=== PATIENT | female | born 1970 | race Caucasian/White ===

== ENCOUNTER 2017-05-15 15:57 | Emergency (ER) | payer MEDICAID, SELFPAY ==
[2017-05-15 15:57] VITALS: BP 154/87; PULSE 76; RESP 18; TEMP 36.6; O2SAT 98; BMI 34.4
--- NOTE | 2017-05-15 16:16 | CT_ITS ---
CT Abdomen And Pelvis W/O Contrast INDICATION: LLQ pain, hx diverticulitis. Prior appendectomy, cholecystectomy, partial colectomy, tubal ligation, . COMPARISON: None TECHNIQUE: Axial CT imaging of the abdomen and pelvis with coronal and sagittal reformatted images. Radiation dose optimization technique applied. FINDINGS: Visualized lung bases are clear. The heart size is normal. The liver and spleen are normal in size. The gallbladder is contracted or surgically absent. The kidneys are without evidence of hydronephrosis. 3 right renal calculi are seen measuring up to 2.5 mm. No renal calculi on the left. The bowel loops are nondistended. The appendix is not visualized. There is sigmoid diverticulosis without evidence of acute diverticulitis. The uterus is prominent in size and there is some lobulation at the posterior uterine segment, suggestive of a fibroid. Urinary bladder is decompressed. There is no evidence of free air or free fluid. Osseous structures demonstrate multilevel degenerative changes of the lumbar spine. CT/Abdomen/Pelvis without Cont IMPRESSION: Sigmoid diverticulosis without convincing evidence of acute diverticulitis at this time. Right-sided nephrolithiasis without evidence of hydronephrosis. at [id number] Reported and signed by: Daylin Horn MD Electronically Signed: Daylin Horn MD at 16:25 EST Tel , Service support ,
--- NOTE | 2017-05-15 16:18 | ED.DCSUM_ITS ---
- ER Visit Summary Date of Service: 05/15/17 Chief Complaint: Abdominal pain History of Present Illness: The patient is a 47 F with left lower quadrant abdominal pain that started this morning, about 8 or 9 hours ago, gradually worsening, feels similar to prior episodes of diverticulitis, for which she had to have an emergency partial colectomy in the past. She denies any fevers, nausea, vomiting. She had a normal loose bowel movement this morning without blood or melena. No pain in her back, no problems urinating. Physical Examination: Uncomfortable but in no distress, afebrile, vital signs unremarkable except for mild hypertension. She is moderately tender in the left lower quadrant but nowhere else, there is no guarding or rebound tenderness , abdomen is soft with normal bowel sounds present. No CVA tenderness. Lungs are clear, heart is regular without tachycardia. Oral mucous membranes are moist. Test Results: White blood count is 10.0 with a slight leftward shift. CT shows diverticulosis without convincing evidence of diverticulitis. Urine unremarkable except for trace blood. BMP unremarkable. Emergency Department Course and Treatment: Patient was treated with IV morphine , which helped and she remained stable and comfortable. My suspicion is that she has early diverticulitis despite the negative scan. Certainly there are no complications such as a perforation or an abscess. She was given empiric doses of IV Cipro and Flagyl and prescriptions for home use and she is asking for a work note for tomorrow. Encouraged to return if worse otherwise following up with her doctor for symptoms that persist longer than 5 or so days. Treatment Plan: As above Disposition: Discharge home Impression: Acute early colonic diverticulitis This note was generated with [employer] dictation software. It may contain incorrect words, spelling, and punctuation that were not noted in review of the chart prior to signing ED Disposition - Plan for ED Patient: Disposition: Home or Assisted Living Chief Complaint: Abd Pain Instructions: ED Diverticulitis Prescriptions: Ciprofloxacin [Cipro] 500 mg PO BID #20 tab Metronidazole [Flagyl] 500 mg PO BID #20 tab Referrals: Free Cari Sanchez [NON-STAFF] - 1 Week if not improving ()
[2017-05-15 16:34] LABS: Red Blood Cells-Urine 0 SEEN /hpf (0-5)
[2017-05-15 16:35] LABS: Absolute Lymphocyte Count 2.09 X10^3/ul (0.83-4.51); Absolute Neutrophil Count 7.2 X10^3/uL (2.0-7.7); Basophil# 0.02 X10^3/uL; Basophil% 0.2 % (0-1); Eosinophil# 0.12 X10^3/uL; Eosinophils% 1.2 % (0-5); Hematocrit 39.6 % (37-47); Hemoglobin 13.4 g/dl (12.0-15.0); Lymphocyte # 2.09 X10^3/ul (4.0); Mean Corp Hgb Conc 33.8 g/gl (32-36); Mean Corpuscular Hgb 29.8 pg (27.0-32.0); Mean Platelet Vol. 9.6 fl (6.2-12.0); Monocyte# 0.51 X10^3/uL; Monocyte% 5.1 % (0-10); Neutrophil # 7.19 X10^3/uL (2.7-7.7); Neutrophil % 72.3 % (47-70); POSITIVE COUNT NO; POSITIVE DIFFERENTIAL NO; POSITIVE MORPHOLOGY NO; Platelet Count 293 K/mm3 (150-450); RBC Distribution Width CV 12.9 % (11.6-14.6); RBC Distribution Width SD 40.4 fl (35.1-43.9)
[2017-05-15 16:36] LABS: Color, Urine Yellow (Yellow); Glucose, Dipstick Normal (Normal); Ketone-Dipstick 5 mg/dl (Negative); Leukocyte Esterase-Dipstick Negative /ul (Negative); Nitrite-Dipstick Negative (Negative); Occult Blood-Urine 10 /ul (Negative); Protein-Dipstick 15 mg/dl (Negative); Urine Bilirubin Dipstick Negative (Negative); Urine Clarity Clear (Clear); Urine Urobilinogen 1 mg/dl (Normal)
[2017-05-15 16:49] LABS: Mucous, Urine 3+ /hpf (<or=2+); Squamous Epithelial Cells - UA 5-10 SEEN /hpf (5-10)
[2017-05-15 16:50] LABS: White Blood Cells 0-5 SEEN /hpf (0-5)
[2017-05-15 16:52] LABS: Bacteria 2+ /hpf (None Seen)
[2017-05-15 16:54] LABS: Anion Gap 9 (5-15); BUN 11 mg/dL (7-18); BUN/Creat Ratio 18.6 RATIO (10-20); Calcium,Total 8.4 mg/dL (8.5-10.1); Chloride 107 mmol/L (98-107); Creatinine, Serum 0.59 mg/dL (0.55-1.02); EST Glomerular Filtration Rate 116 mL/min (>60); Est Glom Filt Rate - Afr Amer 140 mL/min (>60); Estimated Creatinine Clearance 94.23 ml/min; Glucose 139 mg/dL (74-106); Potassium 3.5 mmol/L (3.5-5.1); Sodium Level 139 mmol/L (136-145)
[2017-05-15 18:05] VITALS: BP 136/81; PULSE 96; RESP 12; O2SAT 98
[2017-05-15 19:58] VITALS: BP 138/73; PULSE 74; RESP 18; O2SAT 99
[2017-05-15 20:00] VITALS: BP 138/73; PULSE 74; RESP 18; O2SAT 99
== END 2017-05-15 20:10 | disposition home or self-care (01) ==
PROVIDERS: Emergency Provider Emergency Medicine; Family Provider Nurse Practitioner Family; PCP Nurse Practitioner Family
DX: K57.32 Diverticulitis of large intestine without perforation or abscess without bleeding (principal); I10 Essential (primary) hypertension; Z90.49 Acquired absence of other specified parts of digestive tract; F31.9 Bipolar disorder, unspecified
CPT/HCPCS: 74176; 80048; 81001; 85025; 96365; 96375; 99283; J7050; A4216; J0744

== ENCOUNTER 2017-06-04 08:52 | Day surgery (SDC) | payer MEDICAID, SELFPAY ==
[2017-06-04 09:10] VITALS: BP 110/91; PULSE 63; RESP 18; TEMP 36.9; O2SAT 97; BMI 33.3
[2017-06-04 09:14] LABS: Internal QC Validated? YES +Cl - CLEAR BKGD; Pregnancy, Urine Negative Negative
--- NOTE | 2017-06-04 10:48 | PCM.OPRPT ---
Problem List (1) Diverticulitis Status: Acute Report of Operation Date of Procedure: 06/04/17 Pre-Operative Diagnosis: History of diverticulitis and diverticular rupture Post-Operative Diagnosis: Diverticulosis Surgery/Procedure Performed:: Colonoscopy Description of Procedure: The major risks and benefits associated with the procedure were explained to the patient in detail. The patient verbalized understanding and agreement with the same. The patient was brought to the endoscopy suite. After adequate sedation was achieved, the patient was placed in the left lateral decubitus position and a digital rectal exam was performed. This examination was within normal limits. A well-lubricated colonoscope was then inserted into the rectum and advanced under direct visualization to the level of the cecum. The bowel prep was good. The cecum was identified by both visual and anatomic landmarks. A photograph was taken of the end of the cecum. The terminal ileum was intubated and was normal. The scope was then fully withdrawn while examining the color, texture, anatomy and integrity of the mucosa from the cecum to the anal canal. The findings were consistent with normal colonic mucosa. Over 6 minutes were taken to examine the colonic mucosa. The patient did still have some diverticulosis in the descending colon. The anastomosis was patent and normal-appearing. Upon reaching the rectum the scope was retroflexed to examine the distal rectal vault. The scope was then straightened and was completely retrieved upon exiting the anal canal and the procedure was terminated. The patient was then transferred to the recovery room in stable condition. Recommendations for follow up: 10 years
[2017-06-04 10:50] VITALS: BP 110/91; BP 116/63; PULSE 68; RESP 16; TEMP 36.3; O2SAT 98
[2017-06-04 10:55] VITALS: BP 110/91; BP 99/70; PULSE 70; RESP 16; O2SAT 98
[2017-06-04 11:00] VITALS: BP 110/91; BP 118/78; BP 123/69; PULSE 58; PULSE 62; RESP 16; TEMP 36.6; O2SAT 95; O2SAT 99
[2017-06-04 11:22] VITALS: BP 110/91
== END 2017-06-04 11:22 | disposition home or self-care (01) ==
LOC: EN 08:55 → AC 08:56
PROVIDERS: Anesthesiology; Family Provider Nurse Practitioner Family; PCP Nurse Practitioner Family; Visit Provider Surgery
PROC: 0DJD8ZZ Inspection of Lower Intestinal Tract, Via Natural or Artificial Opening Endoscopic (ICD-10-PCS; CPT 45378; principal; 2017-06-04 10:10)
DX: K57.90 Diverticulosis of intestine, part unspecified, without perforation or abscess without bleeding (principal); Z87.891 Personal history of nicotine dependence
CPT/HCPCS: 45378; 81025; J7120

== ENCOUNTER 2017-08-27 17:21 | Emergency (ER) | payer MEDICAID, SELFPAY ==
[2017-08-27 17:22] VITALS: BP 166/105; PULSE 101; RESP 16; TEMP 36.8; O2SAT 100; BMI 32.9
[2017-08-27 17:56] LABS: Glucose, Dipstick Normal (Normal); Ketone-Dipstick 15 mg/dl (Negative); Leukocyte Esterase-Dipstick Negative /ul (Negative); Nitrite-Dipstick Positive (Negative); Occult Blood-Urine 150 /ul (Negative); Protein-Dipstick 100 mg/dl (Negative); Urine Clarity Cloudy (Clear); Urine Urobilinogen 8 mg/dl (Normal)
[2017-08-27 18:00] LABS: Color, Urine SEE COMMENT BELOW (Yellow); Urine Bilirubin Dipstick 6 mg/dL (Negative)
--- NOTE | 2017-08-27 18:05 | CT_ITS ---
STUDY: CT ABDOMEN AND PELVIS WITHOUT CONTRAST REASON FOR EXAM: Female, 47 years old. Right-sided flank pain. History of diverticulitis, appendectomy, cholecystectomy and colectomy. RADIATION DOSAGE (If Supplied By Facility): CTDIvol = ( 11.75 ) mGy, DLP = ( 578.31 ) mGycm TECHNIQUE: Transaxial images were obtained from the dome of the diaphragm to the symphysis pubis without oral contrast, and without intravenous contrast. Sagittal and coronal images were reconstructed. Individualized dose optimization techniques were used for this CT. COMPARISON: Prior abdomen and pelvic CT exam of May 15, 2017 FINDINGS: The visualized lung bases are unremarkable. The visualized portions of the heart are within normal limits. Normal liver. There are surgical clips in the gallbladder fossa consistent with a prior cholecystectomy. Normal spleen. Normal pancreas. Normal bilateral adrenal glands. Moderate hydronephrosis of the right kidney and a dilated ureter to the level of a 3 mm stone at the right ureterovesicular junction. There is an additional 1 mm nonobstructing stone in the upper pole of the right kidney and a 1 mm stone in the lower mid pole of the right kidney. Normal left kidney without hydronephrosis or stones. Normal visualized stomach. Normal small intestine. Diverticulosis of the colon without evidence of acute diverticulitis. There are surgical clips in the region of the appendix consistent with a prior appendectomy. Normal abdominal aorta. Normal inferior vena cava. Normal retroperitoneum. 4.8 cm fibroid at the posterior uterine body. Negative for adnexal mass or free fluid of the pelvis. Small dysraphism of the anterior abdominal wall at the umbilicus. There are diffuse degenerative changes of the visualized lumbar spine. CT/Abdomen/Pelvis without Cont IMPRESSION: Moderate hydronephrosis of the right kidney secondary to a 3 mm stone at the right ureterovesicular junction. There are additional 1 mm nonobstructing stones in the right kidney in the upper and lower midpole. Normal left kidney without hydronephrosis or stones. Status post cholecystectomy. Diverticulosis. Status post appendectomy. 4.8 cm uterine fibroid. Small dysraphism of the anterior abdominal wall at the umbilicus. Electronically Signed: Ignacia De Luna MD at 19:08 EDT , Service support ,
[2017-08-27 18:18] LABS: Bacteria 1+ /hpf (None Seen); Mucous, Urine 1+ /hpf (<or=2+); Red Blood Cells-Urine 5-10 SEEN /hpf (0-5); Squamous Epithelial Cells - UA 5-10 SEEN /hpf (5-10); White Blood Cells 0-5 SEEN /hpf (0-5)
[2017-08-27 18:24] LABS: Pregnancy, Serum, hCG Quali. NEGATIVE Negative (0-9 Nonpreg)
[2017-08-27] MEDS: Ondansetron 4 MG/2 ML Vial IV (18:24)
[2017-08-27] MEDS: Morphine 4 MG/ML Syringe IV (18:24)
[2017-08-27] MEDS: 0.9% Normal Saline 1,000 ML 250 ML IV (18:25)
[2017-08-27] MEDS: Ketorolac 30 MG/ML Syringe IV (18:25)
[2017-08-27 18:32] LABS: Absolute Neutrophil Count 13.3 X10^3/uL (2.0-7.7); Basophil# 0.02 X10^3/uL; Basophil% 0.1 % (0-1); Eosinophil# 0.02 X10^3/uL; Eosinophils% 0.1 % (0-5); Hemoglobin 14.2 g/dl (12.0-15.0); Lymphocyte % 8.3 % (19-41); Mean Corp Hgb Conc 33.8 g/gl (32-36); Mean Corpuscular Hgb 29.4 pg (27.0-32.0); Mean Platelet Vol. 9.3 fl (6.2-12.0); Monocyte# 1.06 X10^3/uL; Monocyte% 6.7 % (0-10); Neutrophil # 13.29 X10^3/uL (2.7-7.7); Neutrophil % 84.6 % (47-70); Platelet Count 347 K/mm3 (150-450); RBC Distribution Width CV 12.4 % (11.6-14.6); Red Blood Count 4.83 M/mm3 (4.2-5.4); White Blood Count 15.7 K/mm3 (4.4-11.0)
[2017-08-27 18:39] LABS: POSITIVE COUNT NO; POSITIVE DIFFERENTIAL NO; POSITIVE MORPHOLOGY NO
[2017-08-27 18:41] LABS: Anion Gap 12 (5-15); BUN 11 mg/dL (7-18); BUN/Creat Ratio 11.1 RATIO (10-20); Calcium,Total 9.5 mg/dL (8.5-10.1); Chloride 104 mmol/L (98-107); EST Glomerular Filtration Rate 64 mL/min (>60); Est Glom Filt Rate - Afr Amer 77 mL/min (>60); Glucose 137 mg/dL (74-106); Potassium 3.2 mmol/L (3.5-5.1); Sodium Level 135 mmol/L (136-145)
--- NOTE | 2017-08-27 20:14 | ED.DCSUM_ITS ---
- ER Visit Summary Date of Service: 08/27/17 Chief Complaint: Right flank pain History of Present Illness: The patient is a 47 F with rather quick onset of right flank pain today. Patient states she has had some dysuria today but no obvious hematuria. She reports nausea but no vomiting. She has had subjective fevers. Past history significant for ovarian cyst, diverticulitis, and bipolar disorder. Patient has had prior appendectomy. Physical Examination: Blood pressure is 166/105, temperature 98.2, heart rate 101, respiratory rate 16, pulse ox 100% on room air. Patient's lying in bed. She is uncomfortable and holding her right lower quadrant. Head and neck examination is unremarkable. Heart is regular rate and rhythm. Lung sounds are clear. Abdomen is soft with mild tenderness to the right lower quadrant. There is no guarding or rebound and she allows deep palpation throughout. No active bowel sounds are noted. Back examination does reveal mild CVA tenderness on the right. Test Results: CBC was a white count of 15.7 with 85% neutrophils. Chemistry studies are significant for a sodium of 135, potassium 3.2, bicarb 19. Urinalysis is positive for nitrites and 150 of blood. She has 0-5 white blood cells of 5-10 epithelial cells. Patency test is negative. CT flank reveals moderate hydronephrosis of the right kidney secondary to 3 mm stone at the right UVJ. Emergency Department Course and Treatment: Patient was given Toradol, morphine, Zofran, and IV fluids. A repeat evaluation she is resting much more comfortably. Test results were discussed with her. Urine was sent for culture. Patient was given specific return instructions is given prescriptions for Toradol, [place], and Zofran. The time of discharge vital signs include blood pressure of 138/81 with a heart rate of 74. Treatment Plan: [] Disposition: Discharge Impression: right-sided ureterolithiasis This note was generated with [employer] dictation software. It may contain incorrect words, spelling, and punctuation that were not noted in review of the chart prior to signing ED Disposition - Plan for ED Patient: Disposition: Home or Assisted Living Chief Complaint: Flank Pain Instructions: ED Stone Renal W Colic Prescriptions: Ondansetron [Zofran Odt] 4 mg PO Q8H PRN PRN #10 tab PRN Reason: Nausea Hydrocodone/Acetaminophen [[place] 5-325 Tablet] 1 - 2 each PO 4X/DAY PRN PRN 5 Days #20 tablet PRN Reason: Pain Ketorolac [Toradol] 10 mg PO Q6H PRN #14 tab PRN Reason: Pain Referrals: Alexy Gamble MD [STAFF PHYSICIAN] - 3-5 Days if not improving Nita Jensen STATUE CARVER-C [Primary Care Provider] -
--- NOTE | 2017-08-27 20:14 | ED.DEP ---
ED Disposition - Plan for ED Patient: Disposition: Home or Assisted Living Chief Complaint: Flank Pain Instructions: ED Stone Renal W Colic Prescriptions: Ondansetron [Zofran Odt] 4 mg PO Q8H PRN PRN #10 tab PRN Reason: Nausea Hydrocodone/Acetaminophen [[place] 5-325 Tablet] 1 - 2 each PO 4X/DAY PRN PRN 5 Days #20 tablet PRN Reason: Pain Ketorolac [Toradol] 10 mg PO Q6H PRN #14 tab PRN Reason: Pain Referrals: Nita Jensen, CHASE-C [Primary Care Provider] - Alexy Gamble MD [STAFF PHYSICIAN] - 3-5 Days if not improving
--- NOTE | 2017-08-27 20:18 | DCINST.ED_ITS ---
ED Disposition - Plan for ED Patient: Disposition: Home or Assisted Living Chief Complaint: Flank Pain Instructions: ED Stone Renal W Colic Prescriptions: Ondansetron [Zofran Odt] 4 mg PO Q8H PRN PRN #10 tab PRN Reason: Nausea Hydrocodone/Acetaminophen [[place] 5-325 Tablet] 1 - 2 each PO 4X/DAY PRN PRN 5 Days #20 tablet PRN Reason: Pain Ketorolac [Toradol] 10 mg PO Q6H PRN #14 tab PRN Reason: Pain Referrals: Nita Jensen, [facility]C [Primary Care Provider] - Alexy Gamble MD [STAFF PHYSICIAN] - 3-5 Days if not improving
[2017-08-27 20:35] VITALS: BP 138/81; PULSE 74; RESP 16
== END 2017-08-27 20:35 | disposition home or self-care (01) ==
PROVIDERS: Emergency Provider Emergency Medicine; Family Provider Nurse Practitioner Family; PCP Nurse Practitioner Family
DX: N20.1 Calculus of ureter (principal); Z87.891 Personal history of nicotine dependence; N13.30 Unspecified hydronephrosis
CPT/HCPCS: 74176; 80048; 81001; 84703; 85025; 87086; 99283; J7030; J2405

== ENCOUNTER 2017-09-06 15:49 | Emergency (ER) | payer MEDICAID, SELFPAY ==
--- NOTE | 2017-09-06 15:49 | DT_ITS ---
This patient was seen during an EMR downtime September 06, 2017 - September 13, 2017. This patient may have a combination of paper and electronic documentation or all paper documentation. All documentation is viewable within the e-chart portion of [employer] for each patient visit.
--- NOTE | 2017-09-06 19:10 | RAD_ITS ---
STUDY: X-RAY - RIGHT RADIUS AND ULNA REASON FOR EXAM: Female, 47 years old. Trauma TECHNIQUE: 2 view(s) of the forearm. COMPARISON: None. FINDINGS: There is no evidence of fracture or dislocation. There are no significant degenerative changes. There are no radiodense foreign bodies. RAD/Forearm 2 Views IMPRESSION: No fracture or dislocation. Electronically Signed: Tomi Saenz, at 18:05 EDT Tel , Service support ,
== END 2017-09-06 20:00 | disposition home or self-care (01) ==
LOC: ED 09-08 13:49
PROVIDERS: Emergency Provider Emergency Medicine; Family Provider Nurse Practitioner Family; PCP Nurse Practitioner Family
DX: S50.11XA Contusion of right forearm, initial encounter (principal); X58.XXXA Exposure to other specified factors, initial encounter; J44.9 Chronic obstructive pulmonary disease, unspecified
CPT/HCPCS: 73090; 99282

== ENCOUNTER → 2017-11-09 11:01 | Outpatient (CLI) | payer MEDICAID, SELFPAY ==
--- NOTE | 2017-11-09 19:55 | LEAS_ITS ---
Arterial Study - Arterial Study Arterial Study: This is a 47-year-old female with a history of hypertension, hyperlipidemia, and leg pain. Suspecting the presence of atherosclerotic peripheral arterial occlusive disease, the patient was brought to the noninvasive vascular laboratory at this time for the purpose of bilateral noninvasive lower extremity arterial assessment. Doppler signal assessment was used to evaluate the pulses at ankle level bilaterally. The posterior tibial and dorsalis pedis pulses were triphasic bilaterally. Segmental limb pressures were obtained at ankle level bilaterally. The right ankle pressure, as determined by posterior tibial pulse, was measured at 208 mmHg. The right ankle pressure, as determined by dorsalis pedis pulse, was measured at 186 mmHg. The left ankle pressure, as determined by posterior tibial pulse, was measured at 211 mmHg. The left ankle pressure, as determined by dorsalis pedis pulse, was measured at 182 mmHg. Pulse-volume recordings were obtained bilaterally and segmentally. Waveform amplitudes appeared to be satisfactory at all levels bilaterally, including low thigh, calf, ankle, and digital levels. Resting ankle-brachial indices were calculated bilaterally. The resting right ankle-brachial index was calculated to be 1.25. The resting left ankle- brachial index was calculated to be 1.27. Impression: Based upon the findings of this resting noninvasive lower extremity arterial study, there is no evidence of significant atherosclerotic peripheral arterial occlusive disease in the lower extremities bilaterally. Triphasic waveforms are noted at ankle level bilaterally. Resting ankle-brachial indices were bilaterally normal. In summary, this represents a normal resting noninvasive lower extremity arterial study bilaterally. An exercise portion of the study was not performed as the patient was fearful of falling.
== END ==
DX: R60.9 Edema, unspecified (principal)
CPT/HCPCS: 93923

== ENCOUNTER 2017-11-11 13:17 | Emergency (ER) | payer MEDICAID, SELFPAY ==
[2017-11-11 13:17] VITALS: BP 140/104; PULSE 108; RESP 16; TEMP 36.4; O2SAT 98; BMI 32.9
--- NOTE | 2017-11-11 13:31 | RAD_ITS ---
STUDY: X-RAY - RIGHT KNEE REASON FOR EXAM: Female, 47 years old. Right knee pain. TECHNIQUE: 4 view(s) of the right knee. COMPARISON: No prior right knee images available. FINDINGS: No finding of acute displaced fracture, dislocation or radiopaque foreign body. Moderate diffuse suprapatellar density noted, may represent joint effusion and/or soft tissue swelling. Visualized bony joint spaces appear intact with moderate medial/patellar femoral and mild lateral compartmental narrowing, subchondral sclerosis and marginal osteophytes noted. Minimal marginal osteophyte projects laterally from the patellar articular margin and medial greater than lateral tibial spines. The soft tissue structures visualized appear nonacute. RAD/Knee 4 or More Views IMPRESSION: Right knee suprapatellar joint effusion and/or soft tissue swelling. Multicompartmental degenerative right knee as described. Electronically Signed: Donald Blackwell, at 14:55 EDT Tel , Service support ,
--- NOTE | 2017-11-11 13:33 | VDLE_ITS ---
Reason For Study: swelling RIGHT GSV is normal. CFV is compressible, spontaneous, phasic, competent and demonstrates normal augmentation. FV is compressible, spontaneous, phasic, competent and demonstrates normal augmentation. POP V is compressible, spontaneous, phasic, competent and demonstrates normal augmentation. T/P Trunk is compressible. PTV is compressible. RT PerV is compressible. Procedure Exam performed portable in ED. The exam was diagnostic. A preliminary report was called and/or faxed to Dr. Chin. Interpretation Summary Deep veins of the right lower extremity are patent and compressible segmentally. There is no evidence of right lower extremity deep vein thrombosis. Valvular competence appears intact within the proximal deep venous system on the right . The right greater saphenous vein appears patent and compressible segmentally. Ordering Physician: Conor Chin Referring Physician: [facility] Cari Sanchez Performed By: Erwin Herring RVT
[2017-11-11] MEDS: Ketorolac 60 MG/2 ML Vial IM (13:43)
--- NOTE | 2017-11-11 14:53 | ED.VISSUMM ---
- ER Visit Summary Date of Service: 11/11/17 Chief Complaint: [] Right knee pain for weeks history of osteoarthritis involving left knee History of Present Illness: The patient is a 47 F [] history of osteoarthritis involving the left knee she has been seen by multiple physicians including orthopedics, she is scheduled to be seen by some rheumatology physician, she is followed by the Cari mitchell in clinic, she indicates for the last week or so she has had worsening pain in the right knee and popping and clicking sensations when she moves the knee consistent with what she experiences in the left knee she has had no direct trauma to the knee she is really not troubled by knee pain involving the right knee again she does indicate she has history of arthritis no fever no cough no history of DVT PE Physical Examination: [] She complaining of pain to the right knee head neck chest unremarkable her vital signs are generally within normal range her general exam really unremarkable the right knee she has full range of motion she feels a popping sensation when she moves the knee but there is full flexion-extension there is no effusion patella is in good position the tib-fib ankle and foot are unremarkable neurovascular function normal there is no signs of DVT and again neurovascular exam is normal, there is nothing to suggest infection Test Results: [] Emergency Department Course and Treatment: [] X-ray shows DJD duplex scan shows nothing acute no DVT or Gray's cyst explained test results to her she does not wish to have crutches she will be given Naprosyn and instructed follow-up with her follow-up physicians as above and return for change in symptoms Treatment Plan: [] Disposition: [] Home stable Impression: [] Right knee pain suspect related to arthritis This note was generated with [employer] dictation software. It may contain incorrect words, spelling, and punctuation that were not noted in review of the chart prior to signing ED Disposition - Plan for ED Patient: Chief Complaint: Lower Extremity Injury Referrals: Tl Sanchez,Cari Moore [Primary Care Provider] -
--- NOTE | 2017-11-11 14:56 | ED.DCSUM_ITS ---
- ER Visit Summary Date of Service: 11/11/17 Chief Complaint: [] Right knee pain for weeks history of osteoarthritis involving left knee History of Present Illness: The patient is a 47 F [] history of osteoarthritis involving the left knee she has been seen by multiple physicians including orthopedics, she is scheduled to be seen by some rheumatology physician, she is followed by the Cari mitchell in clinic, she indicates for the last week or so she has had worsening pain in the right knee and popping and clicking sensations when she moves the knee consistent with what she experiences in the left knee she has had no direct trauma to the knee she is really not troubled by knee pain involving the right knee again she does indicate she has history of arthritis no fever no cough no history of DVT PE Physical Examination: [] She complaining of pain to the right knee head neck chest unremarkable her vital signs are generally within normal range her general exam really unremarkable the right knee she has full range of motion she feels a popping sensation when she moves the knee but there is full flexion- extension there is no effusion patella is in good position the tib-fib ankle and foot are unremarkable neurovascular function normal there is no signs of DVT and again neurovascular exam is normal, there is nothing to suggest infection Test Results: [] Emergency Department Course and Treatment: [] X-ray shows DJD duplex scan shows nothing acute no DVT or Gray's cyst explained test results to her she does not wish to have crutches she will be given Naprosyn and instructed follow-up with her follow-up physicians as above and return for change in symptoms Treatment Plan: [] Disposition: [] Home stable Impression: [] Right knee pain suspect related to arthritis This note was generated with [employer] dictation software. It may contain incorrect words, spelling, and punctuation that were not noted in review of the chart prior to signing ED Disposition - Plan for ED Patient: Chief Complaint: Lower Extremity Injury Referrals: Tl Sanchez,Cari Moore [Primary Care Provider] -
--- NOTE | 2017-11-11 14:56 | ED.DEP ---
ED Disposition - Plan for ED Patient: Chief Complaint: Lower Extremity Injury Instructions: ED Knee Pain UKO Prescriptions: Naproxen [Naprosyn] 500 mg PO BID #14 tab Referrals: Tl Sanchez,Cari Moore [Primary Care Provider] -
== END 2017-11-11 15:04 | disposition home or self-care (01) ==
PROVIDERS: Emergency Provider Emergency Medicine
DX: M25.561 Pain in right knee (principal); M17.12 Unilateral primary osteoarthritis, left knee
CPT/HCPCS: 73564; 93971; 99282

== ENCOUNTER 2017-11-23 19:03 | Emergency (ER) | payer MEDICAID, SELFPAY ==
[2017-11-23 19:03] VITALS: BP 158/94; PULSE 92; RESP 16; TEMP 36.9; O2SAT 98; BMI 32.9
--- NOTE | 2017-11-23 20:13 | ED.DCSUM_ITS ---
- ER Visit Summary Date of Service: 11/23/17 Chief Complaint: Right knee pain History of Present Illness: The patient is a 47 F presenting with right knee pain. She states this started yesterday. She states she tripped over her dog. She twisted her knee. She had no direct trauma to her knee. She has a history of chronic knee pain. She tried ibuprofen at home with some relief. She is able to ambulate with pain. Denies fever or other complaints. Physical Examination: Vitals are stable. Patient is afebrile. Alert no acute distress. HEENT exam is unremarkable. Lungs are clear and equal bilaterally. Heart is regular rate and rhythm. Extremities mild medial right knee tenderness. Active full range of motion. No effusion. Normal distal pulse. No warmth or erythema. Skin is warm and dry. No focal neurologic deficit. Normal strength and sensation. Remainder of exam is unremarkable. Emergency Department Course and Treatment: X-rays are not indicated at this time. She is given one dose of morphine, Zofran IM. She is advised to continue her ibuprofen at home. Advised to follow-up with her primary care physician. Advised return ED for worsening complaints. Disposition: Discharge home Impression: Right knee sprain, chronic right knee pain This note was generated with [employer] dictation software. It may contain incorrect words, spelling, and punctuation that were not noted in review of the chart prior to signing ED Disposition - Plan for ED Patient: Chief Complaint: Lower Extremity Injury Referrals: Nita Jensen NP-C [Primary Care Provider] -
--- NOTE | 2017-11-23 20:21 | ED.DEP ---
ED Disposition - Plan for ED Patient: Chief Complaint: Lower Extremity Injury Instructions: ED Sprain Knee Referrals: Nita Jensen NP-C [Primary Care Provider] -
[2017-11-23] MEDS: morphine 8 MG/ML Syringe IM (20:27)
[2017-11-23] MEDS: Ondansetron 4 MG/2 ML Vial IM (20:28)
--- NOTE | 2017-11-23 20:44 | ED.DEP ---
ED Disposition - Plan for ED Patient: Chief Complaint: Lower Extremity Injury Instructions: ED Sprain Knee Referrals: Nita Jensen, CHASE-C [Primary Care Provider] - Naomie Thakur DO [STAFF PHYSICIAN] -
== END 2017-11-23 20:51 | disposition home or self-care (01) ==
PROVIDERS: Emergency Provider Emergency Medicine; Family Provider Nurse Practitioner Family; PCP Nurse Practitioner Family
DX: M25.561 Pain in right knee (principal); G89.29 Other chronic pain; S83.91XA Sprain of unspecified site of right knee, initial encounter; W01.0XXA Fall on same level from slipping, tripping and stumbling without subsequent striking against object, initial encounter; Y93.9 Activity, unspecified; Y92.89 Other specified places as the place of occurrence of the external cause; Y99.9 Unspecified external cause status
CPT/HCPCS: 99283; J2405

== ENCOUNTER 2018-04-29 22:43 | Emergency (ER) | payer MEDICAID, SELFPAY ==
[2018-04-29 22:43] VITALS: BP 170/103; PULSE 105; RESP 18; TEMP 36.5; O2SAT 97; BMI 34.2
--- NOTE | 2018-04-29 23:00 | ED.VISSUMM ---
- ER Visit Summary Date of Service: 04/29/18 Chief Complaint: Dental pain History of Present Illness: The patient is a 48 F who presents with dental pain. She cracked a tooth while biting into ham earlier today. She broke 1 of her left lower teeth. She has had pain since that time. She has tried Tylenol and Aleve with little relief. She did call and make an appointment with a dentist for May 10. She denies fever. No difficulty swallowing. She denies recent illness. Physical Examination: Afebrile heart rate 105 Patient has a Mcgarry 3 fracture of the left mandibular second molar No trismus Clear speech Heart regular No respiratory distress Alert Test Results: Not indicated Emergency Department Course and Treatment: Left inferior alveolar nerve block was performed here. She was given a home pack of [place] and a prescription for short course of the same. I do not believe antibiotics are indicated at this time. She understands to return for new or worsening symptoms. She was advised to keep her scheduled follow-up with the dentist and was discharged home. Treatment Plan: [] Disposition: Discharge Impression: Dental fracture This note was generated with [employer] dictation software. It may contain incorrect words, spelling, and punctuation that were not noted in review of the chart prior to signing ED Disposition - Plan for ED Patient: Chief Complaint: Dental Referrals: Nita Jensen NP-C [Primary Care Provider] -
--- NOTE | 2018-04-29 23:04 | ED.DCSUM_ITS ---
- ER Visit Summary Date of Service: 04/29/18 Chief Complaint: Dental pain History of Present Illness: The patient is a 48 F who presents with dental pain. She cracked a tooth while biting into ham earlier today. She broke 1 of her left lower teeth. She has had pain since that time. She has tried Tylenol and Aleve with little relief. She did call and make an appointment with a dentist for May 10. She denies fever. No difficulty swallowing. She denies recent illness. Physical Examination: Afebrile heart rate 105 Patient has a Mcgarry 3 fracture of the left mandibular second molar No trismus Clear speech Heart regular No respiratory distress Alert Test Results: Not indicated Emergency Department Course and Treatment: Left inferior alveolar nerve block was performed here. She was given a home pack of [place] and a prescription for short course of the same. I do not believe antibiotics are indicated at this time. She understands to return for new or worsening symptoms. She was advised to keep her scheduled follow-up with the dentist and was discharged home. Treatment Plan: [] Disposition: Discharge Impression: Dental fracture This note was generated with [employer] dictation software. It may contain incorrect words, spelling, and punctuation that were not noted in review of the chart prior to signing ED Disposition - Plan for ED Patient: Chief Complaint: Dental Referrals: Nita Jensen NP-C [Primary Care Provider] -
--- NOTE | 2018-04-29 23:04 | ED.DEP ---
ED Disposition - Plan for ED Patient: Chief Complaint: Dental Instructions: ED Fx Tooth Prescriptions: Hydrocodone Bitart/Apap 5-325 [[place] 5MG-325MG] 1 tab PO Q4H PRN PRN 2 Days #8 tab PRN Reason: Pain Referrals: Nita Jensen, CONTRACT POST OFFICE CLERK-C [Primary Care Provider] -
--- NOTE | 2018-04-29 23:05 | DCINST.ED_ITS ---
ED Disposition - Plan for ED Patient: Chief Complaint: Dental Instructions: ED Fx Tooth Prescriptions: Hydrocodone Bitart/Apap 5-325 [[place] 5MG-325MG] 1 tab PO Q4H PRN PRN 2 Days #8 tab PRN Reason: Pain Referrals: Nita Jensen, MANAGER UNIX-C [Primary Care Provider] -
[2018-04-29] MEDS: HYDROcodone Bitartrate/Apap 5/325 Tablet PO (23:08)
== END 2018-04-29 23:09 | disposition home or self-care (01) ==
PROVIDERS: Emergency Provider Emergency Medicine; Family Provider Nurse Practitioner Family; PCP Nurse Practitioner Family
DX: S02.5XXA Fracture of tooth (traumatic), initial encounter for closed fracture (principal); X58.XXXA Exposure to other specified factors, initial encounter; Y93.9 Activity, unspecified; Y92.89 Other specified places as the place of occurrence of the external cause; Y99.9 Unspecified external cause status
CPT/HCPCS: 64402; 99282

== ENCOUNTER 2018-04-30 21:54 | Emergency (ER) | payer MEDICAID, SELFPAY ==
[2018-04-30 11:26] VITALS: BMI 34.6
[2018-04-30 21:54] VITALS: BP 163/132; PULSE 98; RESP 16; TEMP 36.9; O2SAT 99; BMI 35.8
[2018-04-30 22:01] VITALS: BP 168/114
--- NOTE | 2018-04-30 22:06 | ED.VISSUMM ---
- ER Visit Summary Date of Service: 04/30/18 Chief Complaint: [] Left lower dental pain tooth cracked History of Present Illness: The patient is a 48 F [] she was biting down the tooth is decayed left lower and a cracked the other day was seen in urgent care started on penicillin she has what she reports is ineffective pain management she is scheduled to be seen [facility] next week could not take the pain she came in for evaluation via EMS Physical Examination: [] She is complaining of dental pain no other complaints no trauma afebrile Is an obvious decayed partially cracked tooth to the left lower she has had dental extractions she has other dental decay that are not actively bothering her the floor of the mouth neck is unremarkable chest abdomen upper lower extremities otherwise negative The patient this time we will provide her [place] to cover the cracked tooth Toradol Tylenol for pain Naprosyn for home use continue the antibiotic she was prescribed and follow-up with the dental services for further management is nothing additional can be done through the emergency department for this process Test Results: [] Emergency Department Course and Treatment: [] Treatment Plan: [] Disposition: [] Home stable Impression: [] Dental decay dental pain This note was generated with [employer] dictation software. It may contain incorrect words, spelling, and punctuation that were not noted in review of the chart prior to signing ED Disposition - Plan for ED Patient: Chief Complaint: Dental Referrals: Nita Jensen, CHASE-C [Primary Care Provider] -
--- NOTE | 2018-04-30 22:09 | DCINST.ED_ITS ---
ED Disposition - Plan for ED Patient: Chief Complaint: Dental Instructions: ED Tooth Pain Prescriptions: Naproxen [Naprosyn] 500 mg PO BID PRN #20 tab Referrals: Nita Jensen BILINGUAL CUSTOMER SERVICE-C [Primary Care Provider] -
[2018-04-30] MEDS: Acetaminophen 500 MG Tablet 1000 MG PO (22:50)
[2018-04-30] MEDS: Ketorolac 60 MG/2 ML Vial IM (22:50)
[2018-04-30 23:40] VITALS: PULSE 82; RESP 16
== END 2018-04-30 23:15 | disposition home or self-care (01) ==
LOC: ED 22:15
PROVIDERS: Emergency Provider Emergency Medicine; Family Provider Nurse Practitioner Family; PCP Nurse Practitioner Family
DX: K02.9 Dental caries, unspecified (principal); K08.89 Other specified disorders of teeth and supporting structures; K03.81 Cracked tooth
CPT/HCPCS: 64402; 96372; 99284

== ENCOUNTER 2019-01-21 17:24 | Emergency (ER) | payer MEDICAID, SELFPAY ==
[2019-01-21 17:25] VITALS: BP 154/100; PULSE 97; RESP 14; TEMP 37.6; O2SAT 100; BMI 34.5
--- NOTE | 2019-01-21 17:38 | ED.DCSUM_ITS ---
History of Present Illness Chief Complaint: Back Detail of Chief Complaint: Sciatica Informant: Patient Onset: Days Context: Gradual Onset Current Severity: Moderate Maximum Severity: Moderate Narrative: Patient presents with back pain rating down the right leg consistent with prior bouts of sciatica. She has had sciatica in the left leg before but never on the right. She did start a new job recently has been on her feet more than normal. She denies any direct trauma to her back. Pain goes on the back of her thigh, wraps to the lateral side of the lower leg, and over the top of her foot. Past Medical History - Allergies and Home Meds Allergies/Adverse Reactions: Allergies latex Allergy (Verified 01/21/19 17:27) Rash Primary Care Physician: Nita Jensen NP-C [Primary Care Provider] - Prior records reviewed: Yes Past Medical History: - - Reviewed Surgical History: appendectomy, cholecystectomy, - - Tubal ligation, Lives: With Family Smoking Status: Current every day smoker - Family History Maternal Family History: Family History (Last Updated 04/30/18 @ 11:26 by Aure Butler) Mother Hypertension High cholesterol Father Hypertension Other Cancer Family History: Reports: Hypertension Paternal Family History: Family History (Last Updated 04/30/18 @ 11:26 by Aure Butler) Mother Hypertension High cholesterol Father Hypertension Other Cancer Family History: Reports: Heart Disease, Hypertension Review of Systems General: Denies: Chills, Fever Eyes: Denies: Visual changes - bilaterally ENT: Denies: Bilateral ear pain Cardiovascular: Denies: Chest pain Respiratory: Denies: Dyspnea Gastrointestinal: Denies: Abdominal pain Musculoskeletal: Reports: Back pain, Extremity Pain. Denies: Swelling Skin: Denies: Rash Neurological: Denies: Weakness, Parasthesia Hematologic: Denies: Easy bruising Allergy: Denies: Uticaria Physical Exam Vital Signs/Narrative: Vital Signs Temp Pulse Resp BP Pulse Ox 01/21/19 17:25 99.6 F H 97 14 154/100 H 100 Inital Vital Signs reviewed: Yes General: Well nourished, Well developed Head: Normocephalic ENT: Moist mucous membranes Neck: Supple Cardiovascular: Regular rate, Regular rhythm Respiratory: No distress, CTA bilaterally Abdomen: Soft, Nontender Back: - - Reproducible tenderness in the right sciatic notch. No midline lumbar tenderness. Skin: Normal color Neurological: Alert, Oriented x3, Normal Strength, Normal Sensation, - - 1+ bilateral patellar reflexes. Strong distal pulses are noted. Psychological: Normal affect Diagnostic/Tx/Re-eval - Medical Decision Making Patient is requesting a shot will be given Kenalog IM here. She will also be given naproxen and Flexeril. ED Disposition - Plan for ED Patient: Disposition: Home or Assisted Living Diagnosis: Sciatica Instructions: BACK PAIN w/ SCIATICA Prescriptions: cycloBENZAPRine HCl [Flexeril] 10 mg PO TID PRN #10 tablet PRN Reason: Muscle Spasm Naproxen [Naprosyn] 500 mg PO BID PRN PRN #20 tablet PRN Reason: Pain Score 1-10/10 Referrals: Nita Jensen, PHYSICAL ANTHROPOLOGIST-C [Primary Care Provider] - 1 Week
[2019-01-21 18:08] VITALS: RESP 20
[2019-01-21] MEDS: Naproxen 500 MG Tablet PO (18:10)
[2019-01-21] MEDS: cycloBENZAPRine HCl 10 MG Tablet PO (18:11)
[2019-01-21] MEDS: Triamcinolone Acetonide 40 MG/ML Vial 80 MG IM (18:11)
[2019-01-21 18:38] VITALS: PULSE 88; RESP 16; O2SAT 99
== END 2019-01-21 18:39 | disposition home or self-care (01) ==
PROVIDERS: Emergency Provider Emergency Medicine
DX: M54.30 Sciatica, unspecified side (principal); F17.200 Nicotine dependence, unspecified, uncomplicated; Z82.49 Family history of ischemic heart disease and other diseases of the circulatory system; Z90.49 Acquired absence of other specified parts of digestive tract; Z91.040 Latex allergy status
CPT/HCPCS: 96372; 99283

== ENCOUNTER 2019-08-24 14:27 | Emergency (ER) | payer MEDICAID, SELFPAY ==
[2019-02-16 16:45] VITALS: BMI 34.5
[2019-08-24 14:27] VITALS: BP 155/93; PULSE 99; RESP 16; TEMP 36.4; O2SAT 98; BMI 33.7
--- NOTE | 2019-08-24 15:35 | ED.DCSUM_ITS ---
History of Present Illness Chief Complaint: Back Informant: Patient Onset: Yesterday Context: Gradual Onset Injury: Fall Quality: Sharp, Aching Narrative: Is a 49-year-old female with history of anxiety presenting with right buttocks pain. Patient states she fell down some steps a couple days ago when she slipped while taking out her dog. She is had pain in her left buttock since. She is tried taking Motrin with no relief of her pain at home. She denies any associated numbness or weakness of the leg. The pain does not radiate. She denies any incontinence, saddle anesthesia or fever. Patient states she has had sciatica in the past and has had to get a pain shot in the past. Patient denies any other injury when she fell. She denies any other complaints at this time. Past Medical History - Allergies and Home Meds Allergies/Adverse Reactions: Allergies latex Allergy (Verified 01/21/19 17:27) Rash Primary Care Physician: [facility] Cari Sanchez [Primary Care Provider] - Past Medical History: - - Anxiety Surgical History: appendectomy, cholecystectomy, - - Tubal ligation, Lives: With Family Smoking Status: Former smoker - Family History Maternal Family History: Family History (Last Updated 04/30/18 @ 11:26 by Aure Butler) Mother Hypertension High cholesterol Father Hypertension Other Cancer Family History: Reports: Hypertension Paternal Family History: Family History (Last Updated 04/30/18 @ 11:26 by Aure Butler) Mother Hypertension High cholesterol Father Hypertension Other Cancer Family History: Reports: Heart Disease, Hypertension Review of Systems General: Denies: Chills, Fever, Sweats Eyes: Denies: Visual changes - bilaterally, Diplopia ENT: Denies: Rhinorrhea, Sore throat Cardiovascular: Denies: Chest pain, Palpitations Respiratory: Denies: Dyspnea, Cough, Dyspnea on exertion Gastrointestinal: Denies: Abdominal pain, Nausea, Vomiting, Diarrhea Genitourinary: Denies: Dysuria, Hematuria, Frequency Musculoskeletal: Reports: Extremity Pain - Left buttocks. Denies: Back pain Skin: Denies: Rash, Wounds Neurological: Denies: Headache, Weakness, Numbness Physical Exam Vital Signs/Narrative: Vital Signs Temp Pulse Resp BP Pulse Ox 08/24/19 14:27 97.5 F L 99 16 155/93 H 98 Inital Vital Signs reviewed: Yes General: Well nourished, Well developed Head: Normocephalic, Atraumatic Eyes: Perrl, EOMI ENT: Moist mucous membranes, No rhinorrhea, TM's clear Neck: Supple, Nontender Cardiovascular: Regular rate, Regular rhythm, No murmurs Respiratory: No distress, CTA bilaterally, Chest nontender Abdomen: Soft, Nontender, Nondistended, Normal bowel sounds Back: Normal Inspection, Nontender, Negative SLR - Right, Negative SLR - Left. Negative for: Spinal tenderness, Paraspinal Tenderness, CVA tenderness Extremeties: No edema, Strong Pulses, Symmetric, - - Very reproducible tenderness palpation of the center of the right gluteus muscle. Negative for: Edema Skin: Normal color, No rash Neuro: Alert, Oriented, Normal Strength, Normal Sensation, Normal DTR, Normal Gait Psychological: Normal affect, Normal Mood Diagnostic/Tx/Re-eval - Medical Decision Making She is evaluated for right buttocks pain. She has a normal neurologic exam. She does not have any red flag symptoms for cauda equina syndrome. The pain is quite reproducible on palpation. She denies any bony tenderness. I do not think imaging is indicated. I do question if she has sciatica versus piriformis syndrome. Regardless, patient is treated with IM morphine in the emergency room be discharged home in a muscle relaxer. She is agreeable this plan. She is given a work note for today. Patient is counseled on signs and symptoms requiring return to the emergency room. Patient verbalizes agreement and understand this plan. Patient discharged home in stable and improved condition. ED Disposition - Plan for ED Patient: Disposition: Home or Assisted Living Diagnosis: Right buttock pain Instructions: ED Back Pain Acute or Chronic Prescriptions: cycloBENZAPRine HCl [Flexeril] 10 mg PO TID PRN PRN #15 tab PRN Reason: Muscle Spasm Transmission Status: Pending to [facility] Referrals: Cari Nguyen [Primary Care Provider] -
[2019-08-24] MEDS: morphine 8 MG/ML Syringe 6 MG IM (15:49)
[2019-08-24 16:23] VITALS: BP 129/84; PULSE 62; RESP 15; O2SAT 97
== END 2019-08-24 16:24 | disposition home or self-care (01) ==
PROVIDERS: Emergency Provider Emergency Medicine
DX: M54.5 Low back pain (principal); Z87.891 Personal history of nicotine dependence
CPT/HCPCS: 96372; 99282

== ENCOUNTER 2019-09-07 14:59 | Emergency (ER) | payer MEDICAID, SELFPAY ==
[2019-09-07 15:00] VITALS: BP 167/113; PULSE 98; RESP 16; TEMP 36.5; O2SAT 98; BMI 33.5
[2019-09-07] MEDS: 0.9% Normal Saline 1,000 ML 150 ML IV (15:30)
[2019-09-07 15:40] LABS: Absolute Lymphocyte Count 2.14 X10^3/uL (0.83-4.51); Absolute Neutrophil Count 5.6 X10^3/uL (2.0-7.7); Basophil# 0.04 X10^3/uL; Basophil% 0.5 % (0-1); Eosinophil# 0.11 X10^3/uL; Eosinophils% 1.3 % (0-5); Hematocrit 45.3 % (37-47); Hemoglobin 14.7 g/dL (12.0-15.0); Lymphocyte # 2.14 X10^3/ul (4.0); Lymphocyte % 24.7 % (19-41); Mean Corp Hgb Conc 32.5 g/dL (32-36); Mean Corpuscular Hgb 29.1 pg (27.0-32.0); Mean Corpuscular Volume 89.7 fL (81-99); Monocyte# 0.71 X10^3/uL; Monocyte% 8.2 % (0-10); NRBC Flagged by Analyzer 0 % (0-5); Neutrophil % 64.6 % (47-70); Platelet Count 346 K/mm3 (150-450); RBC Distribution Width CV 12.7 % (11.6-14.6); RBC Distribution Width SD 41.3 fl (35.1-43.9); Red Blood Count 5.05 M/mm3 (4.2-5.4); White Blood Count 8.7 K/mm3 (4.4-11.0)
[2019-09-07 15:42] VITALS: BP 157/101; BP 160/94; BP 162/119; PULSE 74; PULSE 78; PULSE 85
[2019-09-07 15:55] LABS: Internal QC Validated? YES +Cl - CLEAR BKGD; Pregnancy, Serum, hCG Quali. NEGATIVE Negative
--- NOTE | 2019-09-07 16:16 | ED.DCSUM_ITS ---
- ER Visit Summary Date of Service: 09/07/19 Chief Complaint: [Vaginal bleeding] History of Present Illness: The patient is a 49 F [does the emergency department vaginal bleeding that started 3 days ago. Patient states that she had not had any bleeding in 244 days until 3 days ago. Patient felt that she was menopausal. She denies any real abdominal discomfort and said she just had some mild cramping yesterday but none today. Patient denies any trauma to her vagina. He denies urinary symptoms. Today she did not feel like she could go to work because she was feeling weak and lightheaded. Patient states that she has been going through about 4-5 bladder pads per day. She did have one large clot she passed the other day but since then is really only been just small clots. Patient has history of anxiety and bipolar disorder.] Physical Examination: HEENT-PERRLA, EOMI. Cranial nerves II through XII grossly intact. TMs clear. Mucous membranes moist. No adenopathy. Cardiovascular-regular rate and rhythm without murmur or ectopy Lungs-clear to auscultation, chest wall stable without crepitus or subcu emphysema Abdomen-normoactive bowel sounds, soft, nontender, no rebound or rigidity, no peritoneal signs. exam-deferred Extremities-intact ?4, normal range of motion, normal pulses, atraumatic] Test Results: [CBC with differential obtained showed a white of 8.7, hemoglobin 14.7, hematocrit 45, platelets 346. hCG was negative. Orthostatic vital signs were negative.] Emergency Department Course and Treatment: [IV line established. Patient was given normal saline at 150 cc an hour.] Treatment Plan: [Patient will be discussed with CHEMICAL CELL CHANGER on-call to assure follow- up.] Disposition: [Discharged home in stable condition] Impression: [Dysfunctional uterine bleeding] This note was generated with [employer] dictation software. It may contain incorrect words, spelling, and punctuation that were not noted in review of the chart prior to signing ED Disposition - Plan for ED Patient: Referrals: Cari Nguyen [Primary Care Provider] -
--- NOTE | 2019-09-07 16:19 | DCINST.ED_ITS ---
ED Disposition - Plan for ED Patient: Instructions: ED Bleed Irregular Vaginal Referrals: [facility],Cari Moore [Primary Care Provider] - Frida Kolb MD [STAFF PHYSICIAN] - 3-5 Days
== END 2019-09-07 17:19 | disposition home or self-care (01) ==
PROVIDERS: Emergency Provider Emergency Medicine
DX: N93.8 Other specified abnormal uterine and vaginal bleeding (principal)
CPT/HCPCS: 84703; 85025; 86850; 86900; 86901; 96360; 96361; 99283; J7030; A4216

== ENCOUNTER 2019-10-18 14:35 | Emergency (ER) | payer MEDICAID, SELFPAY ==
[2019-10-18 14:36] VITALS: BP 158/108; PULSE 93; RESP 18; TEMP 36.6; O2SAT 98; BMI 33.5
--- NOTE | 2019-10-18 15:06 | VDLE_ITS ---
Reason For Study: Pain Procedure LEFT Exam performed portable in ED. GSV is normal. A preliminary report was called and/or faxed CFV is compressible, spontaneous, phasic, to ED. competent, and demonstrates normal augmentation. FV is compressible, spontaneous, phasic, competent and demonstrates normal augmentation. POP V is compressible, spontaneous, phasic, competent and demonstrates normal augmentation. T/P Trunk is compressible. PTV is compressible. LT PerV is compressible. Nonvascularized structure noted in the left popliteal space measuring approximently 1.83 x 2.04 x 3.52 cm. Interpretation Summary There is no evidence of left lower extremity deep vein thrombosis. Left great saphenous vein appears patent and compressible segmentally. Left popliteal cystic structure 1.83 x 2.04 x 3.52 cm consistent with a Gray's cyst. Clinical correlation would be appropriate. Ordering Physician: Artem Chun Referring Physician: Cari Moore [facility] Performed By: Sheryl Wright RVT
--- NOTE | 2019-10-18 16:20 | ED.VISSUMM ---
- ER Visit Summary Date of Service: 10/18/19 Chief Complaint: Left knee pain History of Present Illness: The patient is a 49 F who goes to the [facility]ari [facility]. She has a history of left total knee replacement by Dr. Wilkinson. Reports that approximately 1 hour ago she had the abrupt onset of a pain in the back of her knee. Was a stabbing pain is 7-10 at worst. She is pain-free currently. It is worsened by standing up or moving her toes. Is relieved by rest. She denies any recent trauma. No fall, MVA or change in activity. Physical Examination: Vitals: Stable. Afebrile. General: Well-nourished and well-developed. Head: Normocephalic atraumatic. Neck: Supple, no lymphadenopathy. No JVD. Nontender. Cardiovascular: Regular rate and rhythm. No murmurs. Respiratory: No respiratory distress. Clear to auscultation bilaterally. Abdominal: Soft, nontender, nondistended, normal bowel sounds. No guarding, rebound, or peritoneal signs. Back: Nontender. Extremities: Incision to left knee is well-healed. There is no erythema or warmth to suggest a septic joint. She has no pain with short arc movements. She has mild tenderness palpation in the popliteal fossa. She has no edema distally. She is a 2+ dorsalis pedis pulse. Skin: Normal color, no rash. Neurologic: Alert and oriented ?3. Cranial nerves II through XII are intact. Normal strength and sensation. Psych: Normal affect. Test Results: Left lower extremity Doppler shows no DVT. It does appear to show a ruptured Gray's cyst. Emergency Department Course and Treatment: Patient refused pain medications. She is resting comfortably. Treatment Plan: Patient will be discharged instructions follow-up Dr. Wilkinson in 1 week if not improving. She is instructed on symptomatic management. Return to the emergency department for any worsening symptoms. Disposition: To home in improved and stable condition. Impression: 1. Gray's cyst on the left. This note was generated with [employer] dictation software. It may contain incorrect words, spelling, and punctuation that were not noted in review of the chart prior to signing ED Disposition - Plan for ED Patient: Disposition: Home or Assisted Living Instructions: ED Cyst Gray Referrals: Tl Sanchez,Cari Moore [Primary Care Provider] - 1 Week if not improving
[2019-10-18 16:46] VITALS: BP 142/84; PULSE 87; RESP 17; O2SAT 98
== END 2019-10-18 16:47 | disposition home or self-care (01) ==
PROVIDERS: Emergency Provider Emergency Medicine
DX: M71.22 Synovial cyst of popliteal space [Baker], left knee (principal); Z96.652 Presence of left artificial knee joint; R05 Cough; J44.9 Chronic obstructive pulmonary disease, unspecified
CPT/HCPCS: 93971; 99282

== ENCOUNTER 2019-12-23 12:15 | Emergency (ER) | payer MEDICAID, SELFPAY ==
[2019-12-23 12:16] VITALS: BP 157/114; PULSE 89; RESP 14; TEMP 36.2; O2SAT 99; BMI 74.6
--- NOTE | 2019-12-23 12:22 | ED.VIS.BACK ---
History of Present Illness Chief Complaint: Back Informant: Patient Onset: Weeks - 1 Context: Sudden Onset Injury: Fall Timing: Continuous Quality: Aching Location: Lumbar - R, Buttock - R Current Severity: Moderate Maximum Severity: Moderate Worsened by: improves with: Movement, Bending Relieved by: Remaining Still Narrative: Patient states she has had this discomfort before, she chronically gets it intermittently. This time, 1 week ago, she was walking her dog and it pulled her down to her knees, this jason her in the right low back, exacerbating/causing this recurrent discomfort that has been persistent for the past week. Same pain she has had in the past. Denies any bowel or bladder dysfunction, saddle anesthesia, paresthesias or numbness in her lower extremities or radiation down distal to the buttock. Prior similar symptoms: Yes, With Prior Back Pain - Past Medical History (1) Anxiety disorder Status: Chronic (2) Bipolar disorder Status: Chronic Past Medical History - Allergies and Home Meds Allergies/Adverse Reactions: Allergies latex Allergy (Verified 12/23/19 12:16) Rash [facility] - Surgical History: appendectomy, cholecystectomy, - - Tubal ligation, Smoking Status: Former smoker - Family History Maternal Family History: Family History (Last Updated 04/30/18 @ 11:26 by Aure Butler) Mother Hypertension High cholesterol Father Hypertension Other Cancer Family History: Reports: Hypertension Paternal Family History: Family History (Last Updated 04/30/18 @ 11:26 by Aure Butler) Mother Hypertension High cholesterol Father Hypertension Other Cancer Family History: Reports: Heart Disease, Hypertension Review of Systems General: Denies: Chills, Fever, Sweats Gastrointestinal: Reports: - - no incontinence or retention of bowel/bladder. Denies: Abdominal pain, Nausea, Vomiting, Constipation Musculoskeletal: Reports: Back pain. Denies: Neck pain, Swelling, Extremity Pain Skin: Denies: Rash, Wounds Neurological: Denies: Headache, Weakness, Numbness Physical Exam Vital Signs/Narrative: Vital Signs Temp Pulse Resp BP Pulse Ox 12/23/19 12:16 97.2 F L 89 14 157/114 H 99 Inital Vital Signs reviewed: Yes General: Well nourished, Well developed, Obese, - - NAD Head: Normocephalic, Atraumatic Eyes: Perrl, EOMI Neck: Supple, Nontender Back: Normal Inspection, Paraspinal Tenderness - Right lumbosacral and into buttock, basically surrounding the right SI joint. No step-off or abnormal inspection of the area. Nontender greater trochanter, painless range of motion of the hip joint., Negative SLR - Right, Negative SLR - Left. Negative for: Spinal tenderness, CVA tenderness Extremeties: Nontender, No edema Skin: Normal color, No rash Neuro: Alert, Oriented, Normal Strength, Normal Sensation, Normal DTR - No clonus, toes downgoing bilaterally, Normal Gait Psychological: Normal affect Diagnostic/Tx/Re-eval - Medical Decision Making Reassured patient, she thought that she had a pinched nerve, I doubt this is radicular symptoms. It is probably just musculoskeletal and more likely to be sacroiliac joint dysfunction. She states I usually get a shot here in the ER in the buttock and that helps. Given Toradol and reassured, referred to chiropracty and/or physical therapy. ED Disposition - Plan for ED Patient: Disposition: Home or Assisted Living Diagnosis: Sacroiliac joint pain Instructions: ED LUMBAR SPRAIN/STRAIN, ED Sacroiliitis Referrals: [facility],Cari Moore [Primary Care Provider] - As Needed (and/or chiropractor; may need to visit PCP to get referral to physical therapy, if you want to go that route)
[2019-12-23] MEDS: Ketorolac 60 MG/2 ML Vial IM (12:39)
[2019-12-23 12:46] VITALS: PULSE 87; RESP 17; O2SAT 98
== END 2019-12-23 13:00 | disposition home or self-care (01) ==
PROVIDERS: Emergency Provider Emergency Medicine
DX: M53.3 Sacrococcygeal disorders, not elsewhere classified (principal); E66.9 Obesity, unspecified; F41.9 Anxiety disorder, unspecified; F31.9 Bipolar disorder, unspecified; Z82.49 Family history of ischemic heart disease and other diseases of the circulatory system; Z90.49 Acquired absence of other specified parts of digestive tract; Z91.040 Latex allergy status
CPT/HCPCS: 96372; 99282

== ENCOUNTER → 2020-05-04 13:11 | Outpatient (CLI) | payer MEDICAID, SELFPAY ==
--- NOTE | 2020-05-04 13:20 | RAD_ITS ---
STUDY: X-RAY - LEFT ANKLE REASON FOR EXAM: Female, 50 years old. PAIN AND SWELLING ANTERIOR HEEL, NO KNOWN INJURY TECHNIQUE: 3 view(s) of the ankle. COMPARISON: None. FINDINGS: Normal visualized distal tibia and fibula. Normal medial and lateral malleoli. There are degenerative changes of the tibiotalar joint. Moderate sized calcaneal spur present. There are degenerative changes of the dorsal midfoot. The visualized subtalar, talonavicular, calcaneocuboid and tarsal articulations are normal. There is diffuse soft tissue swelling. RAD/Ankle 2 Views IMPRESSION: Diffuse soft tissue swelling without Electronically Signed: Eran Posadas MD ([place]oks) at 14:26 EST , Service support ,
== END ==
PROVIDERS: Visit Provider Physician Assistant
DX: T14.8XXA Other injury of unspecified body region, initial encounter (principal)
CPT/HCPCS: 73600

== ENCOUNTER 2020-06-22 16:08 | Emergency (ER) | payer MEDICAID, SELFPAY ==
[2020-06-22 16:09] VITALS: BP 172/107; PULSE 113; RESP 14; TEMP 36.3; O2SAT 97; BMI 32.2
--- NOTE | 2020-06-22 16:25 | ED.DCSUM_ITS ---
History of Present Illness Chief Complaint: Abd Pain Informant: Patient Onset: Today, Hours Context: Sudden Onset Timing: Continuous Quality: Pain Location: Periumbilical Current Severity: Mild Maximum Severity: Severe Worsened by: Nothing Relieved by: Nothing Associated Symptoms: Nothing Narrative: This 50-year-old woman with history of diverticulosis and diverticulitis who presents with abrupt onset of periumbilical pain. She states she had similar presentation when diagnosed with diverticulitis. She denies fever, chills night sweats. She denies nausea or vomiting. She does have chronic diarrhea status post cholecystectomy. She denies blood or mucus in her diarrhea. She denies HEENT, cardiac, respiratory or symptoms. She denies rash. She denies allergies to antibiotics. Prior similar symptoms: Yes - Colitis Recent Illness/Hospitalization: No - Past Medical History (1) Diverticulitis Status: Acute (2) Anxiety disorder Status: Chronic (3) Bipolar disorder Status: Chronic Past Medical History - Allergies and Home Meds Allergies/Adverse Reactions: Allergies latex Allergy (Verified 06/22/20 16:11) Rash [facility] - Prior records reviewed: Yes Surgical History: appendectomy, cholecystectomy, - - Tubal ligation, Lives: With Family Smoking Status: Former smoker Alcohol: Rare Drugs: None - Family History Maternal Family History: Family History (Last Reviewed 05/04/20 @ 12:06 by Stella Sibley) Mother Hypertension High cholesterol Father Hypertension Other Cancer Family History: Reports: Hypertension Paternal Family History: Family History (Last Reviewed 05/04/20 @ 12:06 by Stella Sibley) Mother Hypertension High cholesterol Father Hypertension Other Cancer Family History: Reports: Heart Disease, Hypertension Review of Systems General: Denies: Chills, Fever, Malaise, Subjective, Sweats Eyes: Denies: Visual changes - bilaterally, Blurred Vision - bilaterally ENT: Denies: Rhinorrhea, Sore throat Cardiovascular: Denies: Chest pain, Palpitations Respiratory: Denies: Dyspnea, Cough, Dyspnea on exertion Gastrointestinal: Reports: Abdominal pain, Diarrhea. Denies: Nausea, Vomiting, Constipation, Melena, Hematochezia Genitourinary: Denies: Dysuria, Hematuria, Frequency Musculoskeletal: Denies: Myalgias, Arthralgias, Neck pain, Back pain Skin: Denies: Rash, Wounds Neurological: Denies: Headache, Weakness, Parasthesia Endocrine: Denies: Polyuria, Polydipsia Hematologic: Denies: Easy bruising, Easy bleeding Physical Exam Vital Signs/Narrative: Vital Signs Temp Pulse Resp BP Pulse Ox 06/22/20 16:09 97.4 F L 113 H 14 172/107 H 97 Inital Vital Signs reviewed: Yes General: Well nourished, Well developed, Obese Head: Normocephalic, Atraumatic Eyes: Perrl, EOMI. Negative for: Pale conjunctiva, Scleral icterus ENT: Moist mucous membranes, No rhinorrhea Neck: Supple, Nontender, No lymphadenopathy, No JVD Cardiovascular: Regular rhythm, No murmurs, Normal S1, Normal S2, Tachycardia Respiratory: No distress, CTA bilaterally, Chest nontender Abdomen: Soft, Nondistended, No masses, Tender - Tenderness left lower quadrant.. Negative for: Nontender, Normal bowel sounds, Guarding, Rebound tenderness Rectal: Deferred Back: Nontender, Normal Inspection Extremities: Nontender, No edema Skin: Normal color, No Trauma, Rash - Circular rash noted on the abdomen with delayed capillary refill.. Negative for: No rash, Cyanosis, Diaphoresis, Jaundice Neurological: Alert, Oriented x3, Cranial nerves II-XII grossly intact, Normal Strength, Normal Sensation, Normal Gait Psychological: Normal affect Diagnostic/Tx/Re-eval Laboratory Results 06/22/20 06/22/20 06/22/20 16:20 16:25 16:34 WBC 8.0 RBC 5.51 H Hgb 16.1 H Hct 49.3 H MCV 89.5 MCH 29.2 MCHC 32.7 RDW Std Deviation 40.7 RDW Coeff of Nusrat 12.5 Plt Count 378 MPV 9.0 Immature Gran % (Auto) 0.400 Neut % (Auto) 58.3 Lymph % (Auto) 32.9 Richardson % (Auto) 6.3 Eos % (Auto) 1.5 Baso % (Auto) 0.6 Absolute Neuts (auto) 4.7 Absolute Lymphs (auto) 2.63 Nucleated RBC % 0 Sodium 139 Potassium 4.3 Chloride 105 Carbon Dioxide 28.0 Anion Gap 6 BUN 16 Creatinine 0.90 Estim Creat Clear Calc 59.80 Est GFR (MDRD) Af Amer 85 Est GFR (MDRD) Non-Af 71 BUN/Creatinine Ratio 17.7 Glucose 165 H Lactic Acid 1.8 Calcium 9.5 Unremarkable. Patient's cap refill is now normal after 1 L of normal saline on reexamination at 1742. Since she hurts in the left lower quadrant and has had diverticulitis in the past we will treat for diverticulitis. - Medical Decision Making Prior history of diverticulitis and reported diarrhea with tenderness to left lower quadrant suspect patient has diverticulitis. Because she has a look reticular rash with delayed cap refill CBC, BMP and lactate was ordered. Since she is tachycardic she received a fluid bolus. ED Disposition - Plan for ED Patient: Disposition: Home or Assisted Living Diagnosis: Diverticulitis Instructions: ED Diverticulitis Prescriptions: Amox/Clavulanate Tablet [Augmentin Tablet] 875 mg PO Q12H #20 tab Transmission Status: Pending to [facility] Referrals: [facility] Moore [Primary Care Provider] - 3-5 Days if not improving
[2020-06-22 16:30] LABS: Absolute Lymphocyte Count 2.63 X10^3/uL (0.83-4.51); Absolute Neutrophil Count 4.7 X10^3/uL (2.0-7.7); Basophil# 0.05 X10^3/uL; Basophil% 0.6 % (0-1); Eosinophil# 0.12 X10^3/uL; Eosinophils% 1.5 % (0-5); Hematocrit 49.3 % (37-47); Hemoglobin 16.1 g/dL (12.0-15.0); Lymphocyte # 2.63 X10^3/ul (4.0); Lymphocyte % 32.9 % (19-41); Mean Corp Hgb Conc 32.7 g/dL (32-36); Mean Corpuscular Hgb 29.2 pg (27.0-32.0); Mean Corpuscular Volume 89.5 fL (81-99); Monocyte% 6.3 % (0-10); NRBC Flagged by Analyzer 0 % (0-5); Neutrophil # 4.66 X10^3/uL (2.7-7.7); Neutrophil % 58.3 % (47-70); Platelet Count 378 K/mm3 (150-450); RBC Distribution Width CV 12.5 % (11.6-14.6); RBC Distribution Width SD 40.7 fl (35.1-43.9); Red Blood Count 5.51 M/mm3 (4.2-5.4)
[2020-06-22] MEDS: 0.9% Normal Saline 1,000 ML 1000 ML IV (16:46)
[2020-06-22 16:51] LABS: Anion Gap 6 (5-15); BUN 16 mg/dL (7-18); BUN/Creat Ratio 17.7 RATIO (10-20); Calcium,Total 9.5 mg/dL (8.5-10.1); Chloride 105 mmol/L (98-107); EST Glomerular Filtration Rate 71 mL/min (>60); Est Glom Filt Rate - Afr Amer 85 mL/min (>60); Glucose 165 mg/dL (74-106); Potassium 4.3 mmol/L (3.5-5.1); Sodium Level 139 mmol/L (136-145)
[2020-06-22 17:13] LABS: Lactic Acid 1.8 mmol/L (0.4-1.9)
[2020-06-22] MEDS: Amox/Clavulanate 875 MG Tablet PO (18:03)
[2020-06-22 18:04] VITALS: BP 124/77; PULSE 62; RESP 15; O2SAT 98
== END 2020-06-22 18:05 | disposition home or self-care (01) ==
PROVIDERS: Emergency Provider Emergency Medicine
DX: K57.92 Diverticulitis of intestine, part unspecified, without perforation or abscess without bleeding (principal); F31.9 Bipolar disorder, unspecified; Z82.49 Family history of ischemic heart disease and other diseases of the circulatory system; Z83.49 Family history of other endocrine, nutritional and metabolic diseases; Z87.891 Personal history of nicotine dependence; Z90.49 Acquired absence of other specified parts of digestive tract; Z91.040 Latex allergy status; E66.9 Obesity, unspecified; F41.9 Anxiety disorder, unspecified
CPT/HCPCS: 80048; 83605; 85025; 96360; 99284; J7030; A4216

== ENCOUNTER 2020-10-18 18:20 | Emergency (ER) | payer MEDICAID, SELFPAY ==
[2020-10-18 18:21] VITALS: BP 159/104; PULSE 78; RESP 15; TEMP 36.4; O2SAT 99; BMI 32.0
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
[2020-10-18] MEDS: Ondansetron 8 MG Tablet PO (19:01)
[2020-10-18] MEDS: morphine 10 MG/ML Syringe IM (19:02)
[2020-10-18] MEDS: Ketorolac 60 MG/2 ML Vial IM (19:02)
[2020-10-18 19:07] VITALS: RESP 16
== END 2020-10-18 19:54 | disposition home or self-care (01) ==
LOC: ED 18:57
PROVIDERS: Emergency Provider Emergency Medicine
DX: M54.32 Sciatica, left side (principal); F17.200 Nicotine dependence, unspecified, uncomplicated; Z90.49 Acquired absence of other specified parts of digestive tract; Z96.659 Presence of unspecified artificial knee joint; Z98.51 Tubal ligation status; F31.9 Bipolar disorder, unspecified; I10 Essential (primary) hypertension; J45.909 Unspecified asthma, uncomplicated; F41.9 Anxiety disorder, unspecified
CPT/HCPCS: 99282

== ENCOUNTER 2020-11-07 22:42 | Emergency (ER) | payer MEDICAID, SELFPAY ==
[2020-11-07 22:44] VITALS: BP 159/112; PULSE 120; RESP 18; TEMP 36.1; O2SAT 99; BMI 36.8
--- NOTE | 2020-11-07 23:01 | EDS_ITS ---
HPI History of Present Illness Chief Complaint: Bite Informant: patient Narrative Narrative: Patient is a 50-year-old female with history of MRSA presenting with redness and pain of her skin behind her left eye. Patient states she was when she woke up this morning. She states she is a carrier of staph and wanted to catch it before this got worse. She denies any associated fever or systemic symptoms. She denies any other complaints at this time. Patient denies any injuries or bites to the area. PFSH PFS Medical History (Updated 11/07/20 @ 23:[address] Alanna Wheeler DO) Abdominal pain, left lower quadrant Anxiety disorder Arthritis Asthma Bipolar disorder HTN (hypertension) Incontinence Knee pain SOB (shortness of breath) Home Medications cephalexin 500 mg PO Q6 #40 cap 11/07/20 [Rx Last Taken Unknown] Allergy/AdvReac Type Severity Reaction Status Date / Time latex Allergy Rash Verified 11/07/20 22:44 Family History Mother Hypertension High cholesterol Father Hypertension Other Cancer Surgical History History of appendectomy History of History of colectomy History of laparoscopic cholecystectomy History of total knee replacement History of tubal ligation Social History Smoking Status: Former smoker alcohol intake: never substance use type: does not use ROS ROS ED Constitutional Constitutional ED: Denies chills or fever(s) Eyes Eyes: Denies change in vision ENT ENT ED: Denies sore throat Cardiovascular Cardiovascular: Denies chest pain Respiratory/Chest Respiratory/Chest: Denies dyspnea Gastrointestinal Gastrointestinal: Denies abdominal pain or vomiting Musculoskeletal Musculoskeletal: Denies arthralgias or myalgias Integumentary Reports rash Neurologic Neurologic: Denies headache(s) or weakness EXAM Physical Exam Const Vital Signs: 11/07/20 22:44 11/07/20 23:23 Temperature 96.9 F L Temperature Source Temporal Pulse Rate 120 H 111 H Respiratory Rate 18 16 Blood Pressure 159/112 H Blood Pressure Mean 127 Pulse Ox 99 98 Oxygen Delivery Method Room Air Positive well nourished and well developed General Appearance ED: well developed Eyes PERRL and EOMs intact bilaterally Neck supple Chest Wall inspection of chest normal Resp normal respiratory effort and clear to auscultation bilaterally Cardio regular rate, regular rhythm and no murmurs GI non-distended Extremity normal to inspection General Extremety ED: Negative for edema or tenderness General Extremity: Negative for edema Neuro oriented x3 Sensorium / Orientation: alert Psych mental status grossly normal Skin Skin Narrative: 0.5 cm of 0.5 cm circumferential area of erythema with a central open area. No sustained fluctuance, drainage or induration. MDM MDM MDM Narrative Medical decision making narrative: Patient evaluated for 1 day of a red bump on her posterior left thigh that is painful. She appears nontoxic in no acute distress. No surrounding crepitus. Is possibly an early abscess/cellulitis. I doubt amenable to drainage at this time. Patient counseled return precautions. She is agreeable to splenic care. Discharged home in stable condition. Discharge Plan Triage Chief Complaint: Bite ED Provider: Alanna Wheeler Dx/Rx/DC Orders Clinical Impression: Abscess Instructions: ED Abscess Antibiotic Treatment Only Prescriptions: New cephalexin 500 mg capsule 500 mg PO Q6 Qty: 40 RF: 0 Primary Care Provider: [facility] Cari Tong Referrals: [facility] Cari Tong [Primary Care Provider] - Disposition Disposition: Home, Self Care Discharge Date/Time: 11/07/20 23:24
[2020-11-07] MEDS: Cephalexin 250 MG Capsule 500 MG PO (23:21)
[2020-11-07 23:23] VITALS: PULSE 111; RESP 16; O2SAT 98
== END 2020-11-07 23:24 | disposition home or self-care (01) ==
PROVIDERS: Emergency Provider Emergency Medicine
DX: L02.416 Cutaneous abscess of left lower limb (principal); Z87.891 Personal history of nicotine dependence; Z86.14 Personal history of Methicillin resistant Staphylococcus aureus infection; F31.9 Bipolar disorder, unspecified; F41.9 Anxiety disorder, unspecified; I10 Essential (primary) hypertension; J45.909 Unspecified asthma, uncomplicated; M19.90 Unspecified osteoarthritis, unspecified site
CPT/HCPCS: 99282

== ENCOUNTER 2021-03-14 22:10 | Emergency (ER) | payer MEDICAID, SELFPAY ==
[2021-03-14 22:11] VITALS: BP 147/108; PULSE 105; RESP 16; TEMP 37.1; O2SAT 98; BMI 33.8
--- NOTE | 2021-03-14 22:50 | ED.VIS.LOWEX ---
HPI History of Present Illness HPI Narrative: Presents with right foot puncture prior to arrival from a toothpick. Reports jumped off the bed when puncture occurred. She is wearing slippers. States her brother pulled out with pliers. Tetanus unknown. Patient does not take any daily medications. No anticoagulants. States when she was 14 had a straight needle that broke in her foot. Chief Complaint: Lower Extremity Injury Informant: patient Narrative Tetanus Immunization: Unknown Prior similar symptoms: Yes PFSH PFSH Medical History (Updated 03/14/21 @ 23:[address] Tremayne Garzon DO) Abdominal pain, left lower quadrant Anxiety disorder Arthritis Asthma Bipolar disorder HTN (hypertension) Incontinence Knee pain SOB (shortness of breath) Home Medications NK 03/14/21 [History Last Taken Unknown] Allergy/AdvReac Type Severity Reaction Status Date / Time latex Allergy Rash Verified 11/07/20 22:44 Family History Mother Hypertension High cholesterol Father Hypertension Other Cancer Surgical History History of appendectomy History of History of colectomy History of laparoscopic cholecystectomy History of total knee replacement History of tubal ligation Social History Smoking Status: Former smoker alcohol intake: never substance use type: does not use ROS ROS ED Constitutional Constitutional ED: Denies chills, fever(s) or sweats Eyes Eyes: Denies change in vision ENT ENT ED: Denies dysphagia or sore throat Cardiovascular Cardiovascular: Denies chest pain, leg edema, palpitations or racing heartbeat Respiratory/Chest Respiratory/Chest: Denies cough, dyspnea or dyspnea on exertion Gastrointestinal Gastrointestinal: Denies abdominal pain, diarrhea, nausea or vomiting Genitourinary Genitourinary ED: Denies dysuria, hematuria or urinary frequency Musculoskeletal Musculoskeletal: Denies back pain, extremity pain or neck pain Integumentary Reports other Details: Puncture wound right foot ; Denies rash or wounds Neurologic Neurologic: Denies headache(s), paresthesias or weakness EXAM Physical Exam Const Vital Signs: 03/14/21 22:11 Temperature 98.7 F Temperature Source Temporal Pulse Rate 105 H Respiratory Rate 16 Blood Pressure 147/108 H Blood Pressure Mean 121 Pulse Ox 98 Oxygen Delivery Method Room Air Positive well nourished and well developed General Appearance ED: well developed and NAD HEENT Reports moist mucous membranes normocephalic and atraumatic Eyes PERRL, EOMs intact bilaterally and conjunctivae normal General Eye ED: Yes normal appearance of both eyes Neck no lymphadenopathy and supple General: Negative for tenderness Chest Wall Chest: Negative for tenderness Resp normal respiratory effort and normal air movement Effort and Inspection: symmetric chest movement; Negative for respiratory distress Cardio regular rate, regular rhythm and no murmurs Peripheral Pulses: pulses 2+ throughout GI normal to inspection, nondistended, normoactive bowel sounds and non-tender Palpation: Negative for guarding or rebound tenderness present Back/Spine no CVA tenderness and no thoracic nor lumbar tenderness Extremity Extremity Narrative: Right lower extremity: Plantar foot examination small puncture noted on the plantar aspect laterally near the heel, dry blood noted. Nontender to palpation. General Extremety ED: Negative for edema or tenderness General Extremity: Negative for edema Neuro oriented x3 and no sensory deficits noted Sensorium / Orientation: awake and alert Skin no rashes or lesions noted Skin Narrative: See above MDM MDM MDM Narrative Medical decision making narrative: Patient's tetanus shot updated. Three-view right foot x-ray reviewed by myself and read by radiology no radiopaque foreign bodies. Closer evaluation small puncture. Nontender. Patient had a toothpick object, pointed and she marked was pulled out. Discussed with patient monitoring for signs of infection. Wound care discussed. All questions were answered. Patient is being discharged under pandemic conditions under declared global, national and state disaster activation, with limited medical resources. Patient and community understands this. Results discussed in layman's terms to the patient satisfaction. All questions answered in layman's terms. Patient understands importance of follow-up care as directed. Patient has been instructed to return to the ED immediately if new symptoms, problems, or questions occur. We mutually agree with the plan of disposition. The patient understand that they may call or return with any questions or concerns at any time. Radiography Diagnostic Testing: Clinical Impression(s) from Imaging Studies Foot X-Ray 03/14/21 22:53 IMPRESSION: 1. No radiopaque foreign body or acute fracture Electronically Signed: Yariel Lee MD at 23:46 EST , Service support , Discharge Plan Triage Chief Complaint: Lower Extremity Injury ED Provider: Tremayne Garzon Dx/Rx/DC Orders Clinical Impression: Puncture wound of foot, right, Tetanus toxoid vaccination administered at current visit Instructions: ED Puncture Wound (Foot) Prescriptions: No Action NK RF: 0 Primary Care Provider: Care Physician,No Primary Referrals: Ora Gil MD [STAFF PHYSICIAN] - 1 Week if not improving Care Physician,No Primary [Primary Care Provider] - Disposition Disposition: Home, Self Care Discharge Date/Time: 03/14/21 23:41
--- NOTE | 2021-03-14 22:53 | RAD_ITS ---
STUDY: X-RAY - RIGHT FOOT CLINICAL: Female, 51 years old. pt states stepped onto toothpick with right foot near base of 5th metatarsal on plantar surface, pain to right foot near puncture, pt states removed toothpick at home TECHNIQUE: 3 view(s) of the foot. COMPARISON: None. FINDINGS: No visualized radiopaque foreign body. A moderate size plantar calcaneal spur is present. Corticated ossicles and cortical irregularity noted around the malleoli likely due to old trauma. A small intraosseous cyst is seen in the distal one third tibial shaft. Additional arthritic changes are present throughout the ankle and foot. No visualized fractures. Normal talus, calcaneus, and tarsal bones. Normal visualized subtalar, talonavicular, calcaneocuboid, tarsal and tarsometatarsal articulations. Normal metatarsi. Normal metatarsophalangeal joint of the great toe. Normal tibial and fibular sesamoid bones. Normal interphalangeal joint of the great toe. Normal phalanges of the great toe. Normal second through fifth metatarsophalangeal joints. Normal interphalangeal joints and phalanges of the lesser toes. The soft tissue structures are unremarkable. RAD/Foot min 3 Views IMPRESSION: 1. No radiopaque foreign body or acute fracture Electronically Signed: Yariel Lee MD at 23:46 EST , Service support ,
[2021-03-14] MEDS: Diphth,Pertuss(Acell),Tet Vac 0.5 ML Vial IM (23:00)
== END 2021-03-14 23:41 | disposition home or self-care (01) ==
PROVIDERS: Emergency Provider Emergency Medicine
DX: S91.331A Puncture wound without foreign body, right foot, initial encounter (principal); W06.XXXA Fall from bed, initial encounter; Z23 Encounter for immunization; Z87.891 Personal history of nicotine dependence; F31.9 Bipolar disorder, unspecified; F41.9 Anxiety disorder, unspecified; I10 Essential (primary) hypertension; J45.909 Unspecified asthma, uncomplicated; M19.90 Unspecified osteoarthritis, unspecified site
CPT/HCPCS: 73630; 90471; 90715; 99282

== ENCOUNTER 2021-05-11 18:27 | Emergency (ER) | payer MEDICAID, SELFPAY ==
[2021-05-11 18:27] VITALS: BP 161/134; PULSE 97; RESP 20; TEMP 36.3; O2SAT 100; BMI 32.0
--- NOTE | 2021-05-11 18:43 | ED.VIS.LOWEX ---
HPI <BECKIE Delaney - Last Filed: 05/11/21 20:19> History of Present Illness Chief Complaint: Lower Extremity Injury Narrative Narrative: 51-year-old female presents with left ankle injury. 4 hours ago she slipped on the ice and twisted her ankle. She has been able to ambulate but has some pain with weightbearing. There was no head injury or LOC. She states she has bone spurs in that foot as well. PFSH <BECKIE Delaney - Last Filed: 05/11/21 20:19> [facility] Medical History (Updated 05/11/21 @ 20:18 by BECKIE Delaney) Abdominal pain, left lower quadrant Anxiety disorder Arthritis Asthma Bipolar disorder HTN (hypertension) Incontinence Knee pain SOB (shortness of breath) Home Medications NK 03/14/21 [History Last Taken Unknown] Allergy/AdvReac Type Severity Reaction Status Date / Time latex Allergy Rash Verified 05/11/21 18:27 Family History Mother Hypertension High cholesterol Father Hypertension Other Cancer Surgical History History of appendectomy History of History of colectomy History of laparoscopic cholecystectomy History of total knee replacement History of tubal ligation Social History Smoking Status: Former smoker alcohol intake: never substance use type: does not use ROS <BECKIE Delaney - Last Filed: 05/11/21 20:19> ROS ED ROS Narrative Constitutional: Negative for fever, chills, malaise. Eyes: Negative for visual change. ENT: Negative for sore throat, ear pain, rhinorrhea. CVS: Negative for palpitations, chest pain, syncope. Respiratory: Negative for shortness of breath, cough, orthopnea. GI: Negative for abdominal pain, nausea, vomiting, diarrhea, constipation, melena, hematochezia. : Negative for dysuria, hematuria or frequency. Neuro: Negative for headache, motor/sensory dysfunction. Skin: Negative for rash, abscess, or wound. Musc: Positive for ankle pain, swelling, trauma. Heme: Negative for easy bruising, bleeding, lymphadenopathy. EXAM <BECKIE Delaney - Last Filed: 05/11/21 20:19> Physical Exam Narrative Exam Narrative: CONST: Patient sitting in no acute distress. EYES: Normal inspection. NECK: Normal inspection. RESP: No respiratory distress, CTAB. CVS: Regular rate and rhythm, no murmur, no gallop. SKIN: Color normal, no rash, warm, dry, intact. EXTREMITIES: Soft tissue swelling and tenderness over left lateral malleolus, no tenderness of the proximal fibula or foot. She also has an enlarged area around her right heel which she states is a chronic bone spur. Full range of motion, normal strength and sensation, 2+ DP pulse. NEURO: Oriented x4. PSYCH: Normal affect. Const Vital Signs: 05/11/21 18:27 05/11/21 20:35 Temperature 97.4 F L Temperature Source Temporal Pulse Rate 97 Respiratory Rate 20 H 14 Blood Pressure 161/134 H Blood Pressure Mean 143 Pulse Ox 100 Oxygen Delivery Method Room Air <Dr. Alisa Bahena MD - Last Filed: 05/11/21 21:41> Physical Exam Const Vital Signs: 05/11/21 18:27 05/11/21 20:35 Temperature 97.4 F L Temperature Source Temporal Pulse Rate 97 Respiratory Rate 20 H 14 Blood Pressure 161/134 H Blood Pressure Mean 143 Pulse Ox 100 Oxygen Delivery Method Room Air MDM <BECKIE Delaney - Last Filed: 05/11/21 20:19> [facility] Narrative Medical decision making narrative: Patient presented with left ankle injury. She appears well nontoxic. Vital signs within normal limits. She has soft tissue swelling and tenderness over the lateral malleolus. No tenderness over the foot and extremity is neurovascularly intact. She also has a chronic large heel bone spur. X-rays negative for fracture dislocation. She was in Aircast and declined crutches and we discussed RICE protocol. She will follow-up with her established human resources executive. She was agreeable with this plan and discharged in stable condition. 1. Left ankle sprain Radiography Diagnostic Testing: Clinical Impression(s) from Imaging Studies Ankle X-Ray 05/11/21 18:45 IMPRESSION: 1. A large plantar calcaneal spur is present. Mild soft tissue swelling seen around the ankle joint and at the Achilles tendon insertion site. Electronically Signed: Yariel Lee MD at 19:51 EST , <Dr. Alisa Bahena MD - Last Filed: 05/11/21 21:41> MDM Radiography Diagnostic Testing: Clinical Impression(s) from Imaging Studies Ankle X-Ray 05/11/21 18:45 IMPRESSION: 1. A large plantar calcaneal spur is present. Mild soft tissue swelling seen around the ankle joint and at the Achilles tendon insertion site. Electronically Signed: Yariel Lee MD at 19:51 EST , Treatment and Re-Evaluation Comments:: Patient seen and evaluated with physician assistant front desk manager. Patient independently interviewed and examined. Patient presents with left ankle injury after twisting it on the ice. She denies any other injury. Physical exam Patient sitting upright in bed no acute distress. Alert and talkative. Head and neck examination unremarkable with no sign of trauma. Heart is regular rate and rhythm. Lung sounds are clear. Abdomen is soft nontender. Left lower extremity examination reveals moderate edema to the lateral malleolus of the left ankle. No overlying skin change. No tenderness of the foot itself. Strong distal pulses and normal cap refill. Left ankle x-rays revealed no evidence of acute fracture. Patient given an Aircast. She will continue supportive care at home. Discharge Plan Triage Chief Complaint: Lower Extremity Injury ED Provider: Naomie Warren Dx/Rx/DC Orders Clinical Impression: Left ankle sprain Instructions: ED Ankle Sprain (Adult) Prescriptions: No Action NK RF: 0 Primary Care Provider: Cari Moore Referrals: Cari Moore [Primary Care Provider] - Activity Restrictions/Additional Instructions: Rest, ice, and elevate your leg. Take tylenol or ibuprofen as needed and follow up with your human resources executive. Disposition Disposition: Home, Self Care Discharge Date/Time: 05/11/21 20:35
--- NOTE | 2021-05-11 18:45 | RAD_ITS ---
STUDY: X-RAY - LEFT ANKLE REASON FOR EXAM: Female, 51 years old. Injury/Pain TECHNIQUE: 4 view(s) of the ankle. COMPARISON: None. FINDINGS: Normal visualized distal tibia and fibula. Normal medial and lateral malleoli. Normal tibiotalar articulation and ankle mortise. Normal visualized talus and calcaneus. A large plantar calcaneal spur is present. Mild soft tissue swelling seen around the ankle joint and at the Achilles tendon insertion site. The visualized subtalar, talonavicular, calcaneocuboid and tarsal articulations are normal. There is no demonstrated fracture. RAD/Ankle min 3 Views IMPRESSION: 1. A large plantar calcaneal spur is present. Mild soft tissue swelling seen around the ankle joint and at the Achilles tendon insertion site. Electronically Signed: Yariel Lee MD at 19:51 EST ,
[2021-05-11 20:35] VITALS: RESP 14
== END 2021-05-11 23:59 | disposition home or self-care (01) ==
PROVIDERS: Emergency Provider Physician Assistant; Visit Provider Physician Assistant
DX: S93.402A Sprain of unspecified ligament of left ankle, initial encounter (principal); Z87.891 Personal history of nicotine dependence; I10 Essential (primary) hypertension; M77.30 Calcaneal spur, unspecified foot; W00.0XXA Fall on same level due to ice and snow, initial encounter
CPT/HCPCS: 73610; 99282

== ENCOUNTER 2021-06-24 12:07 | Emergency (ER) | payer MEDICAID, SELFPAY ==
[2021-06-24 12:07] VITALS: BP 155/108; PULSE 95; RESP 16; TEMP 36.4; O2SAT 96; BMI 38.9
--- NOTE | 2021-06-24 12:15 | EDS_ITS ---
HPI History of Present Illness Chief Complaint: Lower Extremity Injury Detail of Chief Complaint: Pain to left heel Informant: patient Narrative Narrative: Patient presents to the emergency department with pain to her left heel that she noticed yesterday while at work. Patient states she kind of felt a pop in the area and her foot became swollen and had a hard time bearing weight on it secondary to pain. Patient could go to work and stand today so she comes in to get evaluated. She does have history of heel spurs. She denies any falls or direct trauma to the area. [facility] Medical History (Updated 06/24/21 @ 12:[address] Tamara Gonzalez DO) Abdominal pain, left lower quadrant Anxiety disorder Arthritis Asthma Bipolar disorder HTN (hypertension) Incontinence Knee pain SOB (shortness of breath) Home Medications NK 03/14/21 [History Last Taken Unknown] Allergy/AdvReac Type Severity Reaction Status Date / Time latex Allergy Rash Verified 06/24/21 12:09 Family History Mother Hypertension High cholesterol Father Hypertension Other Cancer Surgical History History of appendectomy History of History of colectomy History of laparoscopic cholecystectomy History of total knee replacement History of tubal ligation Social History Smoking Status: Former smoker alcohol intake: never substance use type: does not use ROS ROS ED Constitutional Constitutional ED: Reports systems reviewed and no addt'l complaints, except as documented; Denies body ache(s), change in weight or chills Eyes Eyes: Denies acute decrease in peripheral vision, change in vision, double vision or loss of vision ENT ENT ED: Reports none; Denies ear pain, lip swelling, loss taste/smell, neck pain, otalgia or sore throat Cardiovascular Cardiovascular: Reports none; Denies abdominal pain, chest pain with activity, leg edema, lightheadedness, palpitations, rapid heart rate or syncope Respiratory/Chest Respiratory/Chest: Reports none; Denies change in mental status, dry cough, dyspnea, hemoptysis, shortness of breath at rest or shortness of breath with exertion Gastrointestinal Gastrointestinal: Reports none; Denies abdominal pain, change in stool character, diarrhea, hematemesis, hematochezia, melena, rectal bleeding or vomi ting Genitourinary Genitourinary ED: Reports none; Denies abdominal discomfort, anuria, dysuria, genital pain or polyuria Musculoskeletal Musculoskeletal: Reports none and other Details: Left foot pain ; Denies arthralgias, back pain, difficulty walking, extremity pain, muscle weakness or myalgias Integumentary Reports none; Denies abscess or rash Neurologic Neurologic: Reports none; Denies abnormal gait, confusion, focal weakness, frequent falls, headache(s), loss of vision, numbness, paresthesias, radicular pain, vertigo or weakness Psychiatric Psychiatric: Reports systems reviewed and no addt'l complaints, except as documented and none; Denies behavioral changes, confusion, difficulty concentrating, hallucinations, suicidal ideation, tactile hallucinations or visual hallucinations Endocrine Endocrinology: Denies none, cold intolerance, excessive sweating, fatigue or heat intolerance Hematologic/Lymphatic Hematologic/Lymphatic: Reports none; Denies anemia, easy bleeding or easy bruising Allergic/Immunologic Allergic/Immunologic ED: Denies as per HPI, none, lip swelling, mouth swelling, throat swelling, tongue swelling or hives EXAM Physical Exam Const Vital Signs: 06/24/21 12:07 Temperature 97.5 F L Temperature Source Temporal Pulse Rate 95 Respiratory Rate 16 Blood Pressure 155/108 H Blood Pressure Mean 123 Pulse Ox 96 Oxygen Delivery Method Room Air Positive well nourished and well developed General Appearance ED: well developed and NAD HEENT Reports TM's clear and moist mucous membranes normocephalic and atraumatic; Negative for trauma or tenderness Tympanic Membrane ED: Yes TM's clear Eyes PERRL and EOMs intact bilaterally General Eye ED: Negative for pale conjunctiva or scleral icterus Neck no lymphadenopathy, supple and no JVD General: Negative for tenderness Chest Wall inspection of chest normal and palpation of chest normal Chest: Negative for tenderness Resp normal respiratory effort and clear to auscultation bilaterally Effort and Inspection: Negative for respiratory distress or pain with movement Auscultation: Negative for rhonchi, wheezes or diminished lung sounds Cardio regular rate, regular rhythm, S1 normal heart sound, S2 normal heart sound and no murmurs Peripheral Pulses: pulses 2+ throughout GI normal to inspection, nondistended, normoactive bowel sounds, soft to palpation, non-tender, non-distended and no masses Back/Spine no CVA tenderness and no thoracic nor lumbar tenderness Extremity Extremity Narrative: Left foot-patient has some soft tissue swelling noted over the posterior aspect of the heel which she states is chronic. There are some tenderness to palpation over this area. The Achilles tendon appears to be intact with no defect palpated and normal Chaney's test. Patient neurovascular intact distally. There is no erythema or cellulitis. There is no ecchymosis or bruising. General Extremety ED: Negative for edema General Extremity: Negative for edema Neuro oriented x3, CN's II-XII intact bilaterally, no sensory deficits noted and gait normal Sensorium / Orientation: awake, alert, oriented to person, oriented to place and oriented to time Motor Exam: strength 5/5 throughout and strength abnormal Psych mental status grossly normal Skin no rashes or lesions noted and no wounds MDM MDM Radiography Diagnostic Testing: Three-view x-rays of the left foot obtained interpreted by myself as heel spur with no other acute fractures. Patient did have some soft tissue swelling to the posterior aspect of the calcaneus. Patient also had some reactive bone changes at the insertion of the Achilles tendon. Official report from radiology pending. Discharge Plan Triage Chief Complaint: Lower Extremity Injury ED Provider: Tamara Gonzalez Dx/Rx/DC Orders Clinical Impression: Acute pain of left foot, Heel spur Instructions: ED Foot Sprain, ED Heel Spur Prescriptions: No Action NK RF: 0 Primary Care Provider: [facility] Cari Tong Referrals: Vinnie Jageer DPM [STAFF PHYSICIAN] [facility] - Disposition Disposition: Home, Self Care
--- NOTE | 2021-06-24 12:24 | RAD_ITS ---
STUDY: X-RAY - LEFT FOOT CLINICAL: Female, 51 years old. Pain, pt. states she has a heel spur coming out of her achilles tendon causing pain TECHNIQUE: 3 view(s) of the foot. COMPARISON: Comparison is made with prior examination of 05/11/2021. FINDINGS: There is an enthesophyte involving the posterior superior calcaneus at the site of insertion of the Achilles tendon. Stable plantar spur. Normal visualized subtalar, talonavicular, calcaneocuboid, tarsal and tarsometatarsal articulations. Normal metatarsi. Normal metatarsophalangeal joint of the great toe. Normal tibial and fibular sesamoid bones. Normal interphalangeal joint of the great toe. Normal phalanges of the great toe. Normal second through fifth metatarsophalangeal joints. Normal interphalangeal joints and phalanges of the lesser toes. Soft tissue swelling. RAD/Foot min 3 Views IMPRESSION: Calcaneal spurs. Soft tissue swelling. Electronically Signed: Braden Lyons MD at 12:52 EDT ,
== END 2021-06-24 12:41 | disposition home or self-care (01) ==
PROVIDERS: Emergency Provider Emergency Medicine; Visit Provider Emergency Medicine
DX: M77.32 Calcaneal spur, left foot (principal); Z87.891 Personal history of nicotine dependence
CPT/HCPCS: 73630; 99282

== ENCOUNTER 2021-09-17 15:40 | Emergency (ER) | payer MEDICAID, SELFPAY ==
[2021-09-17 15:40] VITALS: BP 175/90; PULSE 91; RESP 20; TEMP 36.3; BMI 39.4
--- NOTE | 2021-09-17 16:43 | ED.VIS.LOWEX ---
HPI History of Present Illness Chief Complaint: Lower Extremity Injury Narrative Narrative: 51-year-old female presenting with right foot pain. She has a history of calcaneal spurs and has seen podiatry after follow-up in the ER and was told to wear orthotics however she does not wear shoes with heels and the arthritis would not stay in place. She states that these do not help. Patient denies any new injury. She states that she has to walk to work at [employer] today and it is too far for her to walk because her foot hurts. Therefore she obtained a ride to the emergency room by her mother so that she could get a work note because her feet hurt. PFSH [facility] Medical History Abdominal pain, left lower quadrant Anxiety disorder Arthritis Asthma Bipolar disorder HTN (hypertension) Incontinence Knee pain SOB (shortness of breath) Home Medications NK 03/14/21 [History Last Taken Unknown] Allergy/AdvReac Type Severity Reaction Status Date / Time latex Allergy Rash Verified 06/24/21 12:09 Family History Mother Hypertension High cholesterol Father Hypertension Other Cancer Surgical History History of appendectomy History of History of colectomy History of laparoscopic cholecystectomy History of total knee replacement History of tubal ligation Social History Smoking Status: Former smoker alcohol intake: never substance use type: does not use ROS ROS ED Constitutional Constitutional ED: Denies chills or fever(s) Eyes Eyes: Denies change in vision ENT ENT ED: Denies rhinorrhea or sore throat Cardiovascular Cardiovascular: Denies chest pain or palpitations Respiratory/Chest Respiratory/Chest: Denies cough or dyspnea Gastrointestinal Gastrointestinal: Denies abdominal pain or constipation Genitourinary Genitourinary ED: Denies dysuria or hematuria Musculoskeletal Musculoskeletal: Reports other Details: Right foot pain ; Denies arthralgias or back pain Integumentary Denies abscess Neurologic Neurologic: Denies headache(s) or paresthesias Psychiatric Psychiatric: Denies anxiety EXAM Physical Exam Const Vital Signs: 09/17/21 15:40 Temperature 97.4 F L Temperature Source Temporal Pulse Rate 91 Respiratory Rate 20 H Blood Pressure 175/90 H Blood Pressure Mean 118 Positive well nourished General Appearance ED: NAD HEENT normocephalic and atraumatic Eyes PERRL Resp normal respiratory effort Cardio regular rate and regular rhythm Extremity Extremity Narrative: Tenderness palpation over the fat pad of the right foot. No swelling, ecchymosis, deformity. No bony tenderness. Neuro oriented x3 and CN's II-XII intact bilaterally Sensorium / Orientation: alert and oriented to person Motor Exam: strength 5/5 throughout Psych mental status grossly normal Skin no wounds Rashes: no rashes Trauma: Negative for abrasion MDM MDM MDM Narrative Medical decision making narrative: Patient presenting with right foot pain which is a new problem for her. She denies any new injury. She has chronic bilateral foot pain. She has seen podiatry for this and her orthotics do not work. She is requesting a work note because she does not feel she can work today. I do not feel she needs imaging and neither does she. Patient will be given a work note for today and tomorrow. She is to use ice, elevation, compression, and NSAIDs for pain. Impression: 1. Right foot pain Discharge Plan Triage Chief Complaint: Lower Extremity Injury ED Provider: Alcides Bennett Dx/Rx/DC Orders Instructions: ED Foot Sprain Prescriptions: No Action NK Primary Care Provider: Cari Kumari Referrals: Gisel Hurley DPM [STAFF PHYSICIAN] - As soon as possible [facility] Cari Tong [Primary Care Provider] - Disposition Disposition: Home, Self Care
== END 2021-09-17 16:49 | disposition home or self-care (01) ==
LOC: ED 16:40
PROVIDERS: Emergency Provider Student in an Organized Health Care Education/Training Program; Visit Provider Student in an Organized Health Care Education/Training Program
DX: M79.671 Pain in right foot (principal); G89.29 Other chronic pain; M79.672 Pain in left foot; I10 Essential (primary) hypertension; Z87.891 Personal history of nicotine dependence
CPT/HCPCS: 99282

== ENCOUNTER 2021-11-11 10:43 | Emergency (ER) | payer MEDICAID, SELFPAY ==
[2021-11-11 10:44] VITALS: BP 151/96; PULSE 99; RESP 18; TEMP 36.6; O2SAT 99; BMI 32.0
[2021-11-11] MEDS: Naproxen 250 MG Tablet 500 MG PO (11:32)
--- NOTE | 2021-11-11 17:07 | ED.VIS.BACK ---
HPI History of Present Illness Chief Complaint: Back Informant: patient Onset/Context/Timing Onset: Days (4) Context: Gradual Onset Timing: Continuous Quality: Sharp Location: Lumbar and Buttock Worsened by: improves with Movement Relieved by: Nothing Associated Symptoms Associated Symptoms: Negative for Numbness, Tingling, Radiation to Right Leg, Radiation to Left Leg, Fever, Abdominal Pain, Dysuria, Unable to Ambulate, Unable to Transfer, Urinary Retention, Urinary Incontinence, Constipation or Fecal Incontinence Narrative Narrative: Patient presents with back pain that has been getting worse over the last 4 days. Patient states it is over the right lower lumbar area and buttock. Patient states it is worse with movement. Patient states nothing makes it better. Patient describes her pain as sharp. Patient states it has been constant. Patient denies any radiation to her lower leg. Patient denies any numbness or tingling. Patient denies any bowel or bladder changes. Patient denies any saddle anesthesia. [facility] Medical History Abdominal pain, left lower quadrant Anxiety disorder Arthritis Asthma Bipolar disorder HTN (hypertension) Incontinence Knee pain SOB (shortness of breath) Home Medications cyclobenzaprine 10 mg tablet 10 mg PO QHS PRN PRN Muscle Spasm #10 TABLETS 11/11/21 [Rx Last Taken Unknown] naproxen 500 mg tablet 500 mg PO BID PRN #20 tabs 11/11/21 [Rx Last Taken Unknown] Allergy/AdvReac Type Severity Reaction Status Date / Time latex Allergy Rash Verified 11/11/21 10:45 Family History Mother Hypertension High cholesterol Father Hypertension Other Cancer Surgical History History of appendectomy History of History of colectomy History of laparoscopic cholecystectomy History of total knee replacement History of tubal ligation Social History Smoking Status: Former smoker alcohol intake: never substance use type: does not use ROS ROS ED Constitutional Constitutional ED: Denies chills or fever(s) Eyes Eyes: Denies blurry vision or change in vision ENT ENT ED: Denies rhinorrhea or sore throat Cardiovascular Cardiovascular: Denies chest pain or palpitations Respiratory/Chest Respiratory/Chest: Denies cough or dyspnea Gastrointestinal Gastrointestinal: Denies nausea or vomiting Genitourinary Genitourinary ED: Denies dysuria or hematuria Musculoskeletal Musculoskeletal: Reports back pain; Denies neck pain Integumentary Denies abscess or rash Neurologic Neurologic: Denies headache(s) or weakness Allergic/Immunologic Allergic/Immunologic ED: Denies mouth swelling or urticaria EXAM Physical Exam Const Vital Signs: 11/11/21 10:44 Temperature 97.8 F Temperature Source Temporal Pulse Rate 99 Respiratory Rate 18 Blood Pressure 151/96 H Blood Pressure Mean 114 Pulse Ox 99 Oxygen Delivery Method Room Air Positive well nourished, well developed and obese General Appearance ED: well developed and NAD Nutritional Appearance: obese HEENT Reports moist mucous membranes Back/Spine Back/Spine Narrative: There is tenderness and mild spasm of the right lumbar paraspinal muscles. There is no midline tenderness. There is also tenderness over the right gluteal area. There is no bony crepitance or step-off. Range of motion was slightly limited in all motions of the lumbar spine secondary to pain. Strength is 5/5 bilaterally in the lower extremities. Deep tendon reflexes are 2/4 bilaterally in the lower extremities. There are no sensory deficits noted. Straight leg raises were negative bilaterally. Lumbar Spine / Lower Back: ROM limited and straight leg raise negative bilaterally Extremity normal to inspection General Extremety ED: Negative for tenderness Neuro oriented x3 and no sensory deficits noted Sensorium / Orientation: alert Motor Exam: strength 5/5 throughout Deep Tendon Reflexes: Rt Patellar (L4): 2+, Lt Patellar (L4): 2+, Rt Ankle (S1): 2+ and Lt Ankle (S1): 2+ Deep Tendon Reflexes Back: Rt Patellar (L4): 2+, Lt Patellar (L4): 2+, Rt Ankle (S1): 2+ and Lt Ankle (S1): 2+ Psych mental status grossly normal MDM MDM MDM Narrative Medical decision making narrative: Patient was given a dose of Naprosyn here. Patient was given prescriptions for Naprosyn and Flexeril. Patient was instructed use ice to the area. Patient was instructed to do gentle stretching exercises. Patient was instructed to follow-up with her primary care physician in 5 to 7 days. Patient understood and was agreeable with the plan. All questions were answered. Discharge Plan Triage Chief Complaint: Back ED Provider: Schwiger,Braydon Dx/Rx/DC Orders Clinical Impression: Acute lumbosacral myofascial strain, Anxiety disorder, Bipolar disorder Instructions: ED Back Sprain/Strain Prescriptions: New cyclobenzaprine [cyclobenzaprine] 10 mg tablet 10 mg PO QHS PRN PRN (Reason: Muscle Spasm) Qty: 10 0RF naproxen 500 mg tablet 500 mg PO BID PRN Qty: 20 0RF Primary Care Provider: [facility] Cari Tong Referrals: [facility] Cari Tong [Primary Care Provider] - 5-7 Days Disposition Disposition: Home, Self Care Discharge Date/Time: 11/11/21 11:44
== END 2021-11-11 11:44 | disposition home or self-care (01) ==
LOC: ED 11:38
PROVIDERS: Emergency Provider Emergency Medicine; Visit Provider Emergency Medicine
DX: S39.012A Strain of muscle, fascia and tendon of lower back, initial encounter (principal); F31.9 Bipolar disorder, unspecified; Z87.891 Personal history of nicotine dependence; F41.9 Anxiety disorder, unspecified; I10 Essential (primary) hypertension; X58.XXXA Exposure to other specified factors, initial encounter
CPT/HCPCS: 99283

== ENCOUNTER 2021-12-24 11:05 | Emergency (ER) | payer MEDICAID, SELFPAY ==
[2021-12-24 11:07] VITALS: BP 159/93; PULSE 106; RESP 16; TEMP 36.1; O2SAT 97; BMI 37.3
--- NOTE | 2021-12-24 11:31 | EX.ED.VIS.EY ---
HPI History of Present Illness Chief Complaint: Eye Problem Informant: patient Onset/Context/Timing Location: Bilateral Eyes Onset: Days (2-3) Context: Gradual Onset Timing: Continuous Current Severity: Moderate Maximum Severity: Moderate Worsened by: nothing Relieved by: nothing but no tx's attempted Associated Symptoms Associated Symptoms - Eyes: Burning, Crusting, Itching and Redness Visual Changes: bilateral: Blurred vision History of injury: No Visual correction: None Narrative Narrative: Patient states she had some itching mild redness in both of her eyes. Last 2 days, woke up this morning and they were worse along with crusting/discharge bilaterally. No URI symptoms. No recent sick contacts with colds or conjunctivitis. Denies any seasonal allergies that she knows of. No exposure to chemicals. 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 [facility] Medical History (Updated 12/24/21 @ 11:[address] Matthew Belcher MD) Abdominal pain, left lower quadrant Anxiety disorder Arthritis Asthma Bipolar disorder HTN (hypertension) Incontinence Knee pain SOB (shortness of breath) Home Medications cyclobenzaprine 10 mg tablet 10 mg PO QHS PRN PRN Muscle Spasm #10 TABLETS 11/11/21 [Rx Last Taken Unknown] naproxen 500 mg tablet 500 mg PO BID PRN #20 tabs 11/11/21 [Rx Last Taken Unknown] erythromycin 5 mg/gram (0.5 %) eye ointment 1 applic EACH EYE TID 7 days #3.5 grams 12/24/21 [Rx Last Taken Unknown] Allergy/AdvReac Type Severity Reaction Status Date / Time latex Allergy Rash Verified 12/24/21 11:06 Family History Mother Hypertension High cholesterol Father Hypertension Other Cancer Surgical History History of appendectomy History of History of colectomy History of laparoscopic cholecystectomy History of total knee replacement History of tubal ligation Social History Smoking Status: Former smoker alcohol intake: never substance use type: does not use ROS ROS ED Constitutional Constitutional ED: Denies chills or fever(s) Eyes Eyes: Reports as per HPI, blurry vision bilateral (A little when there is discharge in her eyes), erythema and itchy eyes; Denies eye pain ENT ENT ED: Denies ear pain, rhinorrhea or sore throat Respiratory/Chest Respiratory/Chest: Denies cough or dyspnea Gastrointestinal Gastrointestinal: Denies abdominal pain, diarrhea, nausea or vomiting Integumentary Denies abscess or rash Neurologic Neurologic: Denies headache(s), paresthesias or weakness EXAM Physical Exam Const Vital Signs: 12/24/21 11:07 Temperature 96.9 F L Temperature Source Temporal Pulse Rate 106 H Respiratory Rate 16 Blood Pressure 159/93 H Blood Pressure Mean 115 Pulse Ox 97 Oxygen Delivery Method Room Air Positive well nourished and well developed General Appearance ED: well developed and NAD HEENT atraumatic; Negative for tenderness Mouth ED: Yes oral and palatal mucosa normal and Yes lips normal Mouth: oral and palatal mucosa normal and lips normal Eyes PERRL and EOMs intact bilaterally Eyes Narrative: Bilateral bulbar and palpebral conjunctivitis. Small amount of crusted green discharge present medial canthus bilaterally. Lid margins are normal. No tenderness. No chemosis. Iris and cornea normal-appearing grossly. No hyphema or hypopyon. No periorbital swelling. Neck no lymphadenopathy and supple Neuro oriented x3, CN's II-XII intact bilaterally and gait normal Sensorium / Orientation: alert Skin Lesions: no lesions Rashes: no rashes MDM MDM MDM Narrative Medical decision making narrative: Advised the patient that statistics dictate this would be viral the majority of time, it does not appear to be aggressive, however I am not able to rule out the possibility of bacterial conjunctivitis. Will prescribe her ointment for her eyes, with the understanding that if this is viral it will need to go away on its own and the ointment may not help it improve faster but may help her symptoms. Given a work note as well. Discharge Plan Triage Chief Complaint: Eye Problem ED Provider: Matthew Belcher Dx/Rx/DC Orders Clinical Impression: Bilateral conjunctivitis Instructions: ED Conjunctivitis, Nonspecific Prescriptions: New erythromycin 5 mg/gram (0.5 %) ointment 1 applic EACH EYE TID 7 Days Qty: 3.5 0RF No Action cyclobenzaprine [cyclobenzaprine] 10 mg tablet 10 mg PO QHS PRN PRN (Reason: Muscle Spasm) Qty: 10 0RF naproxen 500 mg tablet 500 mg PO BID PRN Qty: 20 0RF Stand Alone Forms: ED Work / School Excuse Primary Care Provider: Medical Cari Tong Referrals: Medical Alycia,Cari Moore [Primary Care Provider] - 1 Week if not improving Disposition Disposition: Home, Self Care
== END 2021-12-24 11:49 | disposition home or self-care (01) ==
LOC: ED 11:41
PROVIDERS: Emergency Provider Emergency Medicine; Visit Provider Emergency Medicine
DX: H10.9 Unspecified conjunctivitis (principal); I10 Essential (primary) hypertension; Z87.891 Personal history of nicotine dependence
CPT/HCPCS: 99282

== ENCOUNTER 2022-01-12 17:27 | Emergency (ER) | payer MEDICAID, SELFPAY ==
[2022-01-12 17:28] VITALS: BP 143/83; PULSE 106; RESP 18; TEMP 36.3; O2SAT 95; BMI 36.2
--- NOTE | 2022-01-12 18:18 | EDS_ITS ---
HPI History of Present Illness Chief Complaint: Hyperglycemia Informant: patient Narrative Narrative: Patient presents due to concern for new onset diabetes. She states she recently had pinkeye and was given eyedrops to use. After this was completed she noted that her vision seemed to be blurry. She went to see an eye doctor who did confirm that she needed glasses, but also raise concern for possible diabetes. She went to urgent care today where her fingerstick glucose was 400 and she was sent to the emergency room. She states in the past she has been told she was borderline diabetic. She has not recently been on steroids. [facility] Medical History (Updated 01/12/22 @ 20:[address] Alisa Bahena MD) Abdominal pain, left lower quadrant Anxiety disorder Arthritis Asthma Bipolar disorder HTN (hypertension) Incontinence Knee pain SOB (shortness of breath) Home Medications blood-glucose meter #1 ea 01/12/22 [Rx Last Taken Unknown] metformin 500 mg tablet 500 mg PO BID #60 tabs 01/12/22 [Rx Last Taken Unknown] Allergy/AdvReac Type Severity Reaction Status Date / Time latex Allergy Rash Verified 01/12/22 17:27 Family History Mother Hypertension High cholesterol Father Hypertension Other Cancer Surgical History History of appendectomy History of History of colectomy History of laparoscopic cholecystectomy History of total knee replacement History of tubal ligation Social History Smoking Status: Former smoker alcohol intake: never substance use type: does not use ROS ROS ED Constitutional Constitutional ED: Denies chills or fever(s) Eyes Eyes: Reports blurry vision; Denies discharge from eye(s) ENT ENT ED: Reports other Details: Dry mouth ; Denies discharge from eye(s), rhinorrhea or sore throat Cardiovascular Cardiovascular: Denies chest pain or palpitations Respiratory/Chest Respiratory/Chest: Denies cough or dyspnea Gastrointestinal Gastrointestinal: Denies abdominal pain, diarrhea, nausea or vomiting Genitourinary Genitourinary ED: Reports urinary frequency; Denies difficulty urinating or dysuria Musculoskeletal Musculoskeletal: Denies back pain or extremity pain Integumentary Denies Abrasions or rash Neurologic Neurologic: Reports headache(s); Denies weakness Psychiatric Psychiatric: Denies anxiety or depression Endocrine Endocrinology: Reports polydipsia and polyuria Allergic/Immunologic Allergic/Immunologic ED: Denies lip swelling or urticaria EXAM Physical Exam Const Vital Signs: 01/12/22 17:28 01/12/22 18:53 Temperature 97.4 F L Temperature Source Temporal Pulse Rate 106 H Respiratory Rate 18 Respiratory Pattern Normal Blood Pressure 143/83 H Blood Pressure Mean 103 Pulse Ox 95 Oxygen Delivery Method Room Air Positive well nourished and well developed General Appearance ED: well developed HEENT Reports normocephalic, head/scalp atraumatic and dry mucous membranes Mouth ED: Yes dry mucous membranes Mouth: dry mucous membranes Eyes PERRL and EOMs intact bilaterally Neck supple Chest Wall inspection of chest normal and palpation of chest normal Resp normal respiratory effort and clear to auscultation bilaterally Cardio regular rate and regular rhythm GI normal to inspection, nondistended, normoactive bowel sounds Palpation: soft Extremity normal to inspection Neuro oriented x3 and no sensory deficits noted Sensorium / Orientation: alert Motor Exam: strength 5/5 throughout Psych mental status grossly normal Skin no rashes or lesions noted MDM MDM MDM Narrative Medical decision making narrative: Patient given IV fluids. Lab work obtained. Lab Data Attestation: I reviewed the patient's lab results. Labs: Laboratory Results - last 24 hr 01/12/22 01/12/22 01/12/22 18:30 18:30 18:30 WBC 9.1 RBC 5.22 Hgb 15.0 Hct 44.3 MCV 84.9 MCH 28.7 MCHC 33.9 RDW Std Deviation 36.3 RDW Coeff of Nusrat 11.9 Plt Count 164 MPV 9.7 Immature Gran % (Auto) 0.700 Neut % (Auto) 74.7 H Lymph % (Auto) 16.4 L [place] % (Auto) 7.5 Eos % (Auto) 0.3 Baso % (Auto) 0.4 Absolute Neuts (auto) 6.8 Absolute Lymphs (auto) 1.49 Nucleated RBC % 0 Sodium 129 L Potassium 3.7 Chloride 95 L Carbon Dioxide 25.0 Anion Gap 9 BUN 10 Creatinine 0.83 Estim Creat Clear Calc 64.13 Est GFR (MDRD) Af Amer 93 Est GFR (MDRD) Non-Af 77 BUN/Creatinine Ratio 12.0 Glucose 477 H* Hemoglobin A1c 12.6 H Calcium 8.9 Total Bilirubin 0.90 Direct Bilirubin 0.22 AST 82 H ALT 76 H Alkaline Phosphatase 150 H Total Protein 7.7 Albumin 2.9 L Globulin 4.8 H POC Glucose 01/12/22 20:10 WBC RBC Hgb Hct MCV MCH MCHC RDW Std Deviation RDW Coeff of Nusrat Plt Count MPV Immature Gran % (Auto) Neut % (Auto) Lymph % (Auto) [place] % (Auto) Eos % (Auto) Baso % (Auto) Absolute Neuts (auto) Absolute Lymphs (auto) Nucleated RBC % Sodium Potassium Chloride Carbon Dioxide Anion Gap BUN Creatinine Estim Creat Clear Calc Est GFR (MDRD) Af Amer Est GFR (MDRD) Non-Af BUN/Creatinine Ratio Glucose Hemoglobin A1c Calcium Total Bilirubin Direct Bilirubin AST ALT Alkaline Phosphatase Total Protein Albumin Globulin POC Glucose 366 H Treatment and Re-Evaluation Narrative: CBC unremarkable. Chemistry studies reveal pseudohyponatremia with a sodium of 129. Glucose is 477. Anion gap and bicarb are normal. Hemoglobin A1c is 12.6. LFTs are slightly elevated, however patient has no abdominal pain. After 1 liter IV fluid repeat blood sugar is 366. Patient will be started on metformin. I will refer her to local primary care physician as she states she has not been seen by anyone in quite some time. I will also write her for glucometer and test strips. Return instructions provided. Addendum: Patient is referred to Dr. Castaneda. I did speak with Dr. Castaneda on the phone to ensure close follow-up. Discharge Plan Triage Chief Complaint: Hyperglycemia ED Provider: Alisa Bahena Dx/Rx/DC Orders Clinical Impression: Diabetes mellitus, new onset Instructions: ED Diabetes- Overview Prescriptions: New metformin 500 mg tablet 500 mg PO BID Qty: 60 0RF (DME) blood-glucose meter Kit See Rx Instructions .Route Qty: 1 0RF Rx Instructions: As directed Primary Care Provider: [facility] Cari Tong Referrals: Maria Elena Castaneda MD [Med Staff - Revenue Collector] [facility] - Disposition Disposition: Home, Self Care
[2022-01-12] MEDS: 0.9% Normal Saline 1,000 ML 1000 ML IV (18:30)
[2022-01-12 18:43] LABS: Absolute Lymphocyte Count 1.49 X10^3/uL (0.83-4.51); Absolute Neutrophil Count 6.8 X10^3/uL (2.0-7.7); Basophil# 0.04 X10^3/uL; Basophil% 0.4 % (0-1); Eosinophil# 0.03 X10^3/uL; Eosinophils% 0.3 % (0-5); Hematocrit 44.3 % (37-47); Lymphocyte # 1.49 X10^3/ul (0.83-4.51); Lymphocyte % 16.4 % (19-41); Mean Corp Hgb Conc 33.9 g/dL (32-36); Mean Corpuscular Hgb 28.7 pg (27.0-32.0); Mean Corpuscular Volume 84.9 fL (81-99); Mean Platelet Vol. 9.7 fl (6.2-12.0); Monocyte# 0.68 X10^3/uL; Monocyte% 7.5 % (0-10); NRBC Flagged by Analyzer 0 % (0-5); Neutrophil # 6.77 X10^3/uL (2.7-7.7); Neutrophil % 74.7 % (47-70); Platelet Count 164 K/mm3 (150-450); RBC Distribution Width CV 11.9 % (11.6-14.6); RBC Distribution Width SD 36.3 fl (35.1-43.9); Red Blood Count 5.22 M/mm3 (4.2-5.4); White Blood Count 9.1 K/mm3 (4.4-11.0)
[2022-01-12 19:12] LABS: BUN 10 mg/dL (7-18); Creatinine, Serum 0.83 mg/dL (0.55-1.02); EST Glomerular Filtration Rate 77 mL/min (>60); Estimated Creatinine Clearance 64.13 ml/min; Glucose 477 mg/dL (74-106)
[2022-01-12 19:13] LABS: AST(SGOT) 82 U/L (15-37); Alanine Aminotransfer ALT/SGPT 76 U/L (13-56); Albumin, Serum 2.9 g/dL (3.2-5.0); Alkaline Phosphatase 150 U/L (45-117); Anion Gap 9 (5-15); Bilirubin, Direct 0.22 mg/dL (0.00-0.30); Calcium,Total 8.9 mg/dL (8.5-10.1); Chloride 95 mmol/L (98-107); Est Glom Filt Rate - Afr Amer 93 mL/min (>60); Globulin 4.8 g/dL (2.2-4.2); Potassium 3.7 mmol/L (3.5-5.1); Protein, Total 7.7 g/dL (6.4-8.2); Sodium Level 129 mmol/L (136-145)
[2022-01-12 19:14] LABS: Hemoglobin A1c 12.6 % (3.8-5.6)
[2022-01-12] MEDS: 0.9% Normal Saline 1,000 ML 250 ML IV (20:03)
[2022-01-12 20:31] LABS: Bedside Glucose 366 mg/dL (74-106)
[2022-01-12] MEDS: metFORMIN HCl 500 MG Tablet PO (21:05)
== END 2022-01-12 21:09 | disposition home or self-care (01) ==
PROVIDERS: Emergency Provider Emergency Medicine; Visit Provider Emergency Medicine
DX: E11.65 Type 2 diabetes mellitus with hyperglycemia (principal); I10 Essential (primary) hypertension; Z87.891 Personal history of nicotine dependence; R35.0 Frequency of micturition; Z79.84 Long term (current) use of oral hypoglycemic drugs
CPT/HCPCS: 80048; 80076; 82962; 83036; 85025; 87811; 99284; J7030; A4216

== ENCOUNTER 2022-07-10 20:17 | Emergency (ER) | payer MEDICAID, SELFPAY ==
[2022-07-10 20:18] VITALS: BP 146/97; PULSE 97; RESP 15; TEMP 36.6; O2SAT 96; BMI 36.7
--- NOTE | 2022-07-10 20:46 | EX.ED.DYSGE1 ---
HPI History of Present Illness Chief Complaint: Hyperglycemia Informant: patient Onset/Context/Timing Onset: Days (3 days) Context: Gradual Onset Narrative Narrative: Patient presents with 3-day history of elevated blood sugars. She was diagnosed with diabetes in January. She is currently on insulin. She states her blood sugars usually run in the 130s for the last 3 days she is been running 205 to 250. She does have a tooth that has been bothering her and she is not sure if infection may have triggered her worsening blood sugars. She is a chronic cough that is unchanged from baseline. No fever or chills. [facility] Medical History (Updated 07/10/22 @ 22:[address] Alisa Bahena MD) Abdominal pain, left lower quadrant Anxiety disorder Arthritis Asthma Bipolar disorder HTN (hypertension) Incontinence Knee pain SOB (shortness of breath) Home Medications blood-glucose meter #1 ea 01/12/22 [Rx Last Taken Unknown] metformin 500 mg tablet 500 mg PO BID #60 tabs 01/12/22 [Rx Last Taken Unknown] penicillin V potassium 500 mg tablet 500 mg PO 4X/DAY #40 tabs 07/10/22 [Rx Last Taken Unknown] Allergy/AdvReac Type Severity Reaction Status Date / Time latex Allergy Rash Verified 07/10/22 20:22 Family History Mother Hypertension High cholesterol Father Hypertension Other Cancer Surgical History History of appendectomy History of History of colectomy History of laparoscopic cholecystectomy History of total knee replacement History of tubal ligation Social History Smoking Status: Former smoker alcohol intake: never substance use type: does not use ROS ROS ED Constitutional Constitutional ED: Denies chills or fever(s) Eyes Eyes: Denies change in vision or discharge from eye(s) ENT ENT ED: Denies discharge from eye(s), rhinorrhea or sore throat Cardiovascular Cardiovascular: Denies chest pain or palpitations Respiratory/Chest Respiratory/Chest: Reports cough; Denies dyspnea Gastrointestinal Gastrointestinal: Reports diarrhea; Denies abdominal pain, nausea or vomiting Genitourinary Genitourinary ED: Denies dysuria Musculoskeletal Musculoskeletal: Denies back pain or extremity pain Integumentary Denies Abrasions or rash Neurologic Neurologic: Denies headache(s) or weakness Psychiatric Psychiatric: Denies anxiety or depression Allergic/Immunologic Allergic/Immunologic ED: Denies lip swelling or urticaria EXAM Physical Exam Const Vital Signs: 07/10/22 20:18 Temperature 97.8 F Temperature Source Temporal Pulse Rate 97 Respiratory Rate 15 Blood Pressure 146/97 H Blood Pressure Mean 113 Pulse Ox 96 Oxygen Delivery Method Room Air Positive well nourished and well developed General Appearance ED: well developed HEENT Reports normocephalic and head/scalp atraumatic HEENT Narrative: Left maxillary gums mildly edematous. There are 2 teeth broken off at the gums. Posterior pharynx is normal. Eyes PERRL and EOMs intact bilaterally Neck supple Chest Wall inspection of chest normal and palpation of chest normal Resp normal respiratory effort and clear to auscultation bilaterally Cardio regular rate and regular rhythm GI normal to inspection, nondistended, normoactive bowel sounds Palpation: soft Extremity normal to inspection Neuro oriented x3 and no sensory deficits noted Sensorium / Orientation: alert Motor Exam: strength 5/5 throughout Psych mental status grossly normal Skin no rashes or lesions noted MDM MDM MDM Narrative Medical decision making narrative: Patient is given a liter IV fluids. Labwork obtained to evaluate for leukocytosis, anemia, and electrolyte derangement. Urinalysis obtained to evaluate for infection/hematuria. Lab Data Attestation: I reviewed the patient's lab results. Labs: Laboratory Results - last 24 hr 07/10/22 07/10/22 07/10/22 21:10 21:10 21:10 WBC 8.3 RBC 5.05 Hgb 15.0 Hct 44.8 MCV 88.7 MCH 29.7 MCHC 33.5 RDW Std Deviation 39.9 RDW Coeff of Nusrat 12.4 Plt Count 295 MPV 8.9 Immature Gran % (Auto) 0.200 Neut % (Auto) 51.3 Lymph % (Auto) 38.5 [place] % (Auto) 7.7 Eos % (Auto) 1.8 Baso % (Auto) 0.5 Absolute Neuts (auto) 4.3 Absolute Lymphs (auto) 3.20 Nucleated RBC % 0 Sodium 141 Potassium 3.5 Chloride 104 Carbon Dioxide 30.0 Anion Gap 7 BUN 15 Creatinine 0.68 Estim Creat Clear Calc 77.41 Est GFR (MDRD) Af Amer 116 Est GFR (MDRD) Non-Af 96 BUN/Creatinine Ratio 21.9 H Glucose 166 H Calcium 9.4 Urine Color Urine Clarity Urine pH Ur Specific [place] Urine Protein Urine Glucose (UA) Urine Ketones Urine Occult Blood Urine Nitrite Urine Bilirubin Urine Urobilinogen Ur Leukocyte Esterase Urine RBC Urine WBC Ur Squamous Epith Cells Urine Bacteria Urine Mucus Acetone Level NEGATIVE 07/10/22 21:15 WBC RBC Hgb Hct MCV MCH MCHC RDW Std Deviation RDW Coeff of Nusrat Plt Count MPV Immature Gran % (Auto) Neut % (Auto) Lymph % (Auto) [place] % (Auto) Eos % (Auto) Baso % (Auto) Absolute Neuts (auto) Absolute Lymphs (auto) Nucleated RBC % Sodium Potassium Chloride Carbon Dioxide Anion Gap BUN Creatinine Estim Creat Clear Calc Est GFR (MDRD) Af Amer Est GFR (MDRD) Non-Af BUN/Creatinine Ratio Glucose Calcium Urine Color Yellow Urine Clarity Clear Urine pH 6.0 Ur Specific [place] 1.025 Urine Protein Negative Urine Glucose (UA) Normal Urine Ketones Negative Urine Occult Blood Negative Urine Nitrite Negative Urine Bilirubin Negative Urine Urobilinogen 1 H Ur Leukocyte Esterase Negative Urine RBC 0 SEEN Urine WBC 0-5 SEEN Ur Squamous Epith Cells 0-5 SEEN Urine Bacteria 0 SEEN Urine Mucus 0 SEEN Acetone Level Treatment and Re-Evaluation :: CBC is unremarkable. Chemistry studies reveal a glucose of 166. Renal function normal. Serum acetone negative. Urinalysis unremarkable with no glucose noted in the urine. Patient will be treated with a course of Pen-Vee K as I suspect her dental infection may be the cause of her increased blood sugars. She is given a dental referral list. Discharge Plan Triage Chief Complaint: Hyperglycemia ED Provider: Alisa Bahena Dx/Rx/DC Orders Clinical Impression: Dental infection, Hyperglycemia Instructions: ED Diabetic Hyperglycemia, ED Dental Abscess Prescriptions: New penicillin V potassium 500 mg tablet 500 mg PO 4X/DAY Qty: 40 0RF No Action metformin 500 mg tablet 500 mg PO BID Qty: 60 0RF (DME) blood-glucose meter Kit See Rx Instructions .Route Qty: 1 0RF Rx Instructions: As directed Primary Care Provider: [facility] Cari Tong [facility] - Disposition Disposition: Home, Self Care
[2022-07-10] MEDS: 0.9% Normal Saline 1,000 ML 1000 ML IV (21:19)
[2022-07-10 21:23] LABS: Absolute Neutrophil Count 4.3 X10^3/uL (2.0-7.7); Basophil# 0.04 X10^3/uL; Basophil% 0.5 % (0-1); Eosinophil# 0.15 X10^3/uL; Eosinophils% 1.8 % (0-5); Hematocrit 44.8 % (37-47); Lymphocyte % 38.5 % (19-41); Mean Corp Hgb Conc 33.5 g/dL (32-36); Mean Corpuscular Hgb 29.7 pg (27.0-32.0); Mean Corpuscular Volume 88.7 fL (81-99); Mean Platelet Vol. 8.9 fl (6.2-12.0); Monocyte# 0.64 X10^3/uL; Monocyte% 7.7 % (0-10); NRBC Flagged by Analyzer 0 % (0-5); Neutrophil # 4.26 X10^3/uL (2.7-7.7); Neutrophil % 51.3 % (47-70); Platelet Count 295 K/mm3 (150-450); RBC Distribution Width CV 12.4 % (11.6-14.6); RBC Distribution Width SD 39.9 fl (35.1-43.9); Red Blood Count 5.05 M/mm3 (4.2-5.4); White Blood Count 8.3 K/mm3 (4.4-11.0)
[2022-07-10 21:28] LABS: Bacteria 0 SEEN /hpf (None Seen); Mucous, Urine 0 SEEN /hpf (<or=2+); Red Blood Cells-Urine 0 SEEN /hpf (0-5)
[2022-07-10 21:30] LABS: Color, Urine Yellow (Yellow); Glucose, Dipstick Normal (Normal); Ketone-Dipstick Negative (Negative); Leukocyte Esterase-Dipstick Negative /ul (Negative); Nitrite-Dipstick Negative (Negative); Occult Blood-Urine Negative /ul (Negative); Protein-Dipstick Negative (Negative); Specific Gravity, Urine 1.025 (1.002-1.030); Urine Bilirubin Dipstick Negative (Negative); Urine Clarity Clear (Clear); Urine Urobilinogen 1 mg/dl (Normal)
[2022-07-10 21:36] LABS: Anion Gap 7 (5-15); BUN 15 mg/dL (7-18); BUN/Creat Ratio 21.9 RATIO (10-20); Calcium,Total 9.4 mg/dL (8.5-10.1); Chloride 104 mmol/L (98-107); Creatinine, Serum 0.68 mg/dL (0.55-1.02); EST Glomerular Filtration Rate 96 mL/min (>60); Est Glom Filt Rate - Afr Amer 116 mL/min (>60); Estimated Creatinine Clearance 77.41 ml/min; Glucose 166 mg/dL (74-106); Potassium 3.5 mmol/L (3.5-5.1); Sodium Level 141 mmol/L (136-145)
[2022-07-10 21:38] LABS: Squamous Epithelial Cells - UA 0-5 SEEN /hpf (5-10); White Blood Cells 0-5 SEEN /hpf (0-5)
[2022-07-10] MEDS: Penicillin Vk 250 MG Tablet 500 MG PO (22:20)
== END 2022-07-10 22:24 | disposition home or self-care (01) ==
PROVIDERS: Emergency Provider Emergency Medicine; Visit Provider Emergency Medicine
DX: E11.65 Type 2 diabetes mellitus with hyperglycemia (principal); E11.638 Type 2 diabetes mellitus with other oral complications; Z79.4 Long term (current) use of insulin; I10 Essential (primary) hypertension; Z87.891 Personal history of nicotine dependence
CPT/HCPCS: 80048; 81001; 82009; 85025; 96360; 99283

== ENCOUNTER → 2022-08-05 | Outpatient (CLI) | payer MEDICAID, SELFPAY ==
[2022-08-05 10:09] LABS: Hematocrit 46.8 % (37-47); Hemoglobin 15.1 g/dL (12.0-15.0); Mean Corp Hgb Conc 32.3 g/dL (32-36); Mean Corpuscular Hgb 29.3 pg (27.0-32.0); Mean Corpuscular Volume 90.9 fL (81-99); Mean Platelet Vol. 9.3 fl (6.2-12.0); Platelet Count 340 K/mm3 (150-450); RBC Distribution Width CV 12.6 % (11.6-14.6); RBC Distribution Width SD 41.9 fl (35.1-43.9); Red Blood Count 5.15 M/mm3 (4.2-5.4); White Blood Count 9.8 K/mm3 (4.4-11.0)
[2022-08-05 10:28] LABS: Hemoglobin A1c 6.7 % (3.8-5.6)
[2022-08-05 10:29] LABS: Microalbumin,Random Urine 20.9 mg/L (NO RANGE EST.)
[2022-08-05 10:49] LABS: ALB/GLOB Ratio 0.9 RATIO (0.9-2.4); AST(SGOT) 24 U/L (15-37); Alanine Aminotransfer ALT/SGPT 33 U/L (13-56); Albumin, Serum 3.5 g/dL (3.2-5.0); Alkaline Phosphatase 114 U/L (45-117); Anion Gap 4 (5-15); BUN 15 mg/dL (7-18); BUN/Creat Ratio 25.5 RATIO (10-20); Calcium,Total 8.9 mg/dL (8.5-10.1); Chloride 108 mmol/L (98-107); Cholesterol 152 mg/dL (200); Creatinine, Serum 0.59 mg/dL (0.55-1.02); EST Glomerular Filtration Rate 115 mL/min (>60); Est Glom Filt Rate - Afr Amer 139 mL/min (>60); Globulin 3.9 g/dL (2.2-4.2); Glucose 125 mg/dL (74-106); High Density Lipoprotein 49 mg/dL; Potassium 3.9 mmol/L (3.5-5.1); Protein, Total 7.4 g/dL (6.4-8.2); Sodium Level 140 mmol/L (136-145); Thyroid Stim Hormone (TSH) 2.17 uIU/mL (0.358-3.74); Triglycerides 149 mg/dL; Very Low Density Lipoprotein 30 mg/dL (5-40)
== END | disposition home or self-care (01) ==
DX: E11.65 Type 2 diabetes mellitus with hyperglycemia (principal); I10 Essential (primary) hypertension
CPT/HCPCS: 36415; 80053; 80061; 82043; 83036; 84443; 85027

== ENCOUNTER 2022-09-14 11:19 | Emergency (ER) | payer MEDICAID, SELFPAY ==
[2022-09-14 11:19] VITALS: BP 137/96; PULSE 97; RESP 18; TEMP 35.8; O2SAT 97; BMI 34.7
--- NOTE | 2022-09-14 11:56 | EKG12_ITS ---
Test Reason : HIGH BLOOD SUGAR Blood Pressure : / mmHG Vent. Rate : 081 BPM Atrial Rate : 081 BPM P-R Int : 162 ms QRS Dur : 074 ms QT Int : 360 ms P-R-T Axes : 059 023 -51 degrees QTc Int : 418 ms Normal sinus rhythm Septal infarct , age undetermined Abnormal ECG Confirmed by CASSIE BETANCOURT, ROXANNE ([id number]), marketing editor TAM WILSON ([id number]) on 09/16/2022 12:15:42 PM Referred By: Confirmed By:ROXANNE MATTHEWS MD
--- NOTE | 2022-09-14 11:58 | EX.ED.DYSGE1 ---
HPI History of Present Illness Chief Complaint: Dizziness Narrative Narrative: 52-year-old female states she was diagnosed with diabetes back in January of last year and is currently taking insulin. She presents to the emergency department today because she states that earlier this morning she felt lightheaded and dizzy, became nauseated and vomited. 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 She complained of diffuse abdominal pain in the epigastric area. Additionally, she states she vomited once without any blood in her emesis. She feels very lightheaded and sick and notes that over the past few days her blood sugars have been running higher than 300. She also states that her blood glucometer stated that there were ketones in her blood. She sees the [facility] clinic but states she is supposed to see someone at [facility] regarding her diabetes. [facility] Medical History (Updated 09/14/22 @ 14:03 by Ronak Rodríguez MD) Abdominal pain, left lower quadrant Anxiety disorder Arthritis Asthma Bipolar disorder HTN (hypertension) Incontinence Knee pain SOB (shortness of breath) Home Medications blood-glucose meter #1 ea 01/12/22 [Rx Last Taken Unknown] metformin 500 mg tablet 500 mg PO BID #60 tabs 01/12/22 [Rx Last Taken Unknown] Allergy/AdvReac Type Severity Reaction Status Date / Time latex Allergy Rash Verified 09/14/22 11:50 Family History Mother Hypertension High cholesterol Father Hypertension Other Cancer Surgical History History of appendectomy History of History of colectomy History of laparoscopic cholecystectomy History of total knee replacement History of tubal ligation Social History Smoking Status: Former smoker alcohol intake: never substance use type: does not use ROS ROS ED ROS Narrative Constitutional: No fever, no chills. HEENT: No sore throat. No neck pain. No loss of vision. No rhinorrhea. Cardiovascular: No chest pain. No palpitations. No pedal edema. Respiratory: No cough, no shortness of breath. Abdominal: Positive upper crampy abdominal pain. Positive nausea and vomiting, no hematemesis. Genitourinary: No dysuria. No hematuria. Musculoskeletal: No myalgias. No arthralgias. Neurologic: No headaches. Positive dizziness and lightheadedness. Skin: No rash. No change in color. Psychiatric: No depression. No anxiety. EXAM Physical Exam Narrative Exam Narrative: Afebrile. Vital signs noted. HEENT: Normocephalic. Atraumatic. PERRL, EOMI. Neck soft and supple. No point tenderness or step off. Cardiovascular: Regular rate and rhythm. No murmurs, rubs, or gallops appreciated. Respiratory: No tachypnea. Lungs clear to auscultation bilaterally. Gastrointestinal: Abdomen soft, nontender, with normoactive bowel sounds. No rebound or guarding. Neurological: Awake. Alert. Nonfocal, nonlateralizing. Skin: No rash. Normal color. No pallor. Musculoskeletal: No pedal edema. Full range of motion extremities. Const Vital Signs: 09/14/22 11:19 09/14/22 11:51 09/14/22 13:26 Temperature 96.4 F L Temperature Source Temporal Pulse Rate 97 84 Respiratory Rate 18 21 H Respiratory Effort Normal Non-Labored Respiratory Pattern Normal Blood Pressure 137/96 H 145/91 H Blood Pressure Mean 109 109 Pulse Ox 97 96 Oxygen Delivery Method Room Air Room Air MDM MDM MDM Narrative Medical decision making narrative: In this patient, given her new onset diabetes last year and insulin use with reported ketones in her blood and elevated blood sugars, concern is for diabetic ketoacidosis. EKG was obtained and interpreted by myself independently which demonstrates normal sinus rhythm at 81 bpm without ectopy or acute ST changes. No STEMI. I reviewed all laboratory work and she has a normal white count of 8.4, hemoglobin normal at 15.0, platelet count normal at 284. Potassium slightly low at 3.4 which can be replaced orally. BUN normal at 18, creatinine normal at 0.8, glucose is elevated at 372 but she has a normal anion gap/low at 4. I do not additionally, her acetone is negative. I do think that she has more of a hyperglycemia. She takes Lantus at night. She was given 6 units of regular insulin subcutaneously here in the emergency department along with a liter of IV fluids. Serum is negative. Urinalysis is negative for infection and ketones. 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 She states she has an appointment with [facility] doctors in early October, few weeks from now. I do feel that she can be discharged safely home with follow-up and I do not feel that she requires admission as she is not in ketoacidosis. She is feeling improved even after meclizine. Return instructions to the emergency department were reviewed. Disposition is discharged home in stable condition. History & Record Review Discussion w/independent historian: Patient Additional record(s) reviewed:: Prior ED visit and Prior labs Lab Data Attestation: I reviewed the patient's lab results. Labs: Laboratory Results - last 24 hr 09/14/22 09/14/22 09/14/22 12:05 12:05 12:05 WBC 8.4 RBC 5.08 Hgb 15.0 Hct 45.5 MCV 89.6 MCH 29.5 MCHC 33.0 RDW Std Deviation 40.0 RDW Coeff of Nusrat 12.2 Plt Count 284 MPV 9.2 Immature Gran % (Auto) 0.800 Neut % (Auto) 48.6 Lymph % (Auto) 36.6 [place] % (Auto) 11.1 H Eos % (Auto) 2.3 Baso % (Auto) 0.6 Absolute Neuts (auto) 4.1 Absolute Lymphs (auto) 3.07 Nucleated RBC % 0 Sodium 137 Potassium 3.4 L Chloride 105 Carbon Dioxide 28.0 Anion Gap 4 L BUN 18 Creatinine 0.80 Estim Creat Clear Calc 65.80 Est GFR (MDRD) Af Amer 97 Est GFR (MDRD) Non-Af 80 BUN/Creatinine Ratio 22.4 H Glucose 372 H Calcium 8.9 Total Bilirubin 0.40 AST 25 ALT 35 Alkaline Phosphatase 109 Total Protein 7.3 Albumin 3.6 Globulin 3.7 Albumin/Globulin Ratio 1.0 Lipase 18 Serum , Qual Urine Color Urine Clarity Urine pH Ur Specific [place] Urine Protein Urine Glucose (UA) Urine Ketones Urine Occult Blood Urine Nitrite Urine Bilirubin Urine Urobilinogen Ur Leukocyte Esterase Urine RBC Urine WBC Ur Squamous Epith Cells Urine Bacteria Urine Mucus Acetone Level NEGATIVE POC Glucose 09/14/22 09/14/22 09/14/22 12:05 12:22 13:16 WBC RBC Hgb Hct MCV MCH MCHC RDW Std Deviation RDW Coeff of Nusrat Plt Count MPV Immature Gran % (Auto) Neut % (Auto) Lymph % (Auto) [place] % (Auto) Eos % (Auto) Baso % (Auto) Absolute Neuts (auto) Absolute Lymphs (auto) Nucleated RBC % Sodium Potassium Chloride Carbon Dioxide Anion Gap BUN Creatinine Estim Creat Clear Calc Est GFR (MDRD) Af Amer Est GFR (MDRD) Non-Af BUN/Creatinine Ratio Glucose Calcium Total Bilirubin AST ALT Alkaline Phosphatase Total Protein Albumin Globulin Albumin/Globulin Ratio Lipase Serum , Qual NEGATIVE Urine Color Urine Clarity Urine pH Ur Specific [place] Urine Protein Urine Glucose (UA) Urine Ketones Urine Occult Blood Urine Nitrite Urine Bilirubin Urine Urobilinogen Ur Leukocyte Esterase Urine RBC Urine WBC Ur Squamous Epith Cells Urine Bacteria Urine Mucus Acetone Level POC Glucose 437 H 360 H 09/14/22 13:45 WBC RBC Hgb Hct MCV MCH MCHC RDW Std Deviation RDW Coeff of Nusrat Plt Count MPV Immature Gran % (Auto) Neut % (Auto) Lymph % (Auto) [place] % (Auto) Eos % (Auto) Baso % (Auto) Absolute Neuts (auto) Absolute Lymphs (auto) Nucleated RBC % Sodium Potassium Chloride Carbon Dioxide Anion Gap BUN Creatinine Estim Creat Clear Calc Est GFR (MDRD) Af Amer Est GFR (MDRD) Non-Af BUN/Creatinine Ratio Glucose Calcium Total Bilirubin AST ALT Alkaline Phosphatase Total Protein Albumin Globulin Albumin/Globulin Ratio Lipase Serum , Qual Urine Color Yellow Urine Clarity Clear Urine pH 6.0 Ur Specific [place] 1.015 Urine Protein Negative Urine Glucose (UA) 1000 H Urine Ketones Negative Urine Occult Blood Negative Urine Nitrite Negative Urine Bilirubin Negative Urine Urobilinogen Normal Ur Leukocyte Esterase Negative Urine RBC 0 SEEN Urine WBC 0 SEEN Ur Squamous Epith Cells 0-5 SEEN Urine Bacteria 0 SEEN Urine Mucus 0 SEEN Acetone Level POC Glucose ABG Data ABG results: ABG 09/14/22 12:22 Specimen Type OLIVIER VBG pH 7.36 VBG pO2 48 H VBG HCO3 26 VBG Total CO2 27 VBG O2 Sat (Calc) 82 H VBG Base Excess 1 POC Mix VBG pCO2 Pt Tmp 45.3 Discharge Plan Triage Chief Complaint: Dizziness ED Provider: Ronak Rodríguez Dx/Rx/DC Orders Clinical Impression: Hyperglycemia, Dizziness Instructions: ED Diabetic Hyperglycemia, ED Dizziness, Uncertain Cause Prescriptions: No Action metformin 500 mg tablet 500 mg PO BID Qty: 60 0RF (DME) blood-glucose meter Kit See Rx Instructions .Route Qty: 1 0RF Rx Instructions: As directed [facility] Care Provider[facility] - As soon as possible Disposition Disposition: Home, Self Care
[2022-09-14 12:18] LABS: Absolute Lymphocyte Count 3.07 X10^3/uL (0.83-4.51); Absolute Neutrophil Count 4.1 X10^3/uL (2.0-7.7); Basophil# 0.05 X10^3/uL; Basophil% 0.6 % (0-1); Eosinophil# 0.19 X10^3/uL; Eosinophils% 2.3 % (0-5); Hematocrit 45.5 % (37-47); Lymphocyte # 3.07 X10^3/ul (0.83-4.51); Lymphocyte % 36.6 % (19-41); Mean Corpuscular Hgb 29.5 pg (27.0-32.0); Mean Corpuscular Volume 89.6 fL (81-99); Mean Platelet Vol. 9.2 fl (6.2-12.0); Monocyte# 0.93 X10^3/uL; Monocyte% 11.1 % (0-10); NRBC Flagged by Analyzer 0 % (0-5); Neutrophil # 4.08 X10^3/uL (2.7-7.7); Neutrophil % 48.6 % (47-70); Platelet Count 284 K/mm3 (150-450); RBC Distribution Width CV 12.2 % (11.6-14.6); Red Blood Count 5.08 M/mm3 (4.2-5.4); White Blood Count 8.4 K/mm3 (4.4-11.0)
[2022-09-14] MEDS: 0.9% Normal Saline 1,000 ML 999 ML IV (12:20)
[2022-09-14 12:24] LABS: Blood Gas Specimen Type VEN; VBG BASE EXCESS 1 mmol/L (-1.0-3.5); VBG Bicarbonate 26 mmol/L (22-26); VBG PO2 48 mmHg (25-40); VBG SO2 82 % (50-70); VBG TCO2 27 mmol/L (23-33); VBG pCO2 45.3 mmHg (41-51); VBG pH 7.36 (7.32-7.42)
[2022-09-14 12:29] LABS: Internal QC Validated? YES +Cl - CLEAR BKGD; Pregnancy, Serum, hCG Quali. NEGATIVE Negative
[2022-09-14 12:31] LABS: AST(SGOT) 25 U/L (15-37); Alanine Aminotransfer ALT/SGPT 35 U/L (13-56); Albumin, Serum 3.6 g/dL (3.2-5.0); Alkaline Phosphatase 109 U/L (45-117); Anion Gap 4 (5-15); BUN 18 mg/dL (7-18); BUN/Creat Ratio 22.4 RATIO (10-20); Calcium,Total 8.9 mg/dL (8.5-10.1); Chloride 105 mmol/L (98-107); EST Glomerular Filtration Rate 80 mL/min (>60); Est Glom Filt Rate - Afr Amer 97 mL/min (>60); Globulin 3.7 g/dL (2.2-4.2); Glucose 372 mg/dL (74-106); Lipase 18 U/L (13-75); Potassium 3.4 mmol/L (3.5-5.1); Protein, Total 7.3 g/dL (6.4-8.2); Sodium Level 137 mmol/L (136-145)
[2022-09-14 12:40] LABS: Bedside Glucose 437 mg/dL (74-106)
[2022-09-14] MEDS: Potassium Chloride Oral Tablet 20 MEQ 40 MEQ PO (12:52)
[2022-09-14 13:26] VITALS: BP 145/91; PULSE 84; RESP 21; O2SAT 96
[2022-09-14] MEDS: Insulin Lispro 100 UNIT/ML INSULN.PEN 6 UNIT SC (13:31)
[2022-09-14 13:34] LABS: Bedside Glucose 360 mg/dL (74-106)
[2022-09-14 13:53] LABS: Bacteria 0 SEEN /hpf (None Seen); Mucous, Urine 0 SEEN /hpf (<or=2+); Red Blood Cells-Urine 0 SEEN /hpf (0-5); White Blood Cells 0 SEEN /hpf (0-5)
[2022-09-14 13:57] LABS: Color, Urine Yellow (Yellow); Glucose, Dipstick 1000 mg/dl (Normal); Ketone-Dipstick Negative (Negative); Leukocyte Esterase-Dipstick Negative /ul (Negative); Nitrite-Dipstick Negative (Negative); Occult Blood-Urine Negative /ul (Negative); Protein-Dipstick Negative (Negative); Specific Gravity, Urine 1.015 (1.002-1.030); Urine Bilirubin Dipstick Negative (Negative); Urine Clarity Clear (Clear); Urine Urobilinogen Normal (Normal)
[2022-09-14 14:08] LABS: Squamous Epithelial Cells - UA 0-5 SEEN /hpf (5-10)
[2022-09-14 14:31] LABS: Bedside Glucose 275 mg/dL (74-106)
[2022-09-14 14:32] VITALS: BP 131/86; PULSE 71; RESP 15; O2SAT 98
== END 2022-09-14 14:32 | disposition home or self-care (01) ==
PROVIDERS: Emergency Provider Emergency Medicine; Visit Provider Emergency Medicine
DX: E11.65 Type 2 diabetes mellitus with hyperglycemia (principal); Z79.4 Long term (current) use of insulin; Z87.891 Personal history of nicotine dependence; R42 Dizziness and giddiness; I10 Essential (primary) hypertension; Z79.84 Long term (current) use of oral hypoglycemic drugs; Z90.49 Acquired absence of other specified parts of digestive tract; Z96.659 Presence of unspecified artificial knee joint
CPT/HCPCS: 80053; 81001; 82009; 82803; 82962; 83690; 84703; 85025; 93005; 96360; 99284; J7030; A4216

== ENCOUNTER → 2022-10-22 | Outpatient (CLI) | payer MEDICAID, SELFPAY ==
[2022-10-22 15:34] LABS: Bacteria 0 SEEN /hpf (None Seen); Red Blood Cells-Urine 0 SEEN /hpf (0-5)
[2022-10-22 16:09] LABS: Color, Urine Yellow (Yellow); Glucose, Dipstick Normal (Normal); Ketone-Dipstick Negative (Negative); Leukocyte Esterase-Dipstick 25 /ul (Negative); Nitrite-Dipstick Negative (Negative); Occult Blood-Urine Negative /ul (Negative); Protein-Dipstick Negative (Negative); Specific Gravity, Urine 1.025 (1.002-1.030); Urine Bilirubin Dipstick Negative (Negative); Urine Clarity Sl. Cloudy (Clear); Urine Urobilinogen Normal (Normal)
[2022-10-22 16:47] LABS: Mucous, Urine 3+ /hpf (<or=2+); Squamous Epithelial Cells - UA 5-10 SEEN /hpf (5-10); White Blood Cells 0-5 SEEN /hpf (0-5)
== END | disposition home or self-care (01) ==
LOC: LAB 15:21
PROVIDERS: Referring Provider Nurse Practitioner Family; Visit Provider Nurse Practitioner Family
DX: R30.0 Dysuria (principal)
CPT/HCPCS: 81001; 87086; 87088

== ENCOUNTER → 2022-12-10 | Outpatient (CLI) | payer MEDICAID, SELFPAY ==
[2022-12-10 12:56] LABS: ALB/GLOB Ratio 0.9 RATIO (0.9-2.4); AST(SGOT) 30 U/L (15-37); Alanine Aminotransfer ALT/SGPT 49 U/L (13-56); Albumin, Serum 3.5 g/dL (3.2-5.0); Alkaline Phosphatase 126 U/L (45-117); Anion Gap 5 (5-15); BUN 15 mg/dL (7-18); BUN/Creat Ratio 25.8 RATIO (10-20); Calcium,Total 9.3 mg/dL (8.5-10.1); Chloride 109 mmol/L (98-107); Creatinine, Serum 0.58 mg/dL (0.55-1.02); EST Glomerular Filtration Rate 116 mL/min (>60); Est Glom Filt Rate - Afr Amer 140 mL/min (>60); Glucose 157 mg/dL (74-106); Potassium 3.8 mmol/L (3.5-5.1); Protein, Total 7.5 g/dL (6.4-8.2); Sodium Level 141 mmol/L (136-145)
== END | disposition home or self-care (01) ==
PROVIDERS: PCP Nurse Practitioner Family; Referring Provider Nurse Practitioner Family; Visit Provider Nurse Practitioner Family
DX: E11.9 Type 2 diabetes mellitus without complications (principal)
CPT/HCPCS: 36415; 80053

== ENCOUNTER 2023-05-30 17:12 | Emergency (ER) | payer MEDICAID, SELFPAY ==
[2023-05-30 17:13] VITALS: BP 154/87; PULSE 82; RESP 14; TEMP 36.3; O2SAT 99; BMI 37.7
--- NOTE | 2023-05-30 17:26 | EX.ED.DYSGE1 ---
HPI History of Present Illness Chief Complaint: General Illness Narrative Narrative: 53-year-old female past medical history of hypertension, diabetes, presents with feeling that she is mildly dehydrated. She states that since last night she felt lightheaded and near syncopal, and is always thirsty. She feels like she has a dry mouth. She endorses urinary frequency, however she is diabetic. No fevers or chills, no cough. She states she is nauseated but has not vomited. She has chronic diarrhea and always has loose stool because she had a cholecystectomy. She states is always hot where she works, at [employer], so she sweats a lot. She states that she feels like she needs IV fluids. [facility] Medical History Abdominal pain, left lower quadrant Anxiety disorder Arthritis Asthma Bipolar disorder HTN (hypertension) Incontinence Knee pain SOB (shortness of breath) Home Medications blood-glucose meter #1 ea 01/12/22 [Rx Last Taken Unknown] blood sugar diagnostic (True Metrix Glucose Test Strip) #100 ea 10/08/22 [Rx Last Taken Unknown] lisinopril 20 mg tablet 20 mg PO DAILY #30 tabs 10/08/22 [Rx Last Taken Unknown] metformin 500 mg tablet 1,000 mg (2 x 500 mg) PO BID #120 tabs 10/08/22 [Rx Last Taken Unknown] compr.stocking,thigh,reg,large #2 ea 12/10/22 [Rx Last Taken Unknown] pen needle, diabetic 32 gauge x 5/32 (BD Ultra-Fine Jennifer Pen Needle) #100 ea 12/10/22 [Rx Last Taken Unknown] Allergy/AdvReac Type Severity Reaction Status Date / Time latex Allergy Rash Verified 05/30/23 17:14 acetaminophen AdvReac Mild Other Verified 05/30/23 17:14 Family History Mother Hypertension High cholesterol Father Hypertension Other Cancer Surgical History History of appendectomy History of History of colectomy History of laparoscopic cholecystectomy History of total knee replacement History of tubal ligation Social History Smoking Status: Former smoker alcohol intake: never substance use type: does not use ROS ROS ED ROS Narrative Constitutional: No fever, no chills. HEENT: No sore throat. No neck pain. No loss of vision. No rhinorrhea. Cardiovascular: No chest pain. No palpitations. No pedal edema. Respiratory: No cough, no shortness of breath. Abdominal: No abdominal pain. Positive nausea. No vomiting. Chronic diarrhea. Genitourinary: No dysuria. No hematuria. Positive urinary frequency. Musculoskeletal: No myalgias. No arthralgias. Neurologic: No headaches. No dizziness. Positive lightheadedness. Skin: No rash. No change in color. Psychiatric: No depression. No anxiety. EXAM Physical Exam Narrative Exam Narrative: Afebrile. Vital signs noted. HEENT: Normocephalic. Atraumatic. PERRL, EOMI. Neck soft and supple. No point tenderness or step off. Cardiovascular: Regular rate and rhythm. No murmurs, rubs, or gallops appreciated. Respiratory: No tachypnea. Lungs clear to auscultation bilaterally. Gastrointestinal: Abdomen soft, nontender, with normoactive bowel sounds. No rebound or guarding. Neurological: Awake. Alert. Nonfocal, nonlateralizing. Skin: No rash. Normal color. No pallor. Musculoskeletal: No pedal edema. Full range of motion extremities. Const Vital Signs: 05/30/23 17:13 05/30/23 17:37 Temperature 97.3 F L Temperature Source Temporal Pulse Rate 82 Respiratory Rate 14 Respiratory Effort Normal Respiratory Pattern Normal Blood Pressure 154/87 H Blood Pressure Mean 109 Pulse Ox 99 Oxygen Delivery Method Room Air MDM MDM MDM Narrative Medical decision making narrative: I reviewed her prior records. In the differential diagnosis is dehydration versus hyperglycemia versus intravascular volume depletion. She is not tachycardic. She will be bolused IV fluids and her urinalysis, CBC, and BMP will be checked. I do not feel she requires any imaging at this time. Patient is postmenopausal so I do not feel that urine hCG is indicated. I reviewed her laboratory work and she is not anemic, her hemoglobin is normal at 13.7, white count normal at 8.3, platelet count normal at 308. Electrolyte panel shows chloride elevated at 111 which I think is nonspecific but sodium normal at 140 with potassium 3.8. BUN normal at 17 with creatinine normal at 0.82. Glucose is elevated at 171, but she has a normal anion gap of 5. I do not feel that she is in diabetic ketoacidosis. Additionally, her urinalysis was reviewed and there is no evidence of infection, no ketones. At this point in time, after her bolus, I feel she can be discharged to follow-up with her primary care provider. I do not feel she requires observation or antibiotics for her urinary frequency. Return instructions to the emergency department were reviewed. Disposition is discharged home, in stable condition. History & Record Review Discussion w/independent historian: Patient Additional record(s) reviewed:: Prior ED visit Lab Data Attestation: I reviewed the patient's lab results. Labs: Laboratory Results - last 24 hr 05/30/23 05/30/23 17:35 18:01 WBC 8.3 RBC 4.74 Hgb 13.7 Hct 41.8 MCV 88.2 MCH 28.9 MCHC 32.8 RDW Std Deviation 38.3 RDW Coeff of Nusrat 11.9 Plt Count 308 MPV 8.9 Immature Gran % (Auto) 0.400 Neut % (Auto) 47.6 Lymph % (Auto) 41.1 H [place] % (Auto) 8.6 Eos % (Auto) 1.8 Baso % (Auto) 0.5 Absolute Neuts (auto) 4.0 Absolute Lymphs (auto) 3.42 Nucleated RBC % 0 Sodium 140 Potassium 3.8 Chloride 111 H Carbon Dioxide 24.0 Anion Gap 5 BUN 17 Creatinine 0.82 Estim Creat Clear Calc 85.48 Est GFR (MDRD) Af Amer 94 Est GFR (MDRD) Non-Af 77 BUN/Creatinine Ratio 20.7 H Glucose 171 H Calcium 9.3 Urine Color Yellow Urine Clarity Clear Urine pH 5.0 Ur Specific [place] 1.020 Urine Protein Negative Urine Glucose (UA) Normal Urine Ketones Negative Urine Occult Blood Negative Urine Nitrite Negative Urine Bilirubin Negative Urine Urobilinogen Normal Ur Leukocyte Esterase Negative Urine RBC 0 SEEN Urine WBC 0-5 SEEN Ur Squamous Epith Cells 0-5 SEEN Urine Bacteria 0 SEEN Urine Mucus 0 SEEN Discharge Plan Triage Chief Complaint: General Illness ED Provider: Ronak Rodríguez Dx/Rx/DC Orders Clinical Impression: Lightheadedness, Urinary frequency Instructions: ED Near-Fainting, Uncertain Cause Prescriptions: No Action (DME) True Metrix Glucose Test Strip Strip See Rx Instructions .Route Qty: 100 5RF Rx Instructions: BID metformin 500 mg tablet 1,000 mg PO BID Qty: 120 5RF lisinopril 20 mg tablet 20 mg PO DAILY Qty: 30 5RF (DME) compr.stocking,thigh,reg,large Misc See Rx Instructions .Route Qty: 2 5RF Rx Instructions: daily (DME) pen needle, diabetic [BD Ultra-Fine Jennifer Pen Needle] 32 gauge x 5/32 needle See Rx Instructions .Route Qty: 100 5RF Rx Instructions: BID (DME) blood-glucose meter Kit See Rx Instructions .Route Qty: 1 0RF Rx Instructions: As directed Stand Alone Forms: ED Work / School Excuse Primary Care Provider: Amira Ballard Referrals: Nova Chino NP, [facility] [Non-Staff -Ordering Privileges] - As soon as possible Disposition Disposition: Home, Self Care
[2023-05-30] MEDS: 0.9% Normal Saline (1000mL) 1,000 ML 1000 ML IV (17:36)
[2023-05-30 17:41] LABS: Absolute Lymphocyte Count 3.42 X10^3/uL (0.83-4.51); Basophil# 0.04 X10^3/uL; Basophil% 0.5 % (0-1); Eosinophil# 0.15 X10^3/uL; Eosinophils% 1.8 % (0-5); Hematocrit 41.8 % (37-47); Hemoglobin 13.7 g/dL (12.0-15.0); Lymphocyte # 3.42 X10^3/ul (0.83-4.51); Lymphocyte % 41.1 % (19-41); Mean Corp Hgb Conc 32.8 g/dL (32-36); Mean Corpuscular Hgb 28.9 pg (27.0-32.0); Mean Corpuscular Volume 88.2 fL (81-99); Mean Platelet Vol. 8.9 fl (6.2-12.0); Monocyte# 0.72 X10^3/uL; Monocyte% 8.6 % (0-10); NRBC Flagged by Analyzer 0 % (0-5); Neutrophil # 3.97 X10^3/uL (2.7-7.7); Neutrophil % 47.6 % (47-70); Platelet Count 308 K/mm3 (150-450); RBC Distribution Width CV 11.9 % (11.6-14.6); RBC Distribution Width SD 38.3 fl (35.1-43.9); Red Blood Count 4.74 M/mm3 (4.2-5.4); White Blood Count 8.3 K/mm3 (4.4-11.0)
--- OUTSIDE RECORDS SUMMARY | 2023-05-30 17:47 | XMS RPT_ITS | CCD ---
Author Name Unknown Address [address] [place] [address] Organization [facility] Care Team Providers Care [place] Supervisor Name Role Phone PEARL RICARDO Unavailable Unavailable PHYSICIAN, NOT RECORDED Unavailable Unavaila GERI Duncan Unavailable Unavailable GERI WILKINSON Unavailable Unavailable LIDIA MEDRANO Unavailable Unavailable Nita Jensen Primary Care Provider Allergies Allergy Classification Reported Allergen(s) Allergy Type Date of Onset Reaction(s) Facility (2 sources) Latex; Translations: [LATEX] Propensity to adverse reactions to drug (disorder) 8 Rash [facility] Other [employer] Repository Medications Completed/Discontinued Medications Medication Drug Class(es) Dates Sig (Normalized) Sig (Original) [id number] 200 actuat albuterol 0.09 mg/actuat metered dose inhaler (1 source) beta2-Adrenergic Agonist take 2 puff(s) by inhalation every four hours as needed for cough albuterol HFA (PROVENTIL HFA, VENTOLIN HFA) 90 mcg/actuation inhaler Inhale 2 Puffs as instructed every 4 hours as needed. For Cough/ SOB 0 Active Problems Problem Classification Problem Date Documented Da te Episodic/Chronic Chronic obstructive pulmonary disease and bronchiectasis (1 source) Chronic obstructive lung disease; Translations: [Chronic obstructive pulmonary disease, unspecified] 03-04-2018 Chronic Genitourinary symptoms and ill-defined conditions (1 source) Female stress incontinence; Translations: [Stress incontinence (female) (male)] Onset: 03-04-2018 03-04-2018 Chronic Osteoarthritis (1 source) Unilateral primary osteoarthritis, left knee; Translations: [Unilateral primary osteoarthritis, left knee] Onset: 03-17-2018 Chronic Other connective tissue disease (1 source) Presence of left artificial knee joint; Translations: [Presence of left artificial knee joint] Onset: 03-16-2018 Chronic Other diseases of bladder and urethra (1 source) Overactive bladder; Translations: [Overactive bladder] Onset: 03-04-2018 03-04-2018 Chronic Results Test Name Value Interpretation Reference Range Facil ity Encounters Encounter Date Encounter Type Care Provider Facility Start: 01-13-2022 Telephone encounter Maria Elena perez MD Work Phone: Internal [facility] Procedures Date Procedure Procedure Detail Performing Clinician Start: 03-04-2018 Antibody screen GERI WILKINSON Plan of Treatment Date Care Activity Detail Author Start: 12-04-2021 Influenza vaccination INFLUENZA (#1) [facility] Start: 04-05-2021 DEPRESSION ASSESSMENT DEPRESSION ASS ESSMENT [facility] Start: 03-17-2021 DIABETES SCREEN DIABETES SCREEN [facility] Start: 2021 SHINGRIX VACCINE (1 of 2) SHINGRIX V ACCINE (1 of 2) [facility] Start: 02-20-2016 COLOGUARD (FIT-DNA) COLOGUARD (FIT-D NA) [facility] Start: 02-20-2016 Colonoscopy COLONOSCOPY [facility] Start: 02-20-2016 COLORECTAL CANCER SCREENING COLORECTAL CANCER SCREENING [facility] Start: 02-20-[address] COLONOGRAPHY [facility] Start: 02-20-2016 FECAL OCCULT BLOOD FECAL OCCULT BLOO D [facility] Start: 02-20-2016 LIPID SCREEN LIPID SCREEN [facility] Start: 02-20-2016 SIGMOIDOSCOPY SIGMOIDOSCOPY [facility] Start: 2011 Mammography MAMMOGRAM [facility] Start: 10-18-2007 PAP TESTING PAP TESTING [facility] Start: 2001 HPV TESTING HPV TESTING [facility] Start: 2001 Zoledronic acid therapy ALPHA- 1 ANTITRYPSIN DEFICIENCY SCREENING [facility] Start: 1990 Urine microalbumin profile DTAP,TDAP ,TD (1 - Tdap) [facility] Start: 1989 ANNUAL PCP TEAM SOFTWARE DEVELOPER MID LEVEL GRACIA DISEASE VISIT ANNUAL PCP TEAM CHRONIC DISEASE VISIT [facility] Start: 1989 HEPATITIS C SCREENING HEPATITIS C SC ARLIN [facility] Start: 1989 HIV SCREENING HIV SCREENING [facility] Start: 1989 SPIROMETRY SPIROMETRY [facility] Start: 1977 PNEUMOCOCCAL (1 - PCV) PNEUMOCOCCAL (1 - PCV) [facility] Start: 1971 COVID-19 VACCINE (#1) COVID-19 VACCI NE (#1) [facility] Start: 1971 HEPATITIS B (1 of 3 - 3-dose series) HEPATITIS B (1 of 3 - 3-dose series) [facility] Payers Date Payer Category Payer Medicaid [facility] MEDICAID [facility] [employer] [employer] MEDICAID OF [place] [id number] 2017-Present [phone] [address] [place] [address] Medicaid 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) [facility] Start: 1971 Sex Assigned At Female [facility] Medical Equipment Procedure Code Equipment Code Equipment Origin al Text Equipment Identifier Dates Component Tritan ium 29mm Metal 9mm Patellar Asymmetric Knee - [id number] Start: 03-16-2018 Note 01-13-2022 Telephone Encounter - Maria Elena Castaneda MD - 01/13/2022 5:04 PM EDTTelephone Encounter - Susu Mendoza LPN - 01/13/2022 11:08 AM EDTTelephone Encounter - Briana Prajapati - 01/13/2022 8:11 AM EDT Note Date & Type Note Facility 01-13-2022 Miscellaneous Notes Formattin g of this note might be different from the original. It seems to me that patient has Nita as her pcp? Although I cannot take her on as a patient, I am sure someone in our team can see her. You could put her in Joys schedule to be seen tomorrow. Reviewed [facility] ER report. Pt was discharged with a prescription for glucometer and metformin 500 mg one by mouth twice daily #60. Her blood sugar at [facility] per lab was non fasting it was 477 POC was 366. Hemaglobin A1c is 12.6 Patient called stating that she was hospitalized last night and was instructed to schedule a hospital follow up visit with Dr. Castaneda. I explained that Dr. Castaneda is not accepting new patients at this time and the internal medicine physicians did not have any openings today. The patient insisted that she be seen today since she is diabetic and her sugar levels have yet to improve. I stated that I would reach out to the office. Please contact patient to advise on plan of care or potential approved appointment times. documented in this encounter [facility] Progress note 05-30-2020 Note Date & Type Note Facility 05-30-2020 Note HNO ID: [id number] Author: Geri Wilkinson Service: ? Author Type: Physician Type: Progress Notes Filed: 06/27/2020 10:12 PM Note Text: Geri Wilkinson MD Department of Orthopaedics Orth[facility] [address] [facility] [address] Dept: [phone] Dept May 30, 2020 CHIEF COMPLAINT: New and Pain of the Left Foot HPI AMB ROOMING INTAKE FLOWSHEET DATA Risk Screening Do you have concerns about personal safety or safety in the home?: No Pain Pain Level: 6 Pain Location: Foot-Left Description: Sharp, Shooting Duration Amount of Time: 1 Duration Units: Months Frequency: Continuous Intervention: Relaxation Patient presents with: Left Foot - New, Pain Patient states pain worsen's when getting up from a seated position. ASSESSMENT: M67.88 Achilles tendonosis of left lower extremity (primary encounter diagnosis) M79.672 Pain in left foot PLAN: Stretching, icing, voltaren. Ms. Iwona Ibrahim was advised as to contrast therapies and/or to take analgesics/anti-inflammatories as needed and all contraindications were reviewed. OBJECTIVE: Ms. Iwona Ibrahim is a pleasant 50 year old in no apparent distress. Gen:LMP 02/16/2018 nl development, non obese, no deformities ENT: Normocephalic, normal hearing, moist mucosa CV: Pulses:DP/PT= 2+ and symmetric, capillary refill < 2 secs, no peripheral edema/varicosities Skin: no rash, bruising or lesions. Good turgor. Psych: cooperative and appropriate, alert and oriented x 3, good mood and affect. Musculoskeletal: Mild swelling of the achilles. No defect. Intact Flex and Extend. Imagin vies from outside facility showing normal ankle films, maybe some mild tibiotalar OA. . Supporting Subjective Information Below: Past Surgical History: PAST SURGICAL HISTORY Procedure Laterality Date - APPENDECTOMY - LAP, SURG MOBIL SPLENIC FL DUR PTL COLECTOMY 11/14/2014 diverticulitis - LAPAROSCOPIC CHOLEYCYSTECTOMY - PART REMOVAL COLON W ANASTOMOSIS 11-14-14 - TOTAL KNEE REPLACEMENT Left 03/16/2018 Knee replacement, total Left - TUBAL LIGATION HX Medications: Current Outpatient Medications Medication Sig - meloxicam (MOBIC) 15 mg tablet Take 1 tablet by mouth once daily. - amoxicillin (POLYMOX, AMOXIL) 500 mg capsule 2 gm (4 pills) within one our of dental procedure. (Patient not taking: Reported on 05/30/2020 ) - oxybutynin ER (DITROPAN XL) 10 mg 24 hr tablet Take 1 tablet by mouth once daily. - cyclobenzaprine (FLEXERIL) 5 mg tablet Take 5 mg by mouth daily at bedtime. - Cholecalciferol, Vitamin D3, 1,000 unit cap Take 1,000 Units by mouth once daily. - montelukast (SINGULAIR) 10 mg tablet Take 1 tablet by mouth daily at bedtime. - budesonide-formoterol (SYMBICORT) 80-4.5 mcg/actuation inhaler Inhale 2 Puffs as instructed twice daily. - albuterol HFA (PROVENTIL HFA, VENTOLIN HFA) 90 mcg/actuation inhaler Inhale 2 Puffs as instructed every 4 hours as needed. For Cough/ SOB No current facility-administered medications for this visit. Allergies: Latex ROS: General (negative for fatigue, malaise, weight loss/gain) HEENT (negative for headache, earache, recent vision changes, sinus pain, sore throat) Respiratory (no recent shortness of breath, hemoptysis) CV (negative for chest tightness, palpitations) Musculoskeletal (see HPI) Psych (no depression, anxiety) Geri Wilkinson MD [facility] History of Past illness Narrative 02-01-2018 Note Date & Type Note Facility documented as of this encounter (statuses as of 01/14/2022) [facility] Summary Purpose Family History No Family History Records FoundNo Family History Records FoundNo Family History Records Found Advance Directives No Advanced Directives Records FoundNo Advanced Directives Records FoundNo Advanced Directives Records Found Hospital Course Note HNO ID: [id number]: litzy (Music Sound Light Technician) GraterService: Orthopaedic SurgeryAuthor Type: Nurse PractitionerType: Discharge SummariesFiled: 03/17/2018 2:53 PMNote Text: DISCHARGE SUMMARYPATIENT NAME: Iwona Ibrahim ADMISSION DATE: 03/16/2018MRN: [id number] DISCHARGE DATE: 03/17/2018PATIENT DISCHARGE SUMMARYC O N F I D E N T I A L I N F O R M A T I O NThe following is a brief overview of your hospitalization. Some of theinformation contained on this summary may be confidential. Thisinformation should be kept in your records and should be shared with yourregular doctor.These instructions explain what you or your medicare nurse need to do tocontinue your care at home or at another healthcare facility? Please go over these instructions with your nurse and medicare nurse.? If you are not sure about something, please ask. ----- Highest Readmission Risk Score: 8The 30 day readmissions risk score is (more content not included)... Additional Source Comments INFORMATION SOURCE (unrecogn ized section and content) DATE CREATED AUTHOR AUTHOR'S ORGANIZ ATION 03/24/2018 [facility] DATE CREATED AUTHOR AUTHOR'S ORGANIZ ATION 05/29/2021 [facility] Source Comments (unrecognize d section and content) In the event this informatio n is protected by the Federal Confidentiality of Alcohol and Drug Abuse Patient Records regulations: The Federal rules restrict any use of the information to criminally investigate or prosecute any alcohol or drug abuse patient.[facility] Reason for Visit (unrecogniz ed section and content) Care Teams (unrecognized sec tion and content) FOR RECORDS PERTAINING TO PATIENTS WHO ARE OR HAVE BEEN ENROLLED IN A CHEMICAL DEPENDENCY/SUBSTANCEABUSE PROGRAM, SOME INFORMATION MAY BE OMITTED. This clinical summary was aggregated from multiple sources. Caution should be exercised in using it in the provision of clinical care. This summary normalizes information from multiple sources, and as a consequence, information in this document may materially change the coding, format and clinical context of patient data. In addition, data may be omitted in some cases. CLINICAL DECISIONS SHOULD BE BASED ON THE PRIMARY CLINICAL RECORDS. [id number]. provides no warranty or guarantee of the accuracy or completeness of information in this document.
[2023-05-30 17:56] LABS: Anion Gap 5 (5-15); BUN 17 mg/dL (7-18); BUN/Creat Ratio 20.7 RATIO (10-20); Calcium,Total 9.3 mg/dL (8.5-10.1); Chloride 111 mmol/L (98-107); Creatinine, Serum 0.82 mg/dL (0.55-1.02); EST Glomerular Filtration Rate 77 mL/min (>60); Est Glom Filt Rate - Afr Amer 94 mL/min (>60); Estimated Creatinine Clearance 85.48 ml/min; Glucose 171 mg/dL (74-106); Potassium 3.8 mmol/L (3.5-5.1); Sodium Level 140 mmol/L (136-145)
[2023-05-30 18:11] LABS: Bacteria 0 SEEN /hpf (None Seen); Color, Urine Yellow (Yellow); Glucose, Dipstick Normal (Normal); Ketone-Dipstick Negative (Negative); Leukocyte Esterase-Dipstick Negative /ul (Negative); Mucous, Urine 0 SEEN /hpf (<or=2+); Nitrite-Dipstick Negative (Negative); Occult Blood-Urine Negative /ul (Negative); Protein-Dipstick Negative (Negative); Red Blood Cells-Urine 0 SEEN /hpf (0-5); Urine Bilirubin Dipstick Negative (Negative); Urine Clarity Clear (Clear); Urine Urobilinogen Normal (Normal)
[2023-05-30 18:18] LABS: Squamous Epithelial Cells - UA 0-5 SEEN /hpf (5-10); White Blood Cells 0-5 SEEN /hpf (0-5)
[2023-05-30 18:52] VITALS: BP 148/92; PULSE 85; RESP 14; TEMP 36.8; O2SAT 99
== END 2023-05-30 18:52 | disposition home or self-care (01) ==
PROVIDERS: Emergency Provider Emergency Medicine; PCP Nurse Practitioner Family; Visit Provider Emergency Medicine
DX: E86.0 Dehydration (principal); E11.9 Type 2 diabetes mellitus without complications; R42 Dizziness and giddiness; Z87.891 Personal history of nicotine dependence; I10 Essential (primary) hypertension; Z79.899 Other long term (current) drug therapy; Z90.49 Acquired absence of other specified parts of digestive tract; Z96.659 Presence of unspecified artificial knee joint; Z98.51 Tubal ligation status; R35.0 Frequency of micturition
CPT/HCPCS: 80048; 81001; 85025; 99283; J7030; A4216

== ENCOUNTER 2023-10-06 08:13 | Emergency (ER) | payer MEDICAID, SELFPAY ==
[2023-10-06 08:13] VITALS: BP 182/109; PULSE 122; RESP 18; TEMP 36.1; O2SAT 97; BMI 35.2
--- NOTE | 2023-10-06 08:21 | EX.ED.DYSGE1 ---
HPI History of Present Illness Chief Complaint: Wound Informant: patient Onset/Context/Timing Onset: Days Context: Gradual Onset Narrative Narrative: Patient presents with pain and swelling to the right third finger for the past couple days. She had a hangnail that she tore off and believes it got infected. She is right-hand dominant. She is diabetic and states her blood sugars have been under good control. No fever or chills. [facility] Medical History Cellulitis of left axilla Incontinence Asthma Knee pain SOB (shortness of breath) HTN (hypertension) Arthritis Abdominal pain, left lower quadrant Anxiety disorder Bipolar disorder Home Medications ?Medication ?Instructions ?Recorded ?Last Taken ?Type blood-glucose meter #1 ea 01/12/22 Unknown Rx compr.stocking,thigh,reg,large #2 ea 12/10/22 Unknown Rx pen needle, diabetic 32 gauge x #100 ea 12/10/22 Unknown Rx 5/32 (BD Ultra-Fine Jennifer Pen Needle) empagliflozin 25 mg tablet 25 mg PO DAILY #30 tabs 07/21/23 Unknown Rx (Jardiance) lisinopril 20 mg tablet 20 mg PO DAILY #30 tabs 07/21/23 Unknown Rx metformin 500 mg tablet 1,000 mg (2 x 500 mg) PO BID #120 07/21/23 Unknown Rx tabs doxycycline monohydrate 100 mg 100 mg PO BID #20 caps 07/28/23 Unknown Rx capsule blood sugar diagnostic (True #100 ea 07/30/23 Unknown Rx Metrix Glucose Test Strip) cephalexin 500 mg capsule 500 mg PO Q6 #40 CAPSULES 10/06/23 Unknown Rx Allergy/AdvReac Type Severity Reaction Status Date / Time latex Allergy Rash Verified 10/06/23 08:13 acetaminophen AdvReac Mild Other Verified 10/06/23 08:13 Family History Mother Hypertension High cholesterol Father Hypertension Other Cancer Surgical History History of total knee replacement History of tubal ligation History of History of colectomy History of appendectomy History of laparoscopic cholecystectomy Social History Smoking Status: Former smoker alcohol intake: never substance use type: does not use ROS ROS ED Constitutional Constitutional ED: Denies chills or fever(s) ENT ENT ED: Denies rhinorrhea Cardiovascular Cardiovascular: Denies chest pain Respiratory/Chest Respiratory/Chest: Denies cough or dyspnea Gastrointestinal Gastrointestinal: Denies abdominal pain, nausea or vomiting Musculoskeletal Musculoskeletal: Reports extremity pain; Denies back pain Integumentary Reports abscess; Denies Abrasions or rash Neurologic Neurologic: Denies headache(s) or weakness Psychiatric Psychiatric: Denies anxiety or depression Allergic/Immunologic Allergic/Immunologic ED: Denies lip swelling or urticaria EXAM Physical Exam Const Vital Signs: 10/06/23 08:13 Temperature 97 F L Temperature Source Temporal Pulse Rate 122 H Respiratory Rate 18 Blood Pressure 182/109 H Blood Pressure Mean 133 Pulse Ox 97 Oxygen Delivery Method Room Air Positive well nourished and well developed General Appearance ED: well developed HEENT Reports moist mucous membranes Eyes EOMs intact bilaterally Chest Wall inspection of chest normal and palpation of chest normal Resp normal respiratory effort and clear to auscultation bilaterally Cardio regular rate and regular rhythm GI non-tender Palpation: soft Extremity Extremity Narrative: Patient has a paronychia to the right third finger along the proximal and radial side of the nailbed. No spontaneous drainage. Good range of motion at all joints. Neuro oriented x3 and no sensory deficits noted Motor Exam: strength 5/5 throughout MDM MDM MDM Narrative Medical decision making narrative: Patient was consented for I&D. 3 cc 1% lidocaine are used in a digital block. Patient receives good anesthesia. A three-quarter centimeter incision is made with a #11 blade. There is initial return of pus followed by blood. Wound is thoroughly cleansed and irrigated. Antibiotic ointment and dressing placed. Patient given a dose of Keflex here will be placed on the same. Return instructions provided. Discharge Plan Triage Chief Complaint: Wound ED Provider: Alisa Bahena Dx/Rx/DC Orders Clinical Impression: Paronychia Instructions: ED Paronychia of the Finger or Toe Prescriptions: New cephalexin 500 mg capsule 500 mg PO Q6 Qty: 40 0RF No Action (DME) compr.stocking,thigh,reg,large Misc See Rx Instructions .Route Qty: 2 5RF Rx Instructions: daily (DME) pen needle, diabetic [BD Ultra-Fine Jennifer Pen Needle] 32 gauge x /32 needle See Rx Instructions .Route Qty: 100 5RF Rx Instructions: BID Jardiance 25 mg tablet 25 mg PO DAILY Qty: 30 5RF metformin 500 mg tablet 1,000 mg PO BID Qty: 120 5RF lisinopril 20 mg tablet 20 mg PO DAILY Qty: 30 5RF doxycycline monohydrate 100 mg capsule 100 mg PO BID Qty: 20 0RF (DME) blood-glucose meter Kit See Rx Instructions .Route Qty: 1 0RF Rx Instructions: As directed (DME) True Metrix Glucose Test Strip Strip See Rx Instructions .Route Qty: 100 5RF Rx Instructions: BID Stand Alone Forms: ED Work / School Excuse Primary Care Provider: Amira Ballard Referrals: Amira Ballard, LEGAL BILLING SPECIALIST-C [Primary Care Provider] - Print Language: Kazakh Disposition Disposition: Home, Self Care
[2023-10-06] MEDS: Cephalexin 500 MG Capsule PO (08:24)
[2023-10-06] MEDS: Lidocaine 1% (20 ml mdv) 20 ML Vial INFILT (08:24)
== END 2023-10-06 08:53 | disposition home or self-care (01) ==
PROVIDERS: Emergency Provider Emergency Medicine; PCP Nurse Practitioner Family; Visit Provider Emergency Medicine
DX: L03.011 Cellulitis of right finger (principal); E11.9 Type 2 diabetes mellitus without complications; M79.644 Pain in right finger(s); Z87.891 Personal history of nicotine dependence; I10 Essential (primary) hypertension
CPT/HCPCS: 64450; 10060; 99282

== ENCOUNTER → 2024-01-21 | Outpatient (CLI) | payer MEDICAID, SELFPAY ==
[2024-01-21 12:50] LABS: Vitamin D,25 Hydroxy 11.7 ng/mL
[2024-01-21 12:57] LABS: ALB/GLOB Ratio 0.9 RATIO (0.9-2.4); AST(SGOT) 21 U/L (15-37); Alanine Aminotransfer ALT/SGPT 34 U/L (13-56); Albumin, Serum 3.5 g/dL (3.2-5.0); Alkaline Phosphatase 125 U/L (45-117); Anion Gap 5 (5-15); BUN 10 mg/dL (7-18); BUN/Creat Ratio 17.6 RATIO (10-20); Calcium,Total 8.8 mg/dL (8.5-10.1); Chloride 109 mmol/L (98-107); Cholesterol 152 mg/dL (200); Creatinine, Serum 0.57 mg/dL (0.55-1.02); EST Glomerular Filtration Rate 119 mL/min (>60); Est Glom Filt Rate - Afr Amer 144 mL/min (>60); Globulin 3.9 g/dL (2.2-4.2); Glucose 119 mg/dL (74-106); High Density Lipoprotein 49 mg/dL; Potassium 3.8 mmol/L (3.5-5.1); Protein, Total 7.4 g/dL (6.4-8.2); Sodium Level 141 mmol/L (136-145); Triglycerides 180 mg/dL; Very Low Density Lipoprotein 36 mg/dL (5-40)
[2024-01-21 13:26] LABS: Microalbumin,Random Urine 16.8 mg/L (NO RANGE EST.); Microalbumin:Creatinine Ratio 14.9 mg/g CRE (<30 mg/g CRE)
== END | disposition home or self-care (01) ==
PROVIDERS: PCP Nurse Practitioner Family; Referring Provider Nurse Practitioner Family; Visit Provider Nurse Practitioner Family
DX: E11.65 Type 2 diabetes mellitus with hyperglycemia (principal); Z79.4 Long term (current) use of insulin
CPT/HCPCS: 36415; 80053; 80061; 82043; 82306; 82570; 84443

== ENCOUNTER → 2024-02-04 | Outpatient (CLI) | payer MEDICAID, SELFPAY | END | disposition home or self-care (01) | LOC: US 16:19 | PROVIDERS: PCP Nurse Practitioner Family; Referring Provider Nurse Practitioner Family; Visit Provider Nurse Practitioner Family | DX: E04.9 Nontoxic goiter, unspecified (principal) | CPT/HCPCS: 76536 ==

== ENCOUNTER 2024-02-05 14:36 | Emergency (ER) | payer MEDICAID, SELFPAY ==
[2024-02-05 14:36] VITALS: BP 141/92; PULSE 85; RESP 16; TEMP 36.9; O2SAT 97; BMI 38.0
--- NOTE | 2024-02-05 15:22 | ED.VIS.LOWEX ---
HPI History of Present Illness Chief Complaint: Edema Informant: patient Narrative Narrative: Patient is a 53-year-old female presenting with lower leg swelling. Patient notes that she did have some right leg swelling yesterday and today when she woke up she had significant swelling of her bilateral legs with the right was worse than the left. She states that she has cramping sensation in her legs. She states it was feels like a charley horse. She does note that sometimes when she is on her feet for a long time she is increase swelling. She also reports that she does have some Scratches on her right lower leg. She is not think they are infected. Denies any fever or chills. Not know the last time she had blood work done. Denies any history of DVT or PE. Is not on any blood thinners. Is not on any estrogen medication. Patient states that she was told from her work (she works at [employer]) that she had to have this evaluated today as she called off from work. No other complaints or concerns at this time. Denies any cough, shortness of breath or difficulty breathing. Denies any known cardiac history. [facility] Medical History Cellulitis of left axilla Incontinence Asthma Knee pain SOB (shortness of breath) HTN (hypertension) Arthritis Abdominal pain, left lower quadrant Anxiety disorder Bipolar disorder Home Medications ?Medication ?Instructions ?Recorded ?Last Taken ?Type blood-glucose meter #1 ea 01/12/22 Unknown Rx compr.stocking,thigh,reg,large #2 ea 12/10/22 Unknown Rx pen needle, diabetic 32 gauge x #100 ea 12/10/22 Unknown Rx (BD Ultra-Fine Jennifer Pen Needle) fluconazole 200 mg tablet 200 mg PO DAILY #2 tabs 10/20/23 Unknown Rx (Diflucan) blood sugar diagnostic (True #100 ea 11/18/23 Unknown Rx Metrix Glucose Test Strip) desipramine 25 mg tablet 25 mg PO QHS #30 tabs 11/18/23 Unknown Rx empagliflozin 25 mg tablet 25 mg PO DAILY #30 tabs 11/18/23 Unknown Rx (Jardiance) insulin degludec 100 unit/mL (3 15 unit (0.15 mL) subcut QHS #4.5 11/18/23 Unknown Rx mL) subcutaneous pen (Tresiba mL FlexTouch U-100 insulin) lisinopril 20 mg tablet 20 mg PO DAILY #30 tabs 11/18/23 Unknown Rx metformin 500 mg tablet 1,000 mg (2 x 500 mg) PO BID #120 11/18/23 Unknown Rx tabs amoxicillin 875 mg-potassium 1 tab PO BID #20 tabs 02/05/24 Unknown Rx clavulanate 125 mg tablet furosemide 20 mg tablet (Lasix) 20 mg PO DAILY PRN edema #7 tabs 02/05/24 Unknown Rx potassium chloride 20 mEq 20 meq PO DAILY #7 tabs 02/05/24 Unknown Rx tablet,extended release Allergy/AdvReac Type Severity Reaction Status Date / Time latex Allergy Rash Verified 02/05/24 14:36 acetaminophen AdvReac Mild Other Verified 02/05/24 14:36 Family History Mother Hypertension High cholesterol Father Hypertension Other Cancer Surgical History History of total knee replacement History of tubal ligation History of History of colectomy History of appendectomy History of laparoscopic cholecystectomy Social History Smoking Status: Former smoker alcohol intake: never substance use type: does not use ROS ROS ED Constitutional Constitutional ED: Denies chills or fever(s) Respiratory/Chest Respiratory/Chest: Denies cough, dyspnea or dyspnea on exertion Musculoskeletal Musculoskeletal: Reports myalgias and other Details: leg swelling and cramping Integumentary Reports Abrasions Neurologic Neurologic: Denies paresthesias or weakness Psychiatric Psychiatric: Reports anxiety Hematologic/Lymphatic Hematologic/Lymphatic: Denies easy bleeding or easy bruising EXAM Physical Exam Const Vital Signs: 02/05/24 14:36 02/05/24 15:54 Temperature 98.4 F Temperature Source Oral Pulse Rate 85 Respiratory Rate 16 Respiratory Pattern Normal Blood Pressure 141/92 H Blood Pressure Mean 108 Pulse Ox 97 Oxygen Delivery Method Room Air Positive well nourished and well developed General Appearance ED: well developed and NAD HEENT Reports moist mucous membranes Neck supple Neck Narrative: No JVD Chest Wall inspection of chest normal Resp normal respiratory effort and clear to auscultation bilaterally Resp Narrative: No crackles appreciated Auscultation: Negative for diminished lung sounds Cardio regular rate and regular rhythm Cardio Narrative: 2+ DP pulses bilaterally GI non-tender and non-distended Extremity Extremity Narrative: Mild nonpitting edema to the bilateral lower extremities. Compartments are soft. No palpable cords. No deformity of the joints. No bony tenderness. Neuro oriented x3 Sensorium / Orientation: alert Motor Exam: Negative for general weakness Psych mental status grossly normal Skin Skin Narrative: Superficial abrasions of the right anterior mid lower leg consistent with a cat scratch. No surrounding drainage erythema or fluctuance. MDM MDM MDM Narrative Medical decision making narrative: Patient evaluated for bilateral leg swelling, right worse than left. Does have a cat scratch/abrasion to her right biggs but at this time no signs of acute infection. Will obtain basic labs and she does not have any significant Bruce abnormalities especially given that she is reporting cramping. Initially venous duplex was ordered but we do not have this capability as of this past 1 PM. Bedside ultrasound performed by myself did not show any obvious DVT and I suspect there is a Gray's cyst in the left popliteal fossa. Patient be given outpatient order for formal venous duplex ultrasound. Patient does have mild hypokalemia with potassium 3.4. Lab work otherwise remarkable for hyperglycemia the glucose of 247 however patient has a normal anion gap and normal bicarb. Chart view shows the patient does have oscillating high blood sugars does have a known history of diabetes. She follows with endocrinology. Patient was placed on a short course of Lasix as well as potassium supplementation. Given outpatient ultrasound for her legs. Is given a [id number] prescription for antibiotics for with her cat scratch. Patient given a work note for today. Given return precautions. Discharged home in stable condition. Lab Data Attestation: I reviewed the patient's lab results. Labs: Laboratory Results - last 24 hr 02/05/24 15:30 WBC 7.2 RBC 5.20 Hgb 15.0 Hct 46.2 MCV 88.8 MCH 28.8 MCHC 32.5 RDW Std Deviation 39.4 RDW Coeff of Nusrat 12.0 Plt Count 304 MPV 9.1 Immature Gran % (Auto) 0.400 Neut % (Auto) 48.5 Lymph % (Auto) 41.3 H [place] % (Auto) 6.9 Eos % (Auto) 2.5 Baso % (Auto) 0.4 Absolute Neuts (auto) 3.5 Absolute Lymphs (auto) 2.97 Nucleated RBC % 0 Sodium 139 Potassium 3.4 L Chloride 105 Carbon Dioxide 27.0 Anion Gap 7 BUN 16 Creatinine 0.72 Estim Creat Clear Calc 97.83 Est GFR (MDRD) Af Amer 109 Est GFR (MDRD) Non-Af 90 BUN/Creatinine Ratio 22.2 H Glucose 247 H Calcium 8.8 Magnesium 2.1 Total Creatine Kinase 120 Discharge Plan Triage Chief Complaint: Edema ED Provider: Alanna Wheeler Dx/Rx/DC Orders Clinical Impression: Localized swelling of both lower legs, Cat scratch, Hypokalemia, Blood glucose elevated Prescriptions: New potassium chloride 20 mEq tablet extended release 20 meq PO DAILY Qty: 7 0RF amoxicillin-pot clavulanate 875-125 mg tablet 1 tab PO BID Qty: 20 0RF furosemide [Lasix] 20 mg tablet 20 mg PO DAILY PRN (Reason: edema) Qty: 7 0RF No Action (DME) compr.stocking,thigh,reg,large Misc See Rx Instructions .Route Qty: 2 5RF Rx Instructions: daily (DME) pen needle, diabetic [BD Ultra-Fine Jennifer Pen Needle] 32 gauge x 5/32 needle See Rx Instructions .Route Qty: 100 5RF Rx Instructions: BID fluconazole [Diflucan] 200 mg tablet 200 mg PO DAILY Qty: 2 0RF Rx Instructions: 1 tab, repeat in 3 days. (DME) blood-glucose meter Kit See Rx Instructions .Route Qty: 1 0RF Rx Instructions: As directed Jardiance 25 mg tablet 25 mg PO DAILY Qty: 30 5RF metformin 500 mg tablet 1,000 mg PO BID Qty: 120 5RF insulin degludec [Tresiba FlexTouch U-100] 100 unit/mL (3 mL) insulin pen 15 unit subcut QHS Qty: 4.5 5RF desipramine 25 mg tablet 25 mg PO QHS Qty: 30 5RF lisinopril 20 mg tablet 20 mg PO DAILY Qty: 30 5RF (DME) True Metrix Glucose Test Strip Strip See Rx Instructions .Route Qty: 100 5RF Rx Instructions: BID Stand Alone Forms: ED Work / School Excuse Primary Care Provider: Amira Ballard Referrals: Amira Ballard, [facility] [Primary Care Provider] - Activity Restrictions/Additional Instructions: Please follow-up for a formal ultrasound of your legs to ensure there is no blood clot or other abnormality however I did not see any obvious blood clots on bedside ultrasound today. Your potassium was mildly low. You been given potassium supplement as well as water pill (furosemide) to help with the swelling. You been given a prescription for antibiotics to take if you develop any signs of skin infection around the cat scratches on your leg. If you start taking antibiotics please complete the entire course. Print Language: Lao Disposition Disposition: Home, Self Care
[2024-02-05 15:44] LABS: Absolute Lymphocyte Count 2.97 X10^3/uL (0.83-4.51); Absolute Neutrophil Count 3.5 X10^3/uL (2.0-7.7); Basophil# 0.03 X10^3/uL; Basophil% 0.4 % (0-1); Eosinophil# 0.18 X10^3/uL; Eosinophils% 2.5 % (0-5); Hematocrit 46.2 % (37-47); Lymphocyte # 2.97 X10^3/ul (0.83-4.51); Lymphocyte % 41.3 % (19-41); Mean Corp Hgb Conc 32.5 g/dL (32-36); Mean Corpuscular Hgb 28.8 pg (27.0-32.0); Mean Corpuscular Volume 88.8 fL (81-99); Mean Platelet Vol. 9.1 fl (6.2-12.0); Monocyte% 6.9 % (0-10); NRBC Flagged by Analyzer 0 % (0-5); Neutrophil # 3.49 X10^3/uL (2.7-7.7); Neutrophil % 48.5 % (47-70); Platelet Count 304 K/mm3 (150-450); RBC Distribution Width SD 39.4 fl (35.1-43.9); White Blood Count 7.2 K/mm3 (4.4-11.0)
[2024-02-05 15:59] LABS: Anion Gap 7 (5-15); BUN 16 mg/dL (7-18); BUN/Creat Ratio 22.2 RATIO (10-20); CPK Total, Creatine Kinase 120 U/L (26-192); Calcium,Total 8.8 mg/dL (8.5-10.1); Chloride 105 mmol/L (98-107); Creatinine, Serum 0.72 mg/dL (0.55-1.02); EST Glomerular Filtration Rate 90 mL/min (>60); Est Glom Filt Rate - Afr Amer 109 mL/min (>60); Estimated Creatinine Clearance 97.83 ml/min; Glucose 247 mg/dL (74-106); Magnesium 2.1 mg/dL (1.6-2.6); Potassium 3.4 mmol/L (3.5-5.1); Sodium Level 139 mmol/L (136-145)
[2024-02-05 17:58] VITALS: BP 143/64; PULSE 89; RESP 16; TEMP 36.6; O2SAT 99
== END 2024-02-05 17:58 | disposition home or self-care (01) ==
PROVIDERS: Emergency Provider Emergency Medicine; PCP Nurse Practitioner Family; Visit Provider Emergency Medicine
DX: M79.89 Other specified soft tissue disorders (principal); E11.9 Type 2 diabetes mellitus without complications; Z79.4 Long term (current) use of insulin; E87.6 Hypokalemia; I10 Essential (primary) hypertension; Z87.891 Personal history of nicotine dependence; S80.811A Abrasion, right lower leg, initial encounter; W55.03XA Scratched by cat, initial encounter; Z79.899 Other long term (current) drug therapy; Z96.659 Presence of unspecified artificial knee joint; Z98.51 Tubal ligation status; Z90.49 Acquired absence of other specified parts of digestive tract; Z79.84 Long term (current) use of oral hypoglycemic drugs
CPT/HCPCS: 80048; 82550; 83735; 85025; 99283; A4216

== ENCOUNTER → 2024-02-06 | Outpatient (CLI) | payer MEDICAID, SELFPAY ==
--- NOTE | 2024-02-06 10:12 | VDLE_ITS ---
Reason For Study: BLE SWELLING RIGHT LEFT GSV is normal. GSV is normal. CFV is compressible, spontaneous, phasic, CFV is compressible, spontaneous, phasic, competent and demonstrates normal competent, and demonstrates normal augmentation. augmentation. FV is compressible, spontaneous, phasic, FV is compressible, spontaneous, phasic, competent and demonstrates normal competent and demonstrates normal augmentation. augmentation. POP V is compressible, spontaneous, phasic, POP V is compressible, spontaneous, phasic, competent and demonstrates normal competent and demonstrates normal augmentation. augmentation. T/P Trunk is compressible. T/P Trunk is compressible. PTV is compressible. PTV is compressible. RT PerV is compressible. LT PerV is compressible. Procedure Exam performed in department. A preliminary report was called and/or faxed to Amira Ballard. VL/Venous Duplex US - Bernard Extrem Interpretation Summary Deep veins of the lower extremities are bilaterally patent and compressible seg mentally. There is no evidence of deep vein thrombosis on either side. Valvular competence appears in tact within the proximal deep venous systems bilaterally. The great saphenous veins appear bila terally patent and compressible segmentally. Ordering Physician: Alanna Wheeler Referring Physician: Amira Ballard Performed By: Linda Monterroso, POOJA, RVT
== END | disposition home or self-care (01) ==
LOC: VL 10:12
PROVIDERS: PCP Nurse Practitioner Family; Visit Provider Emergency Medicine
DX: M79.89 Other specified soft tissue disorders (principal)
CPT/HCPCS: 93970

== ENCOUNTER 2024-03-07 08:55 | Emergency (ER) | payer OTHER, MEDICAID, SELFPAY ==
[2024-03-07 08:55] VITALS: BP 154/95; PULSE 99; RESP 16; TEMP 36.6; O2SAT 99; BMI 39.1
[2024-03-07 09:25] LABS: Absolute Lymphocyte Count 3.13 X10^3/uL (0.83-4.51); Absolute Neutrophil Count 4.7 X10^3/uL (2.0-7.7); Basophil# 0.07 X10^3/uL; Basophil% 0.8 % (0-1); Eosinophil# 0.16 X10^3/uL; Eosinophils% 1.8 % (0-5); Hematocrit 47.1 % (37-47); Hemoglobin 15.5 g/dL (12.0-15.0); Lymphocyte # 3.13 X10^3/ul (0.83-4.51); Lymphocyte % 35.3 % (19-41); Mean Corp Hgb Conc 32.9 g/dL (32-36); Mean Corpuscular Hgb 29.1 pg (27.0-32.0); Mean Corpuscular Volume 88.4 fL (81-99); Monocyte# 0.78 X10^3/uL; Monocyte% 8.8 % (0-10); NRBC Flagged by Analyzer 0 % (0-5); Neutrophil # 4.68 X10^3/uL (2.7-7.7); Neutrophil % 52.7 % (47-70); Platelet Count 317 K/mm3 (150-450); RBC Distribution Width SD 38.5 fl (35.1-43.9); Red Blood Count 5.33 M/mm3 (4.2-5.4); White Blood Count 8.9 K/mm3 (4.4-11.0)
--- NOTE | 2024-03-07 09:32 | EX.ED.DYSGE1 ---
HPI History of Present Illness Chief Complaint: Hyperglycemia Informant: patient Narrative Narrative: Patient is a 54-year-old female presenting with concerns of hyperglycemia. Patient states she fell asleep with heat on she woke up sweating and very hot. She was sweating so much that she thought maybe it was a blood sugar problem so she checked her blood sugar. At 3 AM her blood sugar was 475. She was pushing fluids to try to her blood sugar down it went down to the 200s. She was concerned because her ketones were elevated and she read that of her blood sugars high and she has ketones it could be a bad thing so she came in for further evaluation. She states she is otherwise been feeling well. She notes some dry mouth and states her legs look a little red today. She denies any fevers, chest pain, shortness of breath, nausea, vomit, abdominal pain or change in urinary symptoms. She does have chronic frequency of urination but denies any acute change in this. She has chronic diarrhea secondary to a prior cholecystectomy but denies any change in that. She does follow-up with endocrinology. No other complaints or concerns reported at this time. States that she has been compliant with her medications. [facility] Medical History Cellulitis of left axilla Incontinence Asthma Knee pain SOB (shortness of breath) HTN (hypertension) Arthritis Abdominal pain, left lower quadrant Anxiety disorder Bipolar disorder Home Medications ?Medication ?Instructions ?Recorded ?Last Taken ?Type blood-glucose meter #1 ea 01/12/22 Unknown Rx compr.stocking,thigh,reg,large #2 ea 12/10/22 Unknown Rx pen needle, diabetic 32 gauge x #100 ea 12/10/22 Unknown Rx /32 (BD Ultra-Fine Jennifer Pen Needle) fluconazole 200 mg tablet 200 mg PO DAILY #2 tabs 10/20/23 Unknown Rx (Diflucan) blood sugar diagnostic (True #100 ea 11/18/23 Unknown Rx Metrix Glucose Test Strip) desipramine 25 mg tablet 25 mg PO QHS #30 tabs 11/18/23 Unknown Rx empagliflozin 25 mg tablet 25 mg PO DAILY #30 tabs 11/18/23 Unknown Rx (Jardiance) insulin degludec 100 unit/mL (3 15 unit (0.15 mL) subcut QHS #4.5 08/15/24 Unknown Rx mL) subcutaneous pen (Tresiba mL FlexTouch U-100 insulin) lisinopril 20 mg tablet 20 mg PO DAILY #30 tabs 11/18/23 Unknown Rx metformin 500 mg tablet 1,000 mg (2 x 500 mg) PO BID #120 11/18/23 Unknown Rx tabs amoxicillin 875 mg-potassium 1 tab PO BID #20 tabs 02/05/24 Unknown Rx clavulanate 125 mg tablet furosemide 20 mg tablet (Lasix) 20 mg PO DAILY PRN edema #7 tabs 02/05/24 Unknown Rx potassium chloride 20 mEq 20 meq PO DAILY #7 tabs 02/05/24 Unknown Rx tablet,extended release Allergy/AdvReac Type Severity Reaction Status Date / Time latex Allergy Rash Verified 03/07/24 09:00 acetaminophen AdvReac Mild Other Verified 03/07/24 09:00 Family History Mother Hypertension High cholesterol Father Hypertension Other Cancer Surgical History History of total knee replacement History of tubal ligation History of History of colectomy History of appendectomy History of laparoscopic cholecystectomy Social History Smoking Status: Former smoker alcohol intake: never substance use type: does not use ROS ROS ED Constitutional Constitutional ED: Reports sweats; Denies chills or fever(s) ENT ENT ED: Denies rhinorrhea or sore throat Cardiovascular Cardiovascular: Denies chest pain Respiratory/Chest Respiratory/Chest: Denies cough or dyspnea Gastrointestinal Gastrointestinal: Reports diarrhea; Denies abdominal pain or vomiting Genitourinary Genitourinary ED: Reports urinary frequency; Denies dysuria or hematuria Musculoskeletal Musculoskeletal: Denies arthralgias or myalgias Integumentary Denies rash Neurologic Neurologic: Denies headache(s) or weakness EXAM Physical Exam Const Vital Signs: 03/07/24 08:55 03/07/24 09:01 03/07/24 11:21 Temperature 97.9 F Temperature Source Oral Pulse Rate 99 67 Respiratory Rate 16 18 Respiratory Effort Normal Non-Labored Respiratory Pattern Normal Blood Pressure 154/95 H Blood Pressure Mean 114 Pulse Ox 99 Oxygen Delivery Method Room Air Positive well nourished and well developed General Appearance ED: well developed and NAD HEENT Reports dry mucous membranes Mouth ED: Yes dry mucous membranes Mouth: dry mucous membranes Eyes PERRL Neck supple and no JVD Chest Wall inspection of chest normal and palpation of chest normal Resp normal respiratory effort and clear to auscultation bilaterally Cardio regular rate and regular rhythm GI normal to inspection, nondistended, normoactive bowel sounds and non-tender Palpation: soft Extremity General Extremety ED: Negative for edema or tenderness General Extremity: Negative for edema Neuro oriented x3 Sensorium / Orientation: alert Motor Exam: Negative for general weakness Psych mental status grossly normal Skin no rashes or lesions noted and no wounds Skin Narrative: Patient has a mild pink flushing to her whole body but do not appreciate any cellulitic changes. No petechial lesions appreciated. MDM MDM MDM Narrative Medical decision making narrative: Patient is evaluated for elevated blood sugar at home. She reports feeling very hot and having dry mouth. Differential includes diabetic hyperglycemia, DKA, HH NK, JCARLOS, urinary tract infection or other electrolyte derangement. Patient is given a liter of IV fluid and will check CBC, BMP, acetone and urinalysis. Patient's workup largely normal. She is hyperglycemic with a glucose of 327 however she has a normal bicarb and normal anion gap. Urinalysis most consistent with contamination. After liter fluid blood sugar now 238. Will be given 4 units of insulin. Patient will be discharged home with outpatient follow-up with her primary care doctor. She will continue to push fluids. At this time she does not meet criteria for HHNK, DKA or other more severe pathology requiring admission. Patient comfortable with this plan of care. Discharged home in stable condition. Lab Data Labs: Laboratory Results - last 24 hr 03/07/24 03/07/24 03/07/24 09:15 09:20 11:20 WBC 8.9 RBC 5.33 Hgb 15.5 H Hct 47.1 H MCV 88.4 MCH 29.1 MCHC 32.9 RDW Std Deviation 38.5 RDW Coeff of Nusrat 12.0 Plt Count 317 MPV 9.0 Immature Gran % (Auto) 0.600 Neut % (Auto) 52.7 Lymph % (Auto) 35.3 [place] % (Auto) 8.8 Eos % (Auto) 1.8 Baso % (Auto) 0.8 Absolute Neuts (auto) 4.7 Absolute Lymphs (auto) 3.13 Nucleated RBC % 0 Sodium 134 L Potassium 3.8 Chloride 103 Carbon Dioxide 26.0 Anion Gap 5 BUN 16 Creatinine 0.74 Estim Creat Clear Calc 95.63 Est GFR (MDRD) Af Amer 105 Est GFR (MDRD) Non-Af 87 BUN/Creatinine Ratio 21.6 H Glucose 327 H Calcium 9.1 Urine Color Yellow Urine Clarity Sl. Cloudy Urine pH 6.0 Ur Specific [place] 1.025 Urine Protein 30 H Urine Glucose (UA) 1000 H Urine Ketones Negative Urine Occult Blood 10 H Urine Nitrite Negative Urine Bilirubin Negative Urine Urobilinogen Normal Ur Leukocyte Esterase 25 H Urine RBC 0 SEEN Urine WBC 0-5 SEEN Ur Squamous Epith Cells 0-5 SEEN Urine Bacteria 1+ Urine Mucus 0 SEEN Acetone Level NEGATIVE POC Glucose 238 H Discharge Plan Triage Chief Complaint: Hyperglycemia ED Provider: Alanna Wheeler Dx/Rx/DC Orders Clinical Impression: Hyperglycemia due to diabetes mellitus Instructions: ED Diabetic Hyperglycemia Prescriptions: No Action (DME) compr.stocking,thigh,reg,large Misc See Rx Instructions .Route Qty: 2 5RF Rx Instructions: daily (DME) pen needle, diabetic [BD Ultra-Fine Jennifer Pen Needle] 32 gauge x 5/32 needle See Rx Instructions .Route Qty: 100 5RF Rx Instructions: BID fluconazole [Diflucan] 200 mg tablet 200 mg PO DAILY Qty: 2 0RF Rx Instructions: 1 tab, repeat in 3 days. (DME) blood-glucose meter Kit See Rx Instructions .Route Qty: 1 0RF Rx Instructions: As directed potassium chloride 20 mEq tablet extended release 20 meq PO DAILY Qty: 7 0RF amoxicillin-pot clavulanate 875-125 mg tablet 1 tab PO BID Qty: 20 0RF furosemide [Lasix] 20 mg tablet 20 mg PO DAILY PRN (Reason: edema) Qty: 7 0RF Jardiance 25 mg tablet 25 mg PO DAILY Qty: 30 5RF metformin 500 mg tablet 1,000 mg PO BID Qty: 120 5RF insulin degludec [Tresiba FlexTouch U-100] 100 unit/mL (3 mL) insulin pen 15 unit subcut QHS Qty: 4.5 5RF desipramine 25 mg tablet 25 mg PO QHS Qty: 30 5RF lisinopril 20 mg tablet 20 mg PO DAILY Qty: 30 5RF (DME) True Metrix Glucose Test Strip Strip See Rx Instructions .Route Qty: 100 5RF Rx Instructions: BID Primary Care Provider: Amira Ballard Referrals: Amira Ballard, [facility] [Primary Care Provider] - Activity Restrictions/Additional Instructions: Your blood sugar was elevated today however you do not have findings consistent with a diabetic crisis or ketoacidosis. You are given IV fluids and a small dose of insulin. Please continue to work on diabetic diet, drink plenty of fluids and follow-up with your primary care doctor. The remainder of your workup was largely normal. Please return if you have worsening symptoms or further concerns. Print Language: Arabic Disposition Disposition: Home, Self Care
[2024-03-07] MEDS: 0.9% Normal Saline (1000mL) 1,000 ML 999 ML IV (09:34)
[2024-03-07 09:37] LABS: Mucous, Urine 0 SEEN /hpf (<or=2+); Red Blood Cells-Urine 0 SEEN /hpf (0-5)
[2024-03-07 09:39] LABS: Color, Urine Yellow (Yellow); Glucose, Dipstick 1000 mg/dl (Normal); Ketone-Dipstick Negative (Negative); Leukocyte Esterase-Dipstick 25 /ul (Negative); Nitrite-Dipstick Negative (Negative); Occult Blood-Urine 10 /ul (Negative); Protein-Dipstick 30 mg/dl (Negative); Specific Gravity, Urine 1.025 (1.002-1.030); Urine Bilirubin Dipstick Negative (Negative); Urine Clarity Sl. Cloudy (Clear); Urine Urobilinogen Normal (Normal)
[2024-03-07 09:39] LABS: Anion Gap 5 (5-15); BUN 16 mg/dL (7-18); BUN/Creat Ratio 21.6 RATIO (10-20); Calcium,Total 9.1 mg/dL (8.5-10.1); Chloride 103 mmol/L (98-107); Creatinine, Serum 0.74 mg/dL (0.55-1.02); EST Glomerular Filtration Rate 87 mL/min (>60); Est Glom Filt Rate - Afr Amer 105 mL/min (>60); Estimated Creatinine Clearance 95.63 ml/min; Glucose 327 mg/dL (74-106); Potassium 3.8 mmol/L (3.5-5.1); Sodium Level 134 mmol/L (136-145)
[2024-03-07 09:53] LABS: Bacteria 1+ /hpf (None Seen); Squamous Epithelial Cells - UA 0-5 SEEN /hpf (5-10); White Blood Cells 0-5 SEEN /hpf (0-5)
[2024-03-07 11:21] VITALS: PULSE 67; RESP 18
[2024-03-07 11:38] LABS: Bedside Glucose 238 mg/dL (74-106)
[2024-03-07] MEDS: Insulin Lispro 100 UNIT/ML INSULN.PEN SC (12:26)
[2024-03-07 12:30] VITALS: BP 137/78
== END 2024-03-07 12:30 | disposition home or self-care (01) ==
PROVIDERS: Emergency Provider Emergency Medicine; PCP Nurse Practitioner Family; Visit Provider Emergency Medicine
DX: E11.65 Type 2 diabetes mellitus with hyperglycemia (principal); Z79.4 Long term (current) use of insulin; I10 Essential (primary) hypertension; Z87.891 Personal history of nicotine dependence; Z90.49 Acquired absence of other specified parts of digestive tract; Z79.899 Other long term (current) drug therapy; Z79.84 Long term (current) use of oral hypoglycemic drugs; Z96.659 Presence of unspecified artificial knee joint; Z98.51 Tubal ligation status
CPT/HCPCS: 80048; 81001; 82009; 82962; 85025; 96360; 99285; A4216

== ENCOUNTER 2024-06-01 14:02 | Emergency (ER) | payer MEDICAID, SELFPAY ==
[2024-06-01 14:03] VITALS: BP 166/101; PULSE 81; RESP 15; TEMP 36.3; O2SAT 98; BMI 35.8
--- NOTE | 2024-06-01 14:20 | RAD_ITS ---
PROCEDURE: SHOULDER MIN 2 VIEWS REASON FOR EXAM: 2 day history of left shoulder injury. No known injury. TECHNIQUE: Four views of the left shoulder were obtained. COMPARISON: None. FINDINGS: LEFT SHOULDER: No fracture. No suspicious bone lesion. Normal alignment of the acromioclavicular and glenohumeral joints. Soft tissues are unremarkable. RAD/Shoulder min 2 Views IMPRESSION: NEGATIVE left shoulder. Reading Location: [facility]
--- NOTE | 2024-06-01 15:29 | EKG12_ITS ---
Test Reason : Blood Pressure : */* mmHG Vent. Rate : 84 BPM Atrial Rate : 84 BPM P-R Int : 162 ms QRS Dur : 70 ms QT Int : 346 ms P-R-T Axes : 66 16 -20 degrees QTcB Int : 408 ms Normal sinus rhythm Nonspecific ST changes Abnormal ECG Confirmed by Chemo Freitas ([id number]), news video editor TAM WILSON ([id number]) on 06/05/2024 10:54:00 AM Referred By: Rigoberto Rocha Confirmed By: Chemo Freitas
--- NOTE | 2024-06-01 15:35 | EX.ED.UPPERE ---
HPI History of Present Illness Chief Complaint: Upper Extremity Injury Narrative Narrative: Patient is a 54-year-old female past medical history diabetes, hypertension, arthritis, anxiety, bipolar disorder who presents to the emergency department chief complaint of left shoulder pain. Patient states that her pain has been going on approximately for 2 days and notes that she may have moved some heavy boxes of prior to her pain starting. States that she has not been taking anything for pain at home. She did complain of some left elbow pain as well but states that mainly when she tries to pick something up and goes into her shoulder. Patient states that she does not take her medications like she should. Patient denies chest pain shortness of breath. [facility] Medical History Cellulitis of left axilla Incontinence Asthma Knee pain SOB (shortness of breath) HTN (hypertension) Arthritis Abdominal pain, left lower quadrant Anxiety disorder Bipolar disorder Home Medications ?Medication ?Instructions ?Recorded ?Last Taken ?Type blood-glucose meter #1 ea 01/12/22 Unknown Rx compr.stocking,thigh,reg,large #2 ea 12/10/22 Unknown Rx pen needle, diabetic 32 gauge x #100 ea 12/10/22 Unknown Rx 5/32 (BD Ultra-Fine Jennifer Pen Needle) fluconazole 200 mg tablet 200 mg PO DAILY #2 tabs 10/20/23 Unknown Rx (Diflucan) blood sugar diagnostic (True #100 ea 11/18/23 Unknown Rx Metrix Glucose Test Strip) desipramine 25 mg tablet 25 mg PO QHS #30 tabs 11/18/23 Unknown Rx empagliflozin 25 mg tablet 25 mg PO DAILY #30 tabs 11/18/23 Unknown Rx (Jardiance) lisinopril 20 mg tablet 20 mg PO DAILY #30 tabs 11/18/23 Unknown Rx metformin 500 mg tablet 1,000 mg (2 x 500 mg) PO BID #120 11/18/23 Unknown Rx tabs amoxicillin 875 mg-potassium 1 tab PO BID #20 tabs 02/05/24 Unknown Rx clavulanate 125 mg tablet furosemide 20 mg tablet (Lasix) 20 mg PO DAILY PRN edema #7 tabs 02/05/24 Unknown Rx potassium chloride 20 mEq 20 meq PO DAILY #7 tabs 02/05/24 Unknown Rx tablet,extended release insulin degludec 100 unit/mL (3 15 unit (0.15 mL) subcut QHS #4.5 04/13/24 Unknown Rx mL) subcutaneous pen (Tresiba mL FlexTouch U-100 insulin) Allergy/AdvReac Type Severity Reaction Status Date / Time latex Allergy Rash Verified 06/01/24 14:05 acetaminophen AdvReac Mild Other Verified 06/01/24 14:05 Family History Mother Hypertension High cholesterol Father Hypertension Other Cancer Surgical History History of total knee replacement History of tubal ligation History of History of colectomy History of appendectomy History of laparoscopic cholecystectomy Social History household members: none current occupational status: employed Smoking Status: Former smoker alcohol intake: never substance use type: does not use ROS ROS ED ROS Narrative Constitutional: Denies fevers, chills, headaches, lightness, dizziness Eyes: Denies change in vision double vision blurry vision Cardiovascular: Denies chest pain or palpitations Respiratory: Denies coughing wheezing shortness of breath Abdomen: Denies abdominal pain nausea vomit diarrhea : Denies any urinary symptoms Neurological: Denies numbness, weakness, tingling Musculoskeletal: Complains of left shoulder and elbow pain as noted above Skin: Denies rashes or lesions EXAM Physical Exam Narrative Exam Narrative: General: Patient was lying in bed rest comfortably did not appear to be in acute distress Head: Atraumatic, normocephalic Eyes: PERRL bilaterally, EOMI bilaterally, no conjunctival injection noted Neck: Soft, supple, trachea midline Cardiovascular: Regular rate and rhythm no murmurs gallops rubs noted Respiratory: Clear to auscultation bilaterally no rales rhonchi or wheezes noted Abdomen: Soft, nondistended, no tenderness to palpation Extremities: +5/5 strength noted in the bilateral upper and lower extremities, radial pulses +2/4 in the bilateral per extremities patient was able to give me the okay sign thumbs up and oppose her thumb to her pinky is bilaterally. Musculoskeletal: Patient has no pain with attempted range of motion of her left elbow, no pain bony pain on palpation of the left elbow, patient can move her left shoulder she states that she does have some pain with attempted range of motion. Empty can test negative. No tenderness palpation over the biceps tendon Neurological: Patient following commands knew that she was at [facility] year is 2024. Sensation grossly intact in the median ulnar radial nerve and axillary nerve distribution bilaterally Skin: Warm, dry, intact no rashes or lesions noted Const Vital Signs: 06/01/24 14:03 Temperature 97.3 F L Temperature Source Temporal Pulse Rate 81 Respiratory Rate 15 Blood Pressure 166/101 H Blood Pressure Mean 122 Pulse Ox 98 Oxygen Delivery Method Room Air MDM MDM MDM Narrative Medical decision making narrative: Patient is a 54-year-old female who presents to the emerged part with a chief complaint of left shoulder pain. On the differential diagnose includes Melamin to musculoskeletal strain, bicep tendinitis, rotator cuff tear. Once workup is obtained reviewed she will be reevaluated. Patient given IM Toradol. Patient EKG reviewed by myself which showed sinus rhythm with a rate of 84 bpm. Patient x-ray of her left shoulder reviewed by myself by radiology and showed no acute fracture or dislocation. On reevaluation the patient she is feeling better she like to go home and splint time. I offered her sling she states that she already has 1 at home. She is advised to do pendulum swings to prevent from frozen shoulder. She was advised to rotate Tylenol and ibuprofen [id number] for pain control. She was referred to orthopedics and advised to also follow-up with her primary care physician. She is encouraged return with worsening symptoms or concerns. She is agreeable to plan all question concerns answered she is discharged home in stable condition. Discharge Plan Triage Chief Complaint: Upper Extremity Injury ED Provider: Rigoberto Rocha Dx/Rx/DC Orders Clinical Impression: Left shoulder pain Prescriptions: No Action (DME) compr.stocking,thigh,reg,large Misc See Rx Instructions .Route Qty: 2 5RF Rx Instructions: daily (DME) pen needle, diabetic [BD Ultra-Fine Jennifer Pen Needle] 32 gauge x 5/32 needle See Rx Instructions .Route Qty: 100 5RF Rx Instructions: BID fluconazole [Diflucan] 200 mg tablet 200 mg PO DAILY Qty: 2 0RF Rx Instructions: 1 tab, repeat in 3 days. (DME) blood-glucose meter Kit See Rx Instructions .Route Qty: 1 0RF Rx Instructions: As directed potassium chloride 20 mEq tablet extended release 20 meq PO DAILY Qty: 7 0RF amoxicillin-pot clavulanate 875-125 mg tablet 1 tab PO BID Qty: 20 0RF furosemide [Lasix] 20 mg tablet 20 mg PO DAILY PRN (Reason: edema) Qty: 7 0RF Jardiance 25 mg tablet 25 mg PO DAILY Qty: 30 5RF metformin 500 mg tablet 1,000 mg PO BID Qty: 120 5RF desipramine 25 mg tablet 25 mg PO QHS Qty: 30 5RF lisinopril 20 mg tablet 20 mg PO DAILY Qty: 30 5RF (DME) True Metrix Glucose Test Strip Strip See Rx Instructions .Route Qty: 100 5RF Rx Instructions: BID insulin degludec [Tresiba FlexTouch U-100] 100 unit/mL (3 mL) insulin pen 15 unit subcut QHS Qty: 4.5 5RF Primary Care Provider: Amira Ballard Referrals: Amira Ballard, [employer] [Primary Care Provider] - Activity Restrictions/Additional Instructions: Follow-up with your primary care physician outpatient setting. Rotate Tylenol and ibuprofen [id number] when you do this you can take something every 3 hours max dose of Tylenol is 4000 mg max dose of ibuprofen is 3200 mg. Follow-up with the bone doctor you referred to. Return with worsening symptoms or any concerns. Print Language: Danish Disposition Disposition: Home, Self Care
[2024-06-01] MEDS: Ketorolac 30 MG/ML Syringe IM (15:41)
[2024-06-01 16:29] VITALS: BP 139/65; PULSE 69; RESP 14; TEMP 36.6; O2SAT 98
== END 2024-06-01 16:30 | disposition home or self-care (01) ==
PROVIDERS: Emergency Provider Emergency Medicine; PCP Nurse Practitioner Family; Referring Provider Emergency Medicine; Visit Provider Emergency Medicine
DX: M25.512 Pain in left shoulder (principal); F31.9 Bipolar disorder, unspecified; E11.9 Type 2 diabetes mellitus without complications; F41.9 Anxiety disorder, unspecified; Z87.891 Personal history of nicotine dependence; M25.522 Pain in left elbow; I10 Essential (primary) hypertension; Z90.49 Acquired absence of other specified parts of digestive tract; Z98.51 Tubal ligation status
CPT/HCPCS: 73030; 93005; 96372; 99282

== ENCOUNTER 2024-07-25 23:26 | Emergency (ER) | payer MEDICAID, SELFPAY ==
[2024-07-25 23:28] VITALS: BP 156/99; PULSE 98; RESP 20; TEMP 36.8; O2SAT 98; BMI 38.7
[2024-07-25 23:29] VITALS: BP 156/99; PULSE 98; RESP 20; TEMP 36.8; O2SAT 98
--- NOTE | 2024-07-26 00:21 | RAD_ITS ---
PROCEDURE: CHEST PA AND LATERAL 07/26/2024 REASON FOR EXAM: COUGH TECHNIQUE: Frontal and lateral views of the chest. COMPARISON: None. FINDINGS: Mild bilateral peribronchial interstitial thickening which may represent peribronchial interstitial congestion and/or bronchitis. Mild diffuse spondylosis. There is no demonstrated pleural abnormality. Normal heart and pericardium. Normal mediastinum and elsa. Normal visualized pulmonary arteries. Normal visualized aortic arch and descending thoracic aorta. Normal visualized ribs, clavicles, and shoulders. There is no demonstrated abnormality of the visualized soft tissue structures of the upper abdomen. RAD/Chest PA and Lateral IMPRESSION: Mild bilateral peribronchial interstitial thickening which may represent peribr onchial interstitial congestion and/or bronchitis. Reading [facility]
[2024-07-26] MEDS: Ipratropium/Albuterol Sulfate 3 ML AMPUL.NEB INHALATION (00:24)
[2024-07-26] MEDS: Albuterol Sulfate 8 gm Inhaler (60 puffs) 2 PUFF INHALATION (00:25)
[2024-07-26 00:29] VITALS: BP 156/99; PULSE 94; RESP 18; TEMP 36.8; O2SAT 98
[2024-07-26 00:30] VITALS: PULSE 94; RESP 18
[2024-07-26] MEDS: predniSONE 20 MG Tablet 60 MG PO (00:38)
[2024-07-26] MEDS: guaiFENesin/Codeine 5 ML UDC 10 ML PO (00:39)
[2024-07-26 01:27] VITALS: BP 112/68; PULSE 87; RESP 12; O2SAT 99
--- NOTE | 2024-07-26 01:37 | EX.ED.DYSGE1 ---
HPI History of Present Illness Chief Complaint: Cough Informant: patient Narrative Narrative: Patient is a 54-year-old female with past medical history of anxiety bipolar disorder hypertension and asthma. She states that she has had congestion cough and increased shortness of breath since Wednesday. She denies any known sick contacts. She states that there has been no fevers or chills and she denies any need for supplemental oxygen at baseline. However with her persistent cough and symptoms she is concerned for an infection and therefore comes in for evaluation [facility] Medical History Cellulitis of left axilla Incontinence Asthma Knee pain SOB (shortness of breath) HTN (hypertension) Arthritis Abdominal pain, left lower quadrant Anxiety disorder Bipolar disorder Home Medications ?Medication ?Instructions ?Recorded ?Last Taken ?Type blood-glucose meter #1 ea 01/12/22 Unknown Rx compr.stocking,thigh,reg,large #2 ea 12/10/22 Unknown Rx pen needle, diabetic 32 gauge x #100 ea 12/10/22 Unknown Rx /32 (BD Ultra-Fine Jennifer Pen Needle) blood sugar diagnostic (True #100 ea 11/18/23 Unknown Rx Metrix Glucose Test Strip) desipramine 25 mg tablet 25 mg PO QHS #30 tabs 11/18/23 Unknown Rx lisinopril 20 mg tablet 20 mg PO DAILY #30 tabs 11/18/23 Unknown Rx metformin 500 mg tablet 1,000 mg (2 x 500 mg) PO BID #120 11/18/23 Unknown Rx tabs empagliflozin 25 mg tablet 25 mg PO DAILY #30 tabs 07/18/24 Unknown Rx (Jardiance) insulin degludec 100 unit/mL (3 15 unit (0.15 mL) subcut QHS #4.5 07/18/24 Unknown Rx mL) subcutaneous pen (Tresiba mL FlexTouch U-100 insulin) azithromycin 250 mg tablet See Rx Instructions PO .COMPLEX #6 07/26/24 Unknown Rx (Zithromax Z-David) tabs codeine 10 mg-guaifenesin 100 mg/5 10 ml PO 4X/DAY PRN cold symptoms 07/26/24 Unknown Rx mL oral liquid (Guaifenesin AC) 7 days #280 mL prednisone 20 mg tablet 40 mg (2 x 20 mg) PO DAILY 5 days 07/26/24 Unknown Rx #10 tabs Allergy/AdvReac Type Severity Reaction Status Date / Time latex Allergy Rash Verified 07/25/24 23:27 acetaminophen AdvReac Mild Other Verified 07/25/24 23:27 Family History Mother Hypertension High cholesterol Father Hypertension Other Cancer Surgical History History of total knee replacement History of tubal ligation History of History of colectomy History of appendectomy History of laparoscopic cholecystectomy Social History household members: none current occupational status: employed Smoking Status: Former smoker alcohol intake: never substance use type: does not use ROS ROS ED Constitutional Constitutional ED: Denies chills or fever(s) Eyes Eyes: Denies change in vision ENT ENT ED: Reports rhinorrhea; Denies sore throat Cardiovascular Cardiovascular: Denies chest pain Respiratory/Chest Respiratory/Chest: Reports cough and dyspnea Gastrointestinal Gastrointestinal: Denies abdominal pain, diarrhea, nausea or vomiting Genitourinary Genitourinary ED: Denies dysuria Musculoskeletal Musculoskeletal: Denies myalgias Integumentary Denies rash Neurologic Neurologic: Denies headache(s) Hematologic/Lymphatic Hematologic/Lymphatic: Denies easy bleeding or easy bruising Allergic/Immunologic Allergic/Immunologic ED: Denies mouth swelling or tongue swelling EXAM Physical Exam Const Vital Signs: 07/25/24 23:28 07/25/24 23:29 07/26/24 00:29 Temperature 98.2 F 98.2 F 98.2 F Temperature Source Oral Oral Oral Pulse Rate 98 98 94 Respiratory Rate 20 H 20 H 18 Respiratory Effort Respiratory Depth Respiratory Pattern Blood Pressure 156/99 H 156/99 H 156/99 H Blood Pressure Mean 118 118 118 Pulse Ox 98 98 98 Oxygen Delivery Method Room Air Room Air Room Air 07/26/24 00:30 07/26/24 00:42 07/26/24 01:27 Temperature Temperature Source Pulse Rate 94 87 Respiratory Rate 18 12 Respiratory Effort Short of Breath Respiratory Depth Normal Respiratory Pattern Normal Blood Pressure 112/68 Blood Pressure Mean 82 Pulse Ox 99 Oxygen Delivery Method Room Air Room Air 07/26/24 01:52 Temperature 98.8 F Temperature Source Pulse Rate 94 Respiratory Rate 18 Respiratory Effort Respiratory Depth Respiratory Pattern Blood Pressure 116/57 L Blood Pressure Mean 76 Pulse Ox 95 Oxygen Delivery Method Positive well nourished, well developed and obese General Appearance ED: well developed; Negative for pallor Nutritional Appearance: obese HEENT HEENT Narrative: Normocephalic atraumatic No tongue or lip swelling no oral lesions no airway edema or compromise Nasal mucosa is hyperemic and boggy There is cobblestoning noted in the posterior pharynx consistent with sinus drainage Eyes PERRL and EOMs intact bilaterally General Eye ED: Negative for scleral icterus Neck supple and no JVD Resp normal respiratory effort Resp Narrative: Breath sounds are diminished throughout with diffuse expiratory wheeze and rhonchi in the bilateral bases However no nasal flaring retractions stridor or accessory muscle use Cardio regular rate and regular rhythm Extremity normal to inspection Extremity Narrative: No asymmetric edema no pitting edema negative Homans' sign bilaterally Neuro oriented x3, CN's II-XII intact bilaterally and no sensory deficits noted Sensorium / Orientation: alert Motor Exam: strength 5/5 throughout Psych mental status grossly normal Skin no rashes or lesions noted General Skin Exam: Negative for jaundice or pallor MDM MDM MDM Narrative Medical decision making narrative: Patient arrived to the ER hypertensive but otherwise in no acute respiratory distress satting 98 to 100% on room air. History and exam is consistent with viral infection such as COVID versus influenza versus RSV. There is also concern for potential pneumonia or pneumothorax. At this time she is afebrile and she is in no acute distress and therefore I felt no need for workup other than chest x-ray. X-ray revealed signs consistent with bronchitis but no true pneumonia or pneumothorax or pleural effusion. After receiving breathing treatments and steroids and cough suppressants in the ER patient had improvement of her symptoms. At this time she is not in respiratory distress she is not hypoxic or requiring supplemental oxygen and therefore there is no need for admission or further workup and she is otherwise safe for discharge History & Record Review Discussion w/independent historian: Patient Radiography Diagnostic Testing: Clinical Impression(s) from Imaging Studies Chest X-Ray 07/26/24 00:21 IMPRESSION: Mild bilateral peribronchial interstitial thickening which may represent peribronchial interstitial congestion and/or bronchitis. Reading Location: [place] [id number] Chest x-ray as interpreted by the emergency medicine physician reveals hazy opacities in the bilateral lower lobes consistent with bronchitis without acute infiltrate or pneumothorax Discharge Plan Triage Chief Complaint: Cough Other Complaint: Abd Pain ED Provider: Liban Medina Dx/Rx/DC Orders Clinical Impression: Acute asthmatic bronchitis, HTN (hypertension), Bipolar disorder Instructions: Acute Bronchitis Prescriptions: New azithromycin [Zithromax Z-David] 250 mg tablet See Rx Instructions .ROUTE .COMPLEX Qty: 6 0RF Rx Instructions: For 250 mg dose pack: take 500 mg today (day 1), then 250 mg for 4 days (days 2-5) prednisone 20 mg tablet 40 mg PO DAILY 5 Days Qty: 10 0RF codeine-guaifenesin [Guaifenesin AC] 10-100 mg/5 mL liquid 10 ml PO 4X/DAY PRN (Reason: cold symptoms) 7 Days Qty: 280 0RF No Action (DME) compr.stocking,thigh,reg,large Misc See Rx Instructions .Route Qty: 2 5RF Rx Instructions: daily (DME) pen needle, diabetic [BD Ultra-Fine Jennifer Pen Needle] 32 gauge x 5/32 needle See Rx Instructions .Route Qty: 100 5RF Rx Instructions: BID (DME) blood-glucose meter Kit See Rx Instructions .Route Qty: 1 0RF Rx Instructions: As directed metformin 500 mg tablet 1,000 mg PO BID Qty: 120 5RF desipramine 25 mg tablet 25 mg PO QHS Qty: 30 5RF lisinopril 20 mg tablet 20 mg PO DAILY Qty: 30 5RF (DME) True Metrix Glucose Test Strip Strip See Rx Instructions .Route Qty: 100 5RF Rx Instructions: BID Jardiance 25 mg tablet 25 mg PO DAILY Qty: 30 5RF insulin degludec [Tresiba FlexTouch U-100] 100 unit/mL (3 mL) insulin pen 15 unit subcut QHS Qty: 4.5 5RF Stand Alone Forms: ED Work / School Excuse Primary Care Provider: Care Physician,No Primary Referrals: Babak Wright MD [Med Staff - Active Staff] - Care Physician,No Primary [Primary Care Provider] - Print Language: Anguillan Disposition Disposition: Home, Self Care Discharge Date/Time: 07/26/24 01:53
[2024-07-26] MEDS: Azithromycin 250 MG Tablet 500 MG PO (01:51)
[2024-07-26 01:52] VITALS: BP 116/57; PULSE 94; RESP 18; TEMP 37.1; O2SAT 95
== END 2024-07-26 01:53 | disposition home or self-care (01) ==
PROVIDERS: Emergency Provider Emergency Medicine; Visit Provider Emergency Medicine
DX: J45.909 Unspecified asthma, uncomplicated (principal); F31.9 Bipolar disorder, unspecified; Z87.891 Personal history of nicotine dependence; R10.9 Unspecified abdominal pain; I10 Essential (primary) hypertension; E66.9 Obesity, unspecified; Z90.49 Acquired absence of other specified parts of digestive tract; Z98.51 Tubal ligation status; Z90.79 Acquired absence of other genital organ(s); F41.9 Anxiety disorder, unspecified
CPT/HCPCS: 71046; 94640; 99284

== ENCOUNTER 2024-10-08 13:13 | Emergency (ER) | payer OTHER, SELFPAY ==
[2024-10-08 13:14] VITALS: BP 142/95; PULSE 102; RESP 16; TEMP 36.4; O2SAT 98; BMI 38.5
[2024-10-08 14:11] LABS: Hematocrit 42.3 % (37-47); Hemoglobin 14.4 g/dL (12.0-15.0); Immature Granulocytes Count 0.040 X10^3/uL (0.0-0.0); Mean Corp Hgb Conc 34.0 g/dL (32-36); Mean Corpuscular Volume 86.3 fL (81-99); Mean Platelet Vol. 8.9 fl (6.2-12.0); NRBC Flagged by Analyzer 0 % (0-5); Platelet Count 338 K/mm3 (150-450); RBC Distribution Width CV 12.1 % (11.6-14.6); RBC Distribution Width SD 38.2 fl (35.1-43.9); Red Blood Count 4.90 M/mm3 (4.2-5.4); White Blood Count 7.4 K/mm3 (4.4-11.0)
[2024-10-08 15:13] VITALS: BP 138/86; PULSE 99; RESP 16; O2SAT 99
[2024-10-08 15:14] LABS: AST(SGOT) 28 U/L (<=31); Alanine Aminotransfer ALT/SGPT 24 U/L (<=34); Albumin, Serum 4.1 g/dL (3.5-5.0); Alkaline Phosphatase 150 U/L (35-104); Anion Gap 11 (5-15); BUN 17 mg/dL (4-19); BUN/Creat Ratio 25.4 RATIO (10-20); Calcium,Total 9.3 mg/dL (7.6-11.0); Carbon Dioxide 24.0 mmol/L (21.0-32.0); Chloride 102 mmol/L (98-108); Estimated Creatinine Clearance 103.14 ml/min (50-250); Globulin 2.7 g/dL (2.2-4.2); Glucose 203 mg/dL (70-99); Potassium 3.7 mmol/L (3.3-5.1); Pro- Brain NATRIURETIC PEPTIDE < 36 pg/mL (<=900)
[2024-10-08 15:45] VITALS: BP 135/92; PULSE 84; RESP 16; TEMP 36.6; O2SAT 99
== END 2024-10-08 15:47 | disposition home or self-care (01) ==
PROVIDERS: Physician Assistant; Emergency Provider Surgery; Visit Provider Surgery
DX: R60.0 Localized edema (principal); E11.9 Type 2 diabetes mellitus without complications; Z79.4 Long term (current) use of insulin; I10 Essential (primary) hypertension; Z87.891 Personal history of nicotine dependence; Z79.84 Long term (current) use of oral hypoglycemic drugs; Z79.899 Other long term (current) drug therapy; Z96.659 Presence of unspecified artificial knee joint; Z98.51 Tubal ligation status; Z90.49 Acquired absence of other specified parts of digestive tract
CPT/HCPCS: 71046; 80053; 83880; 85025; 93005; 99283; A4216

== ENCOUNTER 2024-10-26 17:47 | Emergency (ER) | payer SELFPAY ==
[2024-10-26 17:48] VITALS: BP 144/95; PULSE 96; RESP 17; TEMP 36.8; O2SAT 99; BMI 38.4
--- NOTE | 2024-10-26 18:05 | EDS_ITS ---
HPI <BECKIE Delaney - Last Filed: 10/26/24 18:08> History of Present Illness Chief Complaint: Lower Extremity Injury Narrative Narrative: 54-year-old female with PMH of DM2 noticed redness on her right medial calf last night. The redness has not changed. She denies fever, chills, nausea or vomiting. She states she has minor cat scratches on her legs. She was concerned this could be a blood clot prompting her to come in. She has no calf pain or swelling. No history of DVT/PE or recent respecters. No chest pain or shortness of breath. She states her blood sugars have been running normal for her. PFSH <BECKIE Delaney - Last Filed: 10/26/24 18:08> [facility] Medical History Cellulitis of left axilla Incontinence Asthma Knee pain SOB (shortness of breath) HTN (hypertension) Arthritis Abdominal pain, left lower quadrant Anxiety disorder Bipolar disorder Home Medications Medication Instructions Recorded Last Taken Type blood-glucose meter #1 ea 01/12/22 Unknown Rx pen needle, diabetic 32 gauge x #100 ea 12/10/22 Unkno wn Rx " (BD Ultra-Fine Jennifer Pen Needle) blood sugar diagnostic (True #100 ea 11/18/23 Unknown Rx Metrix Glucose Test Strip) desipramine 25 mg tablet 25 mg PO QHS #30 tabs Unknown Rx lisinopril 20 mg tablet 20 mg PO DAILY #30 tabs 11/03 08/26 Unknown Rx metformin 500 mg tablet 1,000 mg (2 x 500 mg) PO BID #120 11/18/23 Unknown Rx tabs empagliflozin 25 mg tablet 25 mg PO DAILY #30 tabs Unknown Rx (Jardiance) insulin degludec 100 unit/mL (3 15 unit (0.15 mL) subc ut QHS #4.5 07/18/24 Unknown Rx mL) subcutaneous pen (Tresiba mL FlexTouch U-100 insulin) compr.stocking,thigh,reg,large #2 ea 09/07/24 Unknown Rx cephalexin 500 mg capsule 500 mg PO Q6 7 days #28 CAPS ULES 10/26/24 Unknown Rx Allergy/AdvReac Type Severity Reaction Status Date / Time latex Allergy Rash Verified 10/26/24 17:49 acetaminophen AdvReac Mild Other Verified 10/26/24 17:49 Family History Mother Hypertension High cholesterol Father Hypertension Other Cancer Surgical History History of total knee replacement History of tubal ligation History of History of colectomy History of appendectomy History of laparoscopic cholecystectomy Social History household members: none current occupational status: employed Smoking Status: Former smoker alcohol intake: never substance use type: does not use ROS <BECKIE Delaney - Last Filed: 10/26/24 18:08> ROS ED ROS Narrative Constitutional: Negative for fever, chills, malaise. CVS: Negative for chest pain. Respiratory: Negative for shortness of breath. GI: Negative for nausea, vomiting. EXAM <BECKIE Delaney - Last Filed: 10/26/24 18:08> Physical Exam Narrative Exam Narrative: CONST: Patient sitting in no acute distress. EYES: Normal inspection. NECK: Normal inspection. RESP: No respiratory distress, CTAB. CVS: Regular rate and rhythm, no murmur, no gallop. SKIN: Warm sized area of patchy erythema right jovanna-medial calf, warm and slightly tender to touch. No fluctuance or crepitus. No lymphangitic streaking. Adjacent to this there is a 1 cm abrasion from a cat scratch. No calf edema or tenderness over the deep venous system. 2+ DP pulses. EXTREMITIES: Normal appearance, no pedal edema. NEURO: Alert and answering questions appropriately. PSYCH: Normal affect. Const Vital Signs: 10/26/24 17:48 Temperature 98.3 F Temperature Source Oral Pulse Rate 96 Respiratory Rate 17 Blood Pressure 144/95 H Blood Pressure Mean 111 Pulse Ox 99 Oxygen Delivery Method Room Air <Dr. Aki Funes MD - Last Filed: 10/26/24 18:15> Physical Exam Const Vital Signs: 10/26/24 17:48 Temperature 98.3 F Temperature Source Oral Pulse Rate 96 Respiratory Rate 17 Blood Pressure 144/95 H Blood Pressure Mean 111 Pulse Ox 99 Oxygen Delivery Method Room Air MDM <BECKIE Delaney - Last Filed: 10/26/24 18:08> [facility] Narrative Medical decision making narrative: 54-year-old female has an area of patchy erythema, warmth and tenderness on the right anterior medial calf. She was concerned this could be a blood clot but clinically it is appears more consistent with cellulitis. There is a small abrasion from her prior cat scratch adjacent to it which might of started it. She has no risk factors for DVT. I prescribed Keflex with first dose given here. The redness is outlined and she was given return precautions. She was discharged in stable condition. <Dr. Aki Funes MD - Last Filed: 10/26/24 18:15> [facility] Narrative Medical decision making narrative: 54-year-old female has an area of patchy erythema, warmth and tenderness on the right anterior medial calf. She was concerned this could be a blood clot but clinically it is appears more consistent with cellulitis. There is a small abrasion from her prior cat scratch adjacent to it which might of started it. She has no risk factors for DVT. I prescribed Keflex with first dose given here. The redness is outlined and she was given return precautions. She was discharged in stable condition. I have personally performed a face to face assessment of the patient and have reviewed the YONNY Note. I performed a substantive portion of the visit including all aspects of the following. My gleason findings include: History is patient has an erythematous slightly warm rash next to a cat scratch. There is no lymphangitis. There is no lymphadenopathy. There is no fluctuance. Heart is regular. Rate is normal. There is no murmur, gallop or rub. Furthermore there is no history of SBE, mitral prolapse or murmur. She is not on immunosuppressive meds. She does have a history of diabetes. Exam is blanching erythematous rash as previously described. No other abnormality noted Medical Decison Making since this rash is in close proximity to the scratch suspect this is cellulitis. Will treat with cephalexin. Other additions or changes: [None] Discharge Plan Triage Chief Complaint: Lower Extremity Injury ED Midlevel Provider: Naomie Warren ED Provider: Aki Funse Dx/Rx/DC Orders Clinical Impression: Cellulitis of right leg, Hx of type 2 diabetes mellitus, Neuropathy, Cat scratch of right lower leg Instructions: Cellulitis Dc Prescriptions: New cephalexin 500 mg capsule 500 mg PO Q6 7 Days Qty: 28 0RF No Action (DME) pen needle, diabetic [BD Ultra-Fine Jennifer Pen Needle] 32 gauge x 5/32" needle See Rx Instructions .Route Qty: 100 5RF Rx Instructions: BID (DME) compr.stocking,thigh,reg,large Misc See Rx Instructions .Route Qty: 2 5RF Rx Instructions: daily (DME) blood-glucose meter Kit See Rx Instructions .Route Qty: 1 0RF Rx Instructions: As directed metformin 500 mg tablet 1,000 mg PO BID Qty: 120 5RF desipramine 25 mg tablet 25 mg PO QHS Qty: 30 5RF lisinopril 20 mg tablet 20 mg PO DAILY Qty: 30 5RF (DME) True Metrix Glucose Test Strip Strip See Rx Instructions .Route Qty: 100 5RF Rx Instructions: BID Jardiance 25 mg tablet 25 mg PO DAILY Qty: 30 5RF insulin degludec [Tresiba FlexTouch U-100] 100 unit/mL (3 mL) insulin pen 15 unit subcut QHS Qty: 4.5 5RF Primary Care Provider: Care Physician,No Primary Referrals: Care Physician,No Primary [Primary Care Provider] - Activity Restrictions/Additional Instructions: I think this is early cellulitis or skin infection. Take antibiotics as instructed and Tylenol Motrin as needed for pain. If the redness is significantly spreading or developing a red streak up the leg or fever please come back to the emergency room. Print Language: Finnish Disposition Disposition: Home, Self Care
== END 2024-10-26 18:23 | disposition home or self-care (01) ==
LOC: ED 18:10
PROVIDERS: Emergency Provider Emergency Medicine; Visit Provider Emergency Medicine
DX: L03.115 Cellulitis of right lower limb (principal); E11.40 Type 2 diabetes mellitus with diabetic neuropathy, unspecified; Z87.891 Personal history of nicotine dependence; I10 Essential (primary) hypertension; M79.661 Pain in right lower leg; Z90.49 Acquired absence of other specified parts of digestive tract; Z98.51 Tubal ligation status; S80.811A Abrasion, right lower leg, initial encounter; W55.03XA Scratched by cat, initial encounter
CPT/HCPCS: 99282